=== PATIENT | female | born 1960 | race Caucasian/White ===

== ENCOUNTER 2019-02-20 09:53 | Inpatient (IN) | payer BC ==
[2019-02-20] MEDS ORDERED: Ondansetron INJ* 2 MG/ML VIAL IV PRN (10:10)
[2019-02-20] MEDS ORDERED: Ondansetron TAB* 4 MG PO PRN (11:03)
[2019-02-20] MEDS ORDERED: Ondansetron ODT TAB* 4 MG PO PRN (12:00)
[2019-02-20] MEDS ORDERED: fentaNYL PATCH 12 MCG/HR TRANSDERM SCH (12:00)
[2019-02-20] MEDS ORDERED: MORPHINE PO SCH (14:00)
[2019-02-20 14:56] LABS: ABS Basophils 0 10^3/ul (0-0.2); ABS Eosinophils 0.2 10^3/ul (0-0.6); ABS Lymphocytes 0.8 10^3/ul (1.0-4.8); ABS Monocytes 0.5 10^3/ul (0-0.8); ABS Neutrophils 4.7 10^3/ul (1.5-7.7); ABS Nucleated RBC 0 10^3/ul; Eosinophil % 2.8 %; Hematocrit 29 % (33-41); Hemoglobin 9.4 g/dL (12.0-16.0); Lymphocyte % 12.9 %; Mean Corpuscular HGB Conc 32 g/dL (31-36); Mean Corpuscular Hemoglobin 30 pg (27-31); Mean Corpuscular Volume 94 fL (80-97); Mean Platelet Volume 5.9 fL (7.4-10.4); Nucleated Red Blood Cells % 0.1; Platelet Count 522 10^3/uL (150-450); Red Blood Count 3.09 10^6 /uL (3.70-4.87); Red Cell Distribution Width 15 % (10.5-15); White Blood Count 6.3 10^3/uL (3.5-10.8)
[2019-02-20 15:05] LABS: Activated Partial Thrombo Time 40.3 seconds (26.0-36.3); INR 1.02 (0.77-1.02)
[2019-02-20] MEDS: Argatroban(*) 250 MG in NS 0.9% 250 ML* 247.5 ML IV SCH (15:16)
[2019-02-20 15:17] LABS: Albumin 2.7 g/dL (3.2-5.2); Albumin/Globulin Ratio 0.8 (1-3); BUN/Creatinine Ratio 30.5 (8-20); Calcium 8.6 mg/dL (8.6-10.3); EGFR African American 125.8 (>60); Globulin 3.6 g/dL (2-4); Potassium 4.1 mmol/L (3.5-5.0); Total Bilirubin 0.2 mg/dL (0.2-1.0); Total Protein 6.3 g/dL (6.4-8.9)
[2019-02-20] MEDS: fentaNYL Patch Check Q Shift 1 NOTE FOLLOW UP SCH (19:42)
[2019-02-20] MEDS: Amphetamine MIXED SALT TAB* 10 MG TAB PO SCH (20:15)
[2019-02-20] MEDS: Gabapentin CAP(*) 100 MG PO SCH (20:22)
[2019-02-20] MEDS: Atorvastatin* 40 MG TAB PO SCH (20:22)
[2019-02-20] MEDS: fentaNYL PATCH 12 MCG/HR TRANSDERM SCH (20:23)
[2019-02-21] MEDS: fentaNYL Patch Check Q Shift 1 NOTE FOLLOW UP SCH ×2 (06:34→19:18)
[2019-02-21] MEDS: Amphetamine MIXED SALT TAB* 10 MG TAB PO SCH ×2 (08:29→14:49)
[2019-02-21] MEDS: Gabapentin CAP(*) 100 MG PO SCH ×2 (09:00→20:53)
--- NOTE | 2019-02-21 11:53 | PN ---
Progress Note - Progress Note Date of Service: 02/21/19 SOAP: Subjective: []Doing well. Tolerating Argatroban. No complaints. Not in pain. Acetaminophen (Tylenol Tab*) 650 mg PO Q4H PRN PRN Reason: FEVER/PAIN Amphetamine/Dextroamphetamine (Adderall Tab*) 10 mg PO BID@0800,1300 [facility] Last Admin: 02/21/19 08:29 Dose: 10 mg Atorvastatin Calcium (Lipitor*) 40 mg PO 1700 [facility] Last Admin: 02/20/19 20:22 Dose: 40 mg Fentanyl (Duragesic Patch 12 Mcg/Hr *) 12 mcg TRANSDERM Q72HR@2100 [facility] Last Admin: 02/20/19 20:23 Dose: 12 mcg Gabapentin (Neurontin Cap(*)) 200 mg PO BID [facility] Last Admin: 02/21/19 09:00 Dose: Not Given Argatroban 250 mg/ Sodium (Chloride) 250 mls @ 8.87 mls/hr IV Q24H [facility]; Protocol Last Admin: 02/20/19 15:16 Dose: 8.4 mls/hr Morphine Sulfate (Morphine Oral Concentrate*) 5 mg PO Q4H PRN PRN Reason: PAIN Ondansetron HCl (Zofran Odt Tab*) 4 mg PO Q6H PRN PRN Reason: NAUSEA Pharmacy Profile Note (Fentanyl Patch Check Q Shift) 1 note FOLLOW UP 0700, 1900 [facility] Last Admin: 02/21/19 06:34 Dose: 1 note Objective: [] Vital Signs Temp Pulse Resp BP Pulse Ox 98.5 F 84 19 117/74 100 02/21/19 08:00 02/21/19 06:32 02/21/19 11:02 02/21/19 11:00 02/21/19 11:02 HEENT: MM, no lesions CTA RRR S1S2 +BS obese, NT ND Ext necrosis of L hand and good pusles other three. 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 Admission for titration of anticoagulation prior to amputation of necrotic hand. Plan: []1. Off pradaxa and will continue Argatroban. 2. Consider CT guided biopsy of lung lesion on Saturday 3. Plan amputation on Saturday. 4. Hold Argatroban 2 hrs prior to procedure and re-start as soon as feasible afterwards. 5. After amputation can go back on Pradaxa.
[2019-02-21] MEDS: Acetaminophen TAB* 325 MG PO PRN (14:49)
[2019-02-21] MEDS: Argatroban(*) 250 MG in NS 0.9% 250 ML* 247.5 ML IV SCH (14:49)
[2019-02-21] MEDS: Atorvastatin* 40 MG TAB PO SCH (17:30)
[2019-02-22 05:44] LABS: ABS Basophils 0 10^3/ul (0-0.2); ABS Eosinophils 0.2 10^3/ul (0-0.6); ABS Lymphocytes 0.6 10^3/ul (1.0-4.8); ABS Monocytes 0.4 10^3/ul (0-0.8); ABS Neutrophils 2.3 10^3/ul (1.5-7.7); ABS Nucleated RBC 0 10^3/ul; Eosinophil % 4.9 %; Hematocrit 24 % (33-41); Hemoglobin 7.9 g/dL (12.0-16.0); Lymphocyte % 17.3 %; Mean Corpuscular HGB Conc 33 g/dL (31-36); Mean Corpuscular Hemoglobin 30 pg (27-31); Mean Corpuscular Volume 92 fL (80-97); Nucleated Red Blood Cells % 0; Platelet Count 425 10^3/uL (150-450); Red Blood Count 2.63 10^6 /uL (3.70-4.87); Red Cell Distribution Width 15 % (10.5-15); White Blood Count 3.5 10^3/uL (3.5-10.8)
[2019-02-22 05:48] LABS: Activated Partial Thrombo Time 64.6 seconds (26.0-36.3); INR 1.52 (0.77-1.02)
[2019-02-22 05:55] LABS: ALT 5 U/L (7-52); Albumin 2.2 g/dL (3.2-5.2); Albumin/Globulin Ratio 0.7 (1-3); Alkaline Phosphatase 123 U/L (34-104); Blood Urea Nitrogen 18 mg/dL (6-24); CO2 Carbon Dioxide 28 mmol/L (22-32); Calcium 8.1 mg/dL (8.6-10.3); Chloride 105 mmol/L (101-111); EGFR African American 152.3 (>60); EGFR Non-African American 125.9 (>60); Globulin 3.2 g/dL (2-4); Glucose 93 mg/dL (70-100); Sodium 138 mmol/L (135-145); Total Protein 5.4 g/dL (6.4-8.9)
[2019-02-22 06:01] LABS: Anion Gap 5 mmol/L (2-11)
[2019-02-22 06:42] LABS: Potassium Redraw 3.8 mmol/L (3.5-5.0)
[2019-02-22] MEDS: fentaNYL Patch Check Q Shift 1 NOTE FOLLOW UP SCH ×2 (07:24→18:47)
--- NOTE | 2019-02-22 08:13 | PN ---
Progress Note - Progress Note Date of Service: 02/22/19 SOAP: Subjective: []Board but did fine yesterday. Pain controlled. Tolerating Argatroban. Acetaminophen (Tylenol Tab*) 650 mg PO Q4H PRN PRN Reason: FEVER/PAIN Last Admin: 02/21/19 14:49 Dose: 650 mg Amphetamine/Dextroamphetamine (Adderall Tab*) 10 mg PO BID@0800,1300 [facility] Last Admin: 02/21/19 14:49 Dose: 10 mg Atorvastatin Calcium (Lipitor*) 40 mg PO 1700 [facility] Last Admin: 02/21/19 17:30 Dose: 40 mg Fentanyl (Duragesic Patch 12 Mcg/Hr *) 12 mcg TRANSDERM Q72HR@2100 [facility] Last Admin: 02/20/19 20:23 Dose: 12 mcg Gabapentin (Neurontin Cap(*)) 200 mg PO BID [facility] Last Admin: 02/21/19 20:53 Dose: 200 mg Argatroban 250 mg/ Sodium (Chloride) 250 mls @ 8.87 mls/hr IV Q24H [facility]; Protocol Last Admin: 02/21/19 14:49 Dose: 6.3 mls/hr Morphine Sulfate (Morphine Oral Concentrate*) 5 mg PO Q4H PRN PRN Reason: PAIN Ondansetron HCl (Zofran Odt Tab*) 4 mg PO Q6H PRN PRN Reason: NAUSEA Pharmacy Profile Note (Fentanyl Patch Check Q Shift) 1 note FOLLOW UP 0700, 1900 [facility] Last Admin: 02/22/19 07:24 Dose: 1 not Objective: [] Vital Signs Temp Pulse Resp BP Pulse Ox 98 F 76 15 107/67 100 02/22/19 07:50 02/22/19 07:01 02/22/19 07:01 02/22/19 07:00 02/22/19 07:01 HEENT: MM, no lesions CTA RRR S1S2 +BS obese, NT ND Ext necrosis of L hand, bandaged today Neuro slow to respond but answering questions. 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 Admission for titration of anticoagulation prior to amputation of necrotic hand. Plan: []1. Off pradaxa and will continue Argatroban. 2. CT guided biopsy of lung lesion on Saturday, NPO after midnight 3. Plan amputation on Saturday. 4. Hold Argatroban 2 hrs prior to procedure and re-start as soon as feasible afterwards. 5. Anemia. Secondary to chronic disease, drop today likely delusion. Expect further blood loss with surgery. - Tx 1 U PRBC 5. After amputation can go back on Pradaxa.
[2019-02-22] MEDS: Gabapentin CAP(*) 100 MG PO SCH ×2 (09:16→20:48)
[2019-02-22] MEDS: Amphetamine MIXED SALT TAB* 10 MG TAB PO SCH ×2 (09:33→14:23)
[2019-02-22] MEDS: Acetaminophen TAB* 325 MG PO PRN (10:03)
[2019-02-22] MEDS: Atorvastatin* 40 MG TAB PO SCH (18:00)
[2019-02-22] MEDS: Morphine ORAL CONCENTRATE* 5 MG/0.25 ML ORAL.SYRIN PO PRN (21:48)
[2019-02-23] MEDS: Morphine ORAL CONCENTRATE* 5 MG/0.25 ML ORAL.SYRIN PO PRN (00:10)
[2019-02-23] MEDS: Argatroban(*) 250 MG in NS 0.9% 250 ML* 247.5 ML IV SCH ×3 (00:11→13:02)
[2019-02-23] MEDS: Acetaminophen TAB* 325 MG PO PRN ×2 (05:47→16:31)
[2019-02-23 07:01] LABS: ABS Basophils 0 10^3/ul (0-0.2); ABS Eosinophils 0.2 10^3/ul (0-0.6); ABS Lymphocytes 0.5 10^3/ul (1.0-4.8); ABS Monocytes 0.5 10^3/ul (0-0.8); ABS Neutrophils 3.8 10^3/ul (1.5-7.7); ABS Nucleated RBC 0 10^3/ul; Eosinophil % 3.9 %; Hematocrit 28 % (33-41); Hemoglobin 9.4 g/dL (12.0-16.0); Lymphocyte % 10.1 %; Mean Corpuscular HGB Conc 33 g/dL (31-36); Mean Corpuscular Hemoglobin 30 pg (27-31); Mean Corpuscular Volume 90 fL (80-97); Nucleated Red Blood Cells % 0; Platelet Count 432 10^3/uL (150-450); Red Blood Count 3.13 10^6 /uL (3.70-4.87); Red Cell Distribution Width 17 % (10.5-15); White Blood Count 5.1 10^3/uL (3.5-10.8)
[2019-02-23 07:22] LABS: Albumin 2.4 g/dL (3.2-5.2); Albumin/Globulin Ratio 0.7 (1-3); BUN/Creatinine Ratio 26.1 (8-20); Calcium 8.6 mg/dL (8.6-10.3); EGFR African American 167.7 (>60); EGFR Non-African American 138.6 (>60); Globulin 3.5 g/dL (2-4); Magnesium 1.7 mg/dL (1.9-2.7); Potassium 3.5 mmol/L (3.5-5.0); Total Bilirubin 0.3 mg/dL (0.2-1.0); Total Protein 5.9 g/dL (6.4-8.9)
[2019-02-23] MEDS: fentaNYL Patch Check Q Shift 1 NOTE FOLLOW UP SCH ×2 (07:37→21:27)
[2019-02-23] MEDS: Gabapentin CAP(*) 100 MG PO SCH ×2 (09:01→21:22)
[2019-02-23] MEDS: Amphetamine MIXED SALT TAB* 10 MG TAB PO SCH ×2 (09:01→13:07)
--- NOTE | 2019-02-23 09:28 | HP ---
Amended report to enter cosigning physician. PREOPERATIVE HISTORY AND PHYSICAL EXAM: DATE OF SURGERY/ADMISSION: 02/24/19 DATE OF OFFICE VISIT/ENCOUNTER: 02/19/19 ATTENDING SURGEON: Alexa ewing MD* (dictated by NAIN Carlton). PROCEDURE: Left hand amputation. HISTORY OF PRESENT ILLNESS: This is a 58-year-old female who has suffered from a sequence of unfortunate events recently. At the end of last year, she was diagnosed with uterine cancer and subsequently suffered from a hemorrhagic stroke and a thrombotic event in her left upper extremity. This has left her with a gangrenous left hand and she needs an amputation. She is treated by Dr. García. He plans to admit her to the hospital to address her anticoagulation to get her ready for surgery likely on 02/21/19. The drainage from her hand and wrist area has increased recently and there was some concern for infection. The patient is living at [facility] currently. She wears a brace on her hand and keeps it covered with a bandage. It was recently debrided by wound clinic doctor that resulted in a significant increase in the amount of bleeding. The patient was referred to Dr. Ewing by Dr. García for further evaluation and treatment consideration of the left hand. After medical history review of the patient and clinical evaluation, Dr. Ewing is recommending amputation of the left hand. The patient has consented to proceed. PAST MEDICAL HISTORY: 1. Heparin-induced thrombocytopenia. 2. History of heart attack. 3. History of DVT. 4. History of stroke. 5. Uterine cancer. PAST SURGICAL HISTORY: 1. . 2. Cholecystectomy. CURRENT MEDICATIONS: 1. Adderall 10 mg 1 tab twice a day. 2. Aspirin 325 mg daily. 3. Atorvastatin calcium 40 mg daily. 4. Bisacodyl 10 mg one suppository p.r.n., constipation. 5. Fentanyl 12 mcg apply and change patch q.72 hours. 6. Neurontin 100 mg 3 times a day. 7. Percocet 5/325 one to two tabs q.4 to 6 hours p.r.n. pain. 8. Pradaxa 150 mg twice a day. 9. Tylenol 325 mg 2 tabs every 4 hours p.r.n. pain. 10. Zofran 4 mg 1 every 12 hours as needed for nausea. ALLERGIES: HEPARIN. FAMILY MEDICAL HISTORY: Uterine cancer. SOCIAL HISTORY: The patient is currently a resident at [place]. She denies tobacco use, recreational drug use, and does not drink alcohol. REVIEW OF SYSTEMS: Negative for general, cephalic, cardiovascular, respiratory. GI: Positive for constipation. Negative . Musculoskeletal: Positive for current complaint and chronic neck/back pain. Integumentary: Positive for current complaint. Negative endocrine, neurologic, and hematologic symptoms. Infectious Disease: Negative for history of MRSA, hepatitis C, HIV. PHYSICAL EXAMINATION GENERAL: A well-developed, well-nourished 58-year-old female, in no acute distress. VITAL SIGNS: Height 5 feet 2 inches, weight 163 pounds, blood pressure 116/66. HEENT: Normocephalic, atraumatic. Pupils are equal, round, and reactive. Extraocular movements are intact. Throat is clear. NECK: Supple. No palpable lymph nodes. PULMONARY: Lungs are clear to auscultation bilaterally. No wheezes, rales, or rhonchi. CARDIOVASCULAR: Regular rate and rhythm. S1 and S2. No murmurs, rubs or gallops. ABDOMEN: Positive bowel sounds. Soft, nontender. MUSCULOSKELETAL: On exam of the left upper extremity, she has gangrene of her left hand, which extends proximal to the wrist on the dorsal aspect. There is some well- perfused skin on the volar aspect at the wrist and over the thenar eminence. There is no sign of active infection at this point, but there is a fair amount of bloody drainage. NEUROLOGIC: Alert and oriented x3. Cranial nerves II through XII are intact. IMPRESSION: Left hand gangrene. PLAN: The patient is scheduled to undergo a left hand amputation with Dr. Ewing on 02/24/19. Dr. García will admit the patient to the hospital a few days ahead of time to get her anticoagulation just right and then she will be seen back in the office by Dr. Ewing approximately 10 days postoperatively. We will plan on getting an x- ray of her left hand after she is admitted to the hospital to look for any evidence of osteomyelitis to help determine the level of amputation. Surgical procedure, risks, and benefits were explained to the patient and her daughter and all of their questions answered satisfactorily. NAIN CARLTON [id number]/[facility] #: [id number] NIRALI
--- NOTE | 2019-02-23 09:40 | PN ---
Progress Note - Progress Note Date of Service: 02/23/19 SOAP: Subjective: []Feeling OK, very nervous about surgery. Planned for surgery tomorrow 02/24 @ 0730. Goal of CT guided biopsy today, however unfortunately difficulty with coordination and may need to delay until 02/25. Daughter in room involved in care. Medications: Acetaminophen (Tylenol Tab*) 650 mg PO Q4H PRN PRN Reason: FEVER/PAIN Last Admin: 02/23/19 05:47 Dose: 650 mg Amphetamine/Dextroamphetamine (Adderall Tab*) 10 mg PO BID@0800,1300 [facility] Last Admin: 02/23/19 09:01 Dose: Not Given Atorvastatin Calcium (Lipitor*) 40 mg PO 1700 [facility] Last Admin: 02/22/19 18:00 Dose: 40 mg Fentanyl (Duragesic Patch 12 Mcg/Hr *) 12 mcg TRANSDERM Q72HR@2100 [facility] Last Admin: 02/20/19 20:23 Dose: 12 mcg Gabapentin (Neurontin Cap(*)) 200 mg PO BID [facility] Last Admin: 02/23/19 09:01 Dose: Not Given Argatroban 250 mg/ Sodium (Chloride) 250 mls @ 8.87 mls/hr IV Q24H [facility]; Protocol Last Admin: 02/23/19 07:36 Dose: 8.87 mls/hr Morphine Sulfate (Morphine Oral Concentrate*) 5 mg PO Q4H PRN PRN Reason: PAIN Last Admin: 02/23/19 00:10 Dose: 5 mg Ondansetron HCl (Zofran Odt Tab*) 4 mg PO Q6H PRN PRN Reason: NAUSEA Pharmacy Profile Note (Fentanyl Patch Check Q Shift) 1 note FOLLOW UP 0700, 1900 [facility] Last Admin: 02/23/19 07:37 Dose: 1 note Objective: [] Vital Signs Temp Pulse Resp BP Pulse Ox 99.1 F 77 11 135/77 96 02/23/19 08:51 02/23/19 09:00 02/23/19 09:00 02/23/19 08:00 02/23/19 09:00 A&Ox4, EOMI, communicating clearing and asking appropriate questions Left hemiparesis HRR, S1S2, SR on tele LS clear +BS, abd. soft and non-tender Left hand in brace, necrotic +PP=bilat., no edema noted Laboratory Results - last 24 hr 02/22/19 02/22/19 02/23/19 05:30 17:40 05:38 WBC 5.1 RBC 3.13 L Hgb 9.4 L Hct 28 L MCV 90 MCH 30 MCHC 33 RDW 17 H Plt Count 432 MPV 6.0 L Neut % (Auto) 74.9 Lymph % (Auto) 10.1 [place] % (Auto) 10.7 Eos % (Auto) 3.9 Baso % (Auto) 0.4 Absolute Neuts (auto) 3.8 Absolute Lymphs (auto) 0.5 L Absolute Monos (auto) 0.5 Absolute Eos (auto) 0.2 Absolute Basos (auto) 0 Absolute Nucleated RBC 0 Nucleated RBC % 0 APTT Sodium Potassium Chloride Carbon Dioxide Anion Gap BUN Creatinine Est GFR ( Amer) Est GFR (Non-Af Amer) BUN/Creatinine Ratio Glucose Calcium Magnesium Total Bilirubin AST ALT Alkaline Phosphatase Total Protein Albumin Globulin Albumin/Globulin Ratio Blood Type O Positive Antibody Screen Negative Crossmatch See Detail Donor Unit # [id number] Post-Trans Blood Type O Positive Post-Trans CLAIRE Negative 02/23/19 02/23/19 05:38 05:38 WBC RBC Hgb Hct MCV MCH MCHC RDW Plt Count MPV Neut % (Auto) Lymph % (Auto) [place] % (Auto) Eos % (Auto) Baso % (Auto) Absolute Neuts (auto) Absolute Lymphs (auto) Absolute Monos (auto) Absolute Eos (auto) Absolute Basos (auto) Absolute Nucleated RBC Nucleated RBC % APTT 65.2 H Sodium 138 Potassium 3.5 Chloride 104 Carbon Dioxide 28 Anion Gap 6 BUN 12 Creatinine 0.46 L Est GFR ( Amer) 167.7 Est GFR (Non-Af Amer) 138.6 BUN/Creatinine Ratio 26.1 H Glucose 85 Calcium 8.6 Magnesium 1.7 L Total Bilirubin 0.30 AST 12 L ALT 6 L Alkaline Phosphatase 130 H Total Protein 5.9 L Albumin 2.4 L Globulin 3.5 Albumin/Globulin Ratio 0.7 L Blood Type Antibody Screen Crossmatch Donor Unit # Post-Trans Blood Type Post-Trans CLAIRE Assessment: []58 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 Admission for titration of anticoagulation prior to amputation of necrotic left hand. Due to high risk for clotting will attempt biopsy of lung nodule for staging purposes while on argatroban. Plan: []1. Anti-coagulation: cont. Argatroban - hold 2 hours prior to surgery - resume approx. 1 hour post-op or as soon as feasible per surgeon's discretion r/t post-op bleeding - hopeful for CT guided biopsy of left lung nodule TRISTAN, likely 4/3 per busser, will need to hold argatroban 2 hours prior to biopsy and resume immediately post procedure, suggest monitoring overnight post biopsy - d/c home on pradaxa 2. Amputation: anti-coagulation as above - NPO after midnight - pt. and family with multiple questions regarding surgery, message send to Dr. Ewing - check CBC tomorrow pre-op, post-op, and 4/3 AM 3. Endometrial cancer: locally advanced and very high risk for debulking - biopsy of lung nodule for staging, re-eval. further tx. as outpatient Dispo: inpt. requiring intensive monitoring r/t coagulation risk
[2019-02-23] MEDS: Atorvastatin* 40 MG TAB PO SCH ×2 (13:07→15:44)
--- NOTE | 2019-02-23 16:14 | ECHO ---
Patient: VERNON SHEPARD [facility] Rec#: [id number] : 1960 Date: 02/23/2019 Age: 58y Height: 168 cm / 66.1 in Weight: 73 kg / 160.9 lbs Sex: F BSA: 1.83 Room#: ICU 3 Admit Date#: 02/20/2019 Type: Inpatient Referring: Corby García MD Reading: Samir Olmedo MD Tv Host: Lacey Breaux,ESDRASCS,RDMS CC: James Linn MD Transthoracic Echocardiogram Indication: [place] BP: 149/77 HR: 115 Rhythm: NSR Findings History: Metastatic uterine cancer, CVA, DVT Technical Comments: The study quality is good. Left Ventricle: The left ventricular chamber size is normal. Mild concentric left ventricular hypertrophy is observed. Global left ventricular wall motion and contractility are within normal limits. Left ventricular systolic function is at the lower limits of normal. The estimated ejection fraction is 50-55%. There is no consistent Doppler evidence of clinically significant diastolic dysfunction. Left Atrium: The left atrial chamber size is normal. Right Ventricle: The right ventricular chamber size and systolic function are within normal limits. Right Atrium: The right atrial cavity size is normal. Aortic Valve: The aortic valve is trileaflet. Systolic excursion of the aortic valve is normal. There is a trace of aortic regurgitation. There is no evidence of aortic stenosis. Mitral Valve: The mitral valve leaflets are mildly thickened. There is no evidence of mitral regurgitation. There is no evidence of mitral stenosis. Tricuspid Valve: The tricuspid valve leaflets are normal. There is no evidence of tricuspid valve regurgitation. Unable to estimate the right ventricular systolic pressure. Pulmonic Valve: The pulmonic valve structure is not well visualized. There is no evidence of pulmonic regurgitation. Pericardium: There is no significant pericardial effusion. Aorta: The aortic root appears normal. There is no dilatation of the aortic arch. Pulmonary Artery: The main pulmonary artery is not well visualized. Venous: The inferior vena cava appears normal in size. There is a greater than 50% respiratory change in the inferior vena cava dimension. Conclusions Mild concentric left ventricular hypertrophy is observed. Left ventricular systolic function is at the lower limits of normal. The estimated ejection fraction is 50-55%. The right ventricular chamber size and systolic function are within normal limits. There is no evidence of aortic stenosis. There is a trace of aortic regurgitation. There is no evidence of mitral regurgitation. There is no evidence of tricuspid valve regurgitation. There is no significant pericardial effusion. Measurements Name Value Normal Range RVIDd (AP) 2D 2.4 cm (0.9 - 2.6) RVDdMajor (2D) 2.1 cm (2.2 - 4.4) RAd ISD 4CH 5.2 cm (3.4 - 4.9) RA (A4C)W 2.9 cm (2.9 - 4.6) IVSd (2D) 1.1 cm (0.6 - 1) LVPWd (2D) 1.1 cm (0.6 - 1) LVIDd (2D) 4.7 cm (3.6 - 5.4) LVIDs (2D) 3 cm - LV FS (2D) 35 % (25 - 45) Aortic Annulus 2 cm (1.4 - 2.6) Ao root diameter (2D) 3.2 cm (2.1 - 3.5) Ascending Ao 2.8 cm (2.1 - 3.4) Aortic arch 2.4 cm (1.8 - 3.4) LA dimension (AP) 2D 3.2 cm (2.3 - 3.8) LAd ISD 4CH 4.6 cm (2.9 - 5.3) LA ISD 4CH W 4 cm (2.5 - 4.5) Name Value Normal Range LA ESV BP (A/L) index 19 ml/m2 - Name Value Normal Range MV E-wave Vmax 0.6 m/sec - MV deceleration time 74 msec - MV A-wave Vmax 0.8 m/sec - MV E:A ratio 0.7 ratio - P. vein S-wave Vmax 0.7 m/sec - P. vein D-wave Vmax 0.4 m/sec - P. vein S:D Vmax ratio 1.8 ratio - P. vein A-wave duration 92 msec - LV septal e' Vmax 0.06 m/sec - LV lateral e' Vmax 0.13 m/sec - LV E:e' septal ratio 10 ratio - LV E:e' lateral ratio 4 ratio - Name Value Normal Range AV Vmax 1.2 m/sec - AV VTI 19 cm - AV peak gradient 6 mmHg - AV mean gradient 3 mmHg - LVOT Vmax 0.9 m/sec - LVOT VTI 17 cm - LVOT peak gradient 3.2 mmHg - LVOT mean gradient 2 mmHg - KAROL Vmax 0.7 m/sec - Name Value Normal Range IVC diameter 1.4 cm - Name Value Normal Range PV Vmax 1.1 m/sec - PV peak gradient 5 mmHg -
[2019-02-23] MEDS: fentaNYL PATCH 12 MCG/HR TRANSDERM SCH (21:22)
[2019-02-24 04:36] LABS: ABS Basophils 0 10^3/ul (0-0.2); ABS Eosinophils 0.1 10^3/ul (0-0.6); ABS Lymphocytes 0.4 10^3/ul (1.0-4.8); ABS Monocytes 0.4 10^3/ul (0-0.8); ABS Neutrophils 2.7 10^3/ul (1.5-7.7); ABS Nucleated RBC 0 10^3/ul; Eosinophil % 3.6 %; Hematocrit 28 % (33-41); Hemoglobin 9.5 g/dL (12.0-16.0); Lymphocyte % 11.4 %; Mean Corpuscular HGB Conc 34 g/dL (31-36); Mean Corpuscular Hemoglobin 30 pg (27-31); Mean Corpuscular Volume 90 fL (80-97); Mean Platelet Volume 5.6 fL (7.4-10.4); Nucleated Red Blood Cells % 0.2; Platelet Count 408 10^3/uL (150-450); Red Blood Count 3.14 10^6 /uL (3.70-4.87); Red Cell Distribution Width 17 % (10.5-15); White Blood Count 3.7 10^3/uL (3.5-10.8)
[2019-02-24 04:46] LABS: EGFR African American 145.5 (>60); EGFR Non-African American 120.3 (>60)
[2019-02-24 04:54] LABS: INR 4.14 (0.77-1.02)
[2019-02-24 05:07] LABS: Activated Partial Thrombo Time 119.5 seconds (26.0-36.3)
[2019-02-24] MEDS ORDERED: Lactated Ringers 1000 ML Bag* 1,000 ML IV SCH (06:00)
[2019-02-24] MEDS: fentaNYL Patch Check Q Shift 1 NOTE FOLLOW UP SCH ×2 (07:07→19:29)
[2019-02-24] MEDS ORDERED: Lidocaine 1% INJ* 10 MG/ML 30 ML SDV ONE (07:11)
[2019-02-24] MEDS ORDERED: ceFAZolin 2 GM in NS PREMIX(*) 2 GM/100 ML BAG IVPB ONE (07:30)
[2019-02-24] MEDS ORDERED: Propofol* 10 MG/ML 20 ML BTL ONE (07:48)
[2019-02-24] MEDS ORDERED: Lidocaine 2% PF * 5 ML VIAL ONE (07:49)
[2019-02-24] MEDS ORDERED: Bupivacaine 0.5%* 50 ML VIAL ONE (07:52)
[2019-02-24] MEDS ORDERED: fentaNYL* 50 MCG/ML 2 ML VIAL (100 MCG VIAL) ONE ×3 (07:54→10:04)
[2019-02-24] MEDS ORDERED: oxyCODONE/Acetamin 5/325 MG* TAB PO PRN (09:10)
[2019-02-24] MEDS ORDERED: Naloxone* 0.4 MG/ML 1 ML VIAL IV PRN (09:13)
[2019-02-24] MEDS: fentaNYL* 50 MCG/ML 2 ML VIAL (100 MCG VIAL) IV PRN ×5 (09:28→10:06)
[2019-02-24] MEDS: Morphine ORAL CONCENTRATE* 5 MG/0.25 ML ORAL.SYRIN PO PRN (10:53)
[2019-02-24] MEDS: Amphetamine MIXED SALT TAB* 10 MG TAB PO SCH ×2 (11:07→14:26)
[2019-02-24] MEDS: Gabapentin CAP(*) 100 MG PO SCH ×2 (11:08→20:46)
[2019-02-24] MEDS: Argatroban(*) 250 MG in NS 0.9% 250 ML* 247.5 ML IV SCH ×2 (11:55→23:27)
[2019-02-24] MEDS ORDERED: Morphine 4 MG/ML VIAL (1 ml) 4 MG/ML VIAL ONE (12:07)
--- NOTE | 2019-02-24 12:11 | PN ---
Progress Note - Progress Note Date of Service: 02/24/19 SOAP: Subjective: [Amputation successfully completed. Patient is examined postoperatively in ICU. She is complaining of pain, but otherwise reports she tolerated the procedure well. Argatroban has been resumed.] Objective: [ Laboratory Results - last 24 hr 02/22/19 02/24/19 02/24/19 17:40 04:20 04:20 WBC 3.7 RBC 3.14 L Hgb 9.5 L Hct 28 L MCV 90 MCH 30 MCHC 34 RDW 17 H Plt Count 408 MPV 5.6 L Neut % (Auto) 72.7 Lymph % (Auto) 11.4 [place] % (Auto) 11.7 Eos % (Auto) 3.6 Baso % (Auto) 0.6 Absolute Neuts (auto) 2.7 Absolute Lymphs (auto) 0.4 L Absolute Monos (auto) 0.4 Absolute Eos (auto) 0.1 Absolute Basos (auto) 0 Absolute Nucleated RBC 0 Nucleated RBC % 0.2 INR (Anticoag Therapy) 4.14 H APTT 119.5 H* Creatinine Est GFR ( Amer) Est GFR (Non-Af Amer) POC Glucose (mg/dL) Transfusion React Rpt 02/24/19 02/24/19 04:20 06:08 WBC RBC Hgb Hct MCV MCH MCHC RDW Plt Count MPV Neut % (Auto) Lymph % (Auto) [place] % (Auto) Eos % (Auto) Baso % (Auto) Absolute Neuts (auto) Absolute Lymphs (auto) Absolute Monos (auto) Absolute Eos (auto) Absolute Basos (auto) Absolute Nucleated RBC Nucleated RBC % INR (Anticoag Therapy) APTT Creatinine 0.52 Est GFR ( Amer) 145.5 Est GFR (Non-Af Amer) 120.3 POC Glucose (mg/dL) 89 Transfusion React Rpt Acetaminophen (Tylenol Tab*) 650 mg PO Q4H PRN PRN Reason: FEVER/PAIN Last Admin: 02/23/19 16:31 Dose: 650 mg Amphetamine/Dextroamphetamine (Adderall Tab*) 10 mg PO BID@0800,1300 [facility] Last Admin: 02/24/19 11:07 Dose: Not Given Atorvastatin Calcium (Lipitor*) 40 mg PO 1700 [facility] Last Admin: 02/23/19 15:44 Dose: Not Given Fentanyl (Duragesic Patch 12 Mcg/Hr *) 12 mcg TRANSDERM Q72HR@2100 [facility] Last Admin: 02/23/19 21:22 Dose: 12 mcg Gabapentin (Neurontin Cap(*)) 200 mg PO BID [facility] Last Admin: 02/24/19 11:08 Dose: Not Given Lactated Ringer's (Lactated Ringers 1000 Ml Bag*) 1,000 mls @ 125 mls/hr IV PER RATE [facility] Last Admin: 02/24/19 05:15 Dose: 125 mls/hr Argatroban 250 mg/ Sodium (Chloride) 250 mls @ 6.65 mls/hr IV Q24H [facility]; Protocol Last Admin: 02/24/19 11:55 Dose: 6.65 mls/hr Morphine Sulfate (Morphine Oral Concentrate*) 5 mg PO Q4H PRN PRN Reason: PAIN Last Admin: 02/24/19 10:53 Dose: 5 mg Morphine Sulfate (Morphine 4 Mg/Ml Vial (1 Ml)) 4 mg IV Q2H PRN PRN Reason: PAIN Ondansetron HCl (Zofran Odt Tab*) 4 mg PO Q6H PRN PRN Reason: NAUSEA Pharmacy Profile Note (Fentanyl Patch Check Q Shift) 1 note FOLLOW UP 0700, 1900 [facility] Last Admin: 02/24/19 07:07 Dose: 1 note Vital Signs: Temp Pulse Resp BP Pulse Ox 96.8 F 90 19 136/81 98 02/24/19 09:09 02/24/19 11:30 02/24/19 11:30 02/24/19 11:30 02/24/19 11:30 Exam: Gen: Chronically ill appearing 58 yo female in [facility]. She is alert and lying comfortably accompanied by multiple family members HEENT: MMM CV: RRR, no m/r/g Resp: CTA Abd: soft, nonTTP Ext: clean surgical dressing over distal LUE, trace LE edema, L>R] [Assessment: []58 year old with h/o HIT and necrosis of Left hand as well as locally advanced to metastatic endometrial cancer. Admission for titration of anticoagulation prior to amputation of necrotic left hand. Due to high risk for clotting will attempt biopsy of lung nodule for staging purposes while on argatroban. Plan: []1. Anti-coagulation: - cont. Argatroban, it has now been resumed postoperatively - plan for CT guided biopsy of left lung nodule tomorrow, will need to hold argatroban 2 hours prior to biopsy and resume immediately post procedure, suggest monitoring overnight post biopsy - d/c home on pradaxa 2. Amputation: -post op day 0 - postoperative management per ortho group 3. Endometrial cancer: locally advanced s/p palliative RT - biopsy of lung nodule to determine whether she has metastatic disease, re- eval. further tx. as outpatient Dispo: inpt. requiring intensive monitoring r/t coagulation risk. Anticipate dc back to ]
[2019-02-24] MEDS: Morphine 4 MG/ML VIAL (1 ml) 4 MG/ML VIAL IV PRN ×2 (12:31→19:14)
[2019-02-24] MEDS: ceFAZolin 1 GM* X 3 DOSES POST-OP Q8H (AddVan) IVPB SCH ×4 (16:07→23:33)
--- NOTE | 2019-02-24 16:13 | OP ---
DATE OF OPERATION: 02/23/19 - ROOM #ICU-03 DATE OF : 56 SURGEON: Alexa Ewing MD WRAPPING CHECKER: NAIN Carlton ANESTHESIA: General. PRE-OP DIAGNOSIS: Gangrene of the left hand. POST-OP DIAGNOSIS: Gangrene of the left hand. OPERATIVE PROCEDURE: Left wrist disarticulation. INDICATIONS: Cynthia is 58-year-old woman who suffered a blood clot in her upper extremity on the left side and has developed gangrene of her left hand. She presents for hand amputation. ESTIMATED BLOOD LOSS: Less than 20 mL. DESCRIPTION OF PROCEDURE: The patient was brought to the operating room, was given a general anesthetic and placed in the supine position on the operating table with a tourniquet around her left upper arm. Skin of her left upper extremity was prepped and draped in the usual sterile fashion with Betadine. The forearm was exsanguinated and the tourniquet elevated to 250 mmHg. Skin incisions were made following the contour of the necrosis. There was a flap of good skin on the palmar surface. We then debrided sharply down to the radiocarpal joint and excised the entire carpus and the hand. The ulnar median and radial sensory nerves were located, brought out on tension and then incised and allowed to retract into the wound. The flexor and extensor tendons were treated the same with proximal incision and they were allowed to retract into the wound. The radial styloid was removed with a saw and a rasp was used to smooth the edges of the radius. The ulnar styloid was removed with a rongeur. All necrotic appearing tissue was then completely debrided. There were several areas of full-thickness skin loss on the forearm, which had abundant granulation tissue, granulation tissue was debrided and since these areas were well perfused, it was decided to allow them to heal by secondary intention. The skin flap was then reapproximated using the palmar tissue, brought up on to the dorsal surface with 4-0 nylon suture. The end of the wrist joint was well padded with subcutaneous tissue. Prior to closure, the wound was cultured. A [place] drain was placed in the wound because the patient will be on anticoagulants and this was to help prevent a large hematoma from forming. The wound was dressed with Xeroform, 4x4, Webril, ABD, and an [place] wrap. The patient tolerated the procedure well and was brought to the recovery room in good condition. [id number]/[facility] #: [id number] NIRALI
[2019-02-24] MEDS: Atorvastatin* 40 MG TAB PO SCH (16:50)
[2019-02-24] MEDS: Acetaminophen TAB* 325 MG PO PRN (20:46)
[2019-02-25] MEDS: Morphine 4 MG/ML VIAL (1 ml) 4 MG/ML VIAL IV PRN ×2 (05:11→21:29)
[2019-02-25 05:28] LABS: ABS Basophils 0 10^3/ul (0-0.2); ABS Eosinophils 0.1 10^3/ul (0-0.6); ABS Lymphocytes 0.6 10^3/ul (1.0-4.8); ABS Monocytes 0.7 10^3/ul (0-0.8); ABS Neutrophils 3.3 10^3/ul (1.5-7.7); ABS Nucleated RBC 0 10^3/ul; Eosinophil % 2.4 %; Hematocrit 25 % (33-41); Hemoglobin 8.2 g/dL (12.0-16.0); Mean Corpuscular HGB Conc 33 g/dL (31-36); Mean Corpuscular Hemoglobin 30 pg (27-31); Mean Corpuscular Volume 92 fL (80-97); Mean Platelet Volume 5.9 fL (7.4-10.4); Nucleated Red Blood Cells % 0; Platelet Count 359 10^3/uL (150-450); Red Blood Count 2.73 10^6 /uL (3.70-4.87); Red Cell Distribution Width 17 % (10.5-15); White Blood Count 4.7 10^3/uL (3.5-10.8)
[2019-02-25 05:51] LABS: Albumin 2.2 g/dL (3.2-5.2); Albumin/Globulin Ratio 0.8 (1-3); BUN/Creatinine Ratio 18.2 (8-20); Calcium 8.3 mg/dL (8.6-10.3); EGFR African American 136.4 (>60); EGFR Non-African American 112.7 (>60); Globulin 2.8 g/dL (2-4); Potassium 3.8 mmol/L (3.5-5.0); Total Bilirubin 0.3 mg/dL (0.2-1.0)
[2019-02-25] MEDS: fentaNYL Patch Check Q Shift 1 NOTE FOLLOW UP SCH ×2 (06:57→19:21)
[2019-02-25] MEDS: ceFAZolin 1 GM* X 3 DOSES POST-OP Q8H (AddVan) IVPB SCH ×2 (08:27)
--- NOTE | 2019-02-25 10:30 | PN ---
Progress Note - Progress Note Date of Service: 02/25/19 SOAP: Subjective: [Reports that she is feeling relatively well this am. Pain controlled. No new complaints.] Objective: [ Vital Signs: Temp Pulse Resp BP Pulse Ox 99.8 F 83 12 110/63 100 02/25/19 07:40 02/25/19 07:00 02/25/19 07:47 02/25/19 07:00 02/25/19 07:00 Acetaminophen (Tylenol Tab*) 650 mg PO Q4H PRN PRN Reason: FEVER/PAIN Last Admin: 02/24/19 20:46 Dose: 650 mg Amphetamine/Dextroamphetamine (Adderall Tab*) 10 mg PO BID@0800,1300 [facility] Last Admin: 02/24/19 14:26 Dose: Not Given Atorvastatin Calcium (Lipitor*) 40 mg PO 1700 [facility] Last Admin: 02/24/19 16:50 Dose: 40 mg Dabigatran (Pradaxa Cap(Nf)) 150 mg PO BID [facility] Fentanyl (Duragesic Patch 12 Mcg/Hr *) 12 mcg TRANSDERM Q72HR@2100 [facility] Last Admin: 02/23/19 21:22 Dose: 12 mcg Gabapentin (Neurontin Cap(*)) 200 mg PO BID [facility] Last Admin: 02/24/19 20:46 Dose: 200 mg Lactated Ringer's (Lactated Ringers 1000 Ml Bag*) 1,000 mls @ 125 mls/hr IV PER RATE [facility] Last Admin: 02/24/19 05:15 Dose: 125 mls/hr Argatroban 250 mg/ Sodium (Chloride) 250 mls @ 6.65 mls/hr IV Q24H [facility]; Protocol Stop: 02/25/19 13:00 Last Admin: 02/24/19 11:55 Dose: 6.65 mls/hr Morphine Sulfate (Morphine Oral Concentrate*) 5 mg PO Q4H PRN PRN Reason: PAIN Last Admin: 02/24/19 10:53 Dose: 5 mg Morphine Sulfate (Morphine 4 Mg/Ml Vial (1 Ml)) 4 mg IV Q2H PRN PRN Reason: PAIN Last Admin: 02/25/19 05:11 Dose: 4 mg Ondansetron HCl (Zofran Odt Tab*) 4 mg PO Q6H PRN PRN Reason: NAUSEA Last Admin: 02/24/19 13:09 Dose: 4 mg Oxycodone/Acetaminophen (Percocet 5/325 Tab*) 1 tab PO Q4H PRN PRN Reason: PAIN Oxycodone/Acetaminophen (Percocet 5/325 Tab*) 2 tab PO Q4H PRN PRN Reason: PAIN MORE SEVERE Pharmacy Profile Note (Fentanyl Patch Check Q Shift) 1 note FOLLOW UP 0700, 1900 JOSE Last Admin: 02/25/19 06:57 Dose: 1 note Laboratory Results - last 24 hr 02/22/19 02/24/19 02/25/19 17:40 21:30 05:01 WBC RBC Hgb Hct MCV MCH MCHC RDW Plt Count MPV Neut % (Auto) Lymph % (Auto) Early % (Auto) Eos % (Auto) Baso % (Auto) Absolute Neuts (auto) Absolute Lymphs (auto) Absolute Monos (auto) Absolute Eos (auto) Absolute Basos (auto) Absolute Nucleated RBC Nucleated RBC % APTT 55.3 H Sodium 136 Potassium 3.8 Chloride 104 Carbon Dioxide 28 Anion Gap 4 BUN 10 Creatinine 0.55 Est GFR ( Amer) 136.4 Est GFR (Non-Af Amer) 112.7 BUN/Creatinine Ratio 18.2 Glucose 91 Calcium 8.3 L Total Bilirubin 0.30 AST 10 L ALT 6 L Alkaline Phosphatase 108 H Total Protein 5.0 L Albumin 2.2 L Globulin 2.8 Albumin/Globulin Ratio 0.8 L Reaction Interpretation 02/25/19 02/25/19 02/25/19 05:10 05:10 09:15 WBC 4.7 RBC 2.73 L Hgb 8.2 L Hct 25 L MCV 92 MCH 30 MCHC 33 RDW 17 H Plt Count 359 MPV 5.9 L Neut % (Auto) 70.3 Lymph % (Auto) 13.0 Early % (Auto) 13.8 Eos % (Auto) 2.4 Baso % (Auto) 0.5 Absolute Neuts (auto) 3.3 Absolute Lymphs (auto) 0.6 L Absolute Monos (auto) 0.7 Absolute Eos (auto) 0.1 Absolute Basos (auto) 0 Absolute Nucleated RBC 0 Nucleated RBC % 0 APTT 41.3 H 66.6 H Sodium Potassium Chloride Carbon Dioxide Anion Gap BUN Creatinine Est GFR ( Amer) Est GFR (Non-Af Amer) BUN/Creatinine Ratio Glucose Calcium Total Bilirubin AST ALT Alkaline Phosphatase Total Protein Albumin Globulin Albumin/Globulin Ratio Reaction Interpretation Exam: Gen: Chronically ill appearing 58 yo female in NAD. 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 Admission for titration of anticoagulation prior to amputation of necrotic left hand. Due to high risk for clotting will attempt biopsy of lung nodule for staging purposes while on argatroban. Plan: []1. Anti-coagulation: - cont. Argatroban this am, plan to stop at 1300 with lung biopsy scheduled for 1500, can resume Pradaxa following the biopsy 2. Amputation: -post op day 1 - postoperative management per ortho group 3. Endometrial cancer: locally advanced s/p palliative RT - biopsy of lung nodule to determine whether she has metastatic disease, re- eval. further tx. as outpatient Dispo: inpt. requiring intensive monitoring r/t coagulation risk. Anticipate dc back to [facility] tomorrow am
[2019-02-25] MEDS: oxyCODONE/Acetamin 5/325 MG* TAB PO PRN ×2 (12:39→19:44)
[2019-02-25] MEDS: Gabapentin CAP(*) 100 MG PO SCH ×2 (12:40→21:20)
[2019-02-25] MEDS: Amphetamine MIXED SALT TAB* 10 MG TAB PO SCH ×2 (12:41→15:30)
--- NOTE | 2019-02-25 13:36 | PN ---
Progress Note - Progress Note Date of Service: 02/25/19 SOAP: Subjective: []Pt seen OOB in chair, family present. Pain is well controlled at rest, 7/10 surgical site pain with movement of the left arm Objective: []General: Sitting comfortably in ICU, NAD LUE: Left wrist dressing dry and intact, mild dried blood distally. Forearm is compressible. No erythema proximal to dressing. Assessment: []POD 1 sp left wrist disarticulation Plan: [] Will change dressing and pull drain tomorrow NWB LUE Vital Signs Temp 99.2 F 02/25/19 13:18 Pulse 84 02/25/19 11:01 Resp 15 02/25/19 13:00 BP 123/75 02/25/19 11:00 Pulse Ox 100 02/25/19 11:01 Intake & Output 02/24/19 02/25/19 02/25/19 18:59 06:59 18:59 Intake Total 1324 1550.4 Output Total 0 Balance 1324 1550.4 0 Weight 162 lb 4.8 oz Intake: IV Fluids 1084 400 LR 984 400 NS 100ML, Cefazolin 2G 100 IVPB 800 LR 800 Medicated IV 100.4 argatroban 100.4 Oral 240 250 Output: Urine 0 Other: Estimated Void Large Large # Voids 1 Laboratory Last Values WBC 4.7 10^3/uL (3.5-10.8) 02/25/19 05:10 RBC 2.73 10^6 /uL (3.70-4.87) L 02/25/19 05:10 Hgb 8.2 g/dL (12.0-16.0) L 02/25/19 05:10 Hct 25 % (33-41) L 02/25/19 05:10 MCV 92 fL (80-97) 02/25/19 05:10 MCH 30 pg (27-31) 02/25/19 05:10 MCHC 33 g/dL (31-36) 02/25/19 05:10 RDW 17 % (10.5-15) H 02/25/19 05:10 Plt Count 359 10^3/uL (150-450) 02/25/19 05:10 MPV 5.9 fL (7.4-10.4) L 02/25/19 05:10 Neut % (Auto) 70.3 % 02/25/19 05:10 Lymph % (Auto) 13.0 % 02/25/19 05:10 Bacon % (Auto) 13.8 % 02/25/19 05:10 Eos % (Auto) 2.4 % 02/25/19 05:10 Baso % (Auto) 0.5 % 02/25/19 05:10 Absolute Neuts (auto) 3.3 10^3/ul (1.5-7.7) 02/25/19 05:10 Absolute Lymphs (auto) 0.6 10^3/ul (1.0-4.8) L 02/25/19 05:10 Absolute Monos (auto) 0.7 10^3/ul (0-0.8) 02/25/19 05:10 Absolute Eos (auto) 0.1 10^3/ul (0-0.6) 02/25/19 05:10 Absolute Basos (auto) 0 10^3/ul (0-0.2) 02/25/19 05:10 Absolute Nucleated RBC 0 10^3/ul 02/25/19 05:10 Nucleated RBC % 0 02/25/19 05:10 INR (Anticoag Therapy) 4.14 (0.77-1.02) H 02/24/19 04:20 APTT 66.6 seconds (26.0-36.3) H 02/25/19 09:15 Sodium 136 mmol/L (135-145) 02/25/19 05:01 Potassium 3.8 mmol/L (3.5-5.0) 02/25/19 05:01 Chloride 104 mmol/L (101-111) 02/25/19 05:01 Carbon Dioxide 28 mmol/L (22-32) 02/25/19 05:01 Anion Gap 4 mmol/L (2-11) 02/25/19 05:01 BUN 10 mg/dL (6-24) 02/25/19 05:01 Creatinine 0.55 mg/dL (0.51-0.95) 02/25/19 05:01 Est GFR ( Amer) 136.4 (>60) 02/25/19 05:01 Est GFR (Non-Af Amer) 112.7 (>60) 02/25/19 05:01 BUN/Creatinine Ratio 18.2 (8-20) 02/25/19 05:01 Glucose 91 mg/dL (70-100) 02/25/19 05:01 POC Glucose (mg/dL) 89 mg/dL (70-100) 02/24/19 06:08 Calcium 8.3 mg/dL (8.6-10.3) L 02/25/19 05:01 Magnesium 1.7 mg/dL (1.9-2.7) L 02/23/19 05:38 Total Bilirubin 0.30 mg/dL (0.2-1.0) 02/25/19 05:01 AST 10 U/L (13-39) L 02/25/19 05:01 ALT 6 U/L (7-52) L 02/25/19 05:01 Alkaline Phosphatase 108 U/L (34-104) H 02/25/19 05:01 Total Protein 5.0 g/dL (6.4-8.9) L 02/25/19 05:01 Albumin 2.2 g/dL (3.2-5.2) L 02/25/19 05:01 Globulin 2.8 g/dL (2-4) 02/25/19 05:01 Albumin/Globulin Ratio 0.8 (1-3) L 02/25/19 05:01 Blood Type O Positive 02/22/19 05:30 Antibody Screen Negative 02/22/19 05:30 Crossmatch See Detail 02/22/19 05:30 Transfusion React Rpt 02/22/19 17:40 Donor Unit # [id number] 02/22/19 17:40 Post-Trans Blood Type O Positive 02/22/19 17:40 Post-Trans CLAIRE Negative 02/22/19 17:40 Reaction Interpretation 02/22/19 17:40
[2019-02-25] MEDS: Argatroban(*) 250 MG in NS 0.9% 250 ML* 247.5 ML IV SCH (15:28)
[2019-02-25] MEDS ORDERED: CMCS: Dabigatran CAP(NF) 150 MG CAP PO SCH (17:00)
[2019-02-25] MEDS ORDERED: Argatroban(*) 250 MG in NS 0.9% 250 ML* 247.5 ML IV SCH (18:00)
[2019-02-25] MEDS: Atorvastatin* 40 MG TAB PO SCH (18:25)
[2019-02-25] MEDS ORDERED: ARGATROBAN IV SCH (18:30)
[2019-02-25] MEDS ORDERED: NS 0.9% IV SCH (18:30)
[2019-02-26] MEDS: Morphine 4 MG/ML VIAL (1 ml) 4 MG/ML VIAL IV PRN (03:04)
[2019-02-26 05:31] LABS: ABS Basophils 0 10^3/ul (0-0.2); ABS Eosinophils 0.2 10^3/ul (0-0.6); ABS Lymphocytes 0.5 10^3/ul (1.0-4.8); ABS Monocytes 0.5 10^3/ul (0-0.8); ABS Neutrophils 2.6 10^3/ul (1.5-7.7); ABS Nucleated RBC 0 10^3/ul; Hematocrit 26 % (33-41); Hemoglobin 8.5 g/dL (12.0-16.0); Lymphocyte % 12.2 %; Mean Corpuscular HGB Conc 33 g/dL (31-36); Mean Corpuscular Hemoglobin 30 pg (27-31); Mean Corpuscular Volume 92 fL (80-97); Mean Platelet Volume 5.9 fL (7.4-10.4); Nucleated Red Blood Cells % 0; Platelet Count 341 10^3/uL (150-450); Red Blood Count 2.82 10^6 /uL (3.70-4.87); Red Cell Distribution Width 16 % (10.5-15); White Blood Count 3.8 10^3/uL (3.5-10.8)
[2019-02-26 05:48] LABS: BUN/Creatinine Ratio 21.2 (8-20); Calcium 8.5 mg/dL (8.6-10.3); EGFR African American 145.5 (>60); EGFR Non-African American 120.3 (>60); Potassium 3.5 mmol/L (3.5-5.0)
[2019-02-26] MEDS: fentaNYL Patch Check Q Shift 1 NOTE FOLLOW UP SCH (07:15)
[2019-02-26] MEDS: Gabapentin CAP(*) 100 MG PO SCH (09:00)
--- NOTE | 2019-02-26 11:45 | DS ---
- Discharge Summary Admission Date: Discharge Date: 02/26/19 Discharge Diagnosis: 1. Left writs disarticulation: POD 2, no pain 2. Pro-thrombotic state: resume pradaxa 3. Endometrial cancer: further tx. recommendations to follow recovery from surgery 4. Depression and anxiety: follow as outpatient Discharge Medications: Medication Instructions Recorded Confirmed Type Acetaminophen [Tylenol] 650 mg PO Q6HR PRN 02/16/19 02/20/19 History Aspirin TAB* [Aspirin 325 MG TAB*] 325 mg PO DAILY 02/16/19 02/20/19 History Atorvastatin* [Lipitor 40 MG*] 40 mg PO 1700 02/16/19 02/20/19 History Dabigatran Etexilate Mesylate 150 mg PO BID 02/16/19 02/20/19 History [Pradaxa] Dextroamphetamine/Amphetamine 0.5 tab PO BID 02/16/19 02/20/19 History [Adderall 20 mg Tablet] Gabapentin CAP(*) [Neurontin 100 200 mg PO BID 02/16/19 02/20/19 History mg CAP(*)] Ondansetron TAB* [Zofran 4 MG Tab*] 4 mg PO Q6H PRN 02/16/19 02/20/19 History fentaNYL PATCH 12 MCG/HR * 12 mcg TRANSDERM Q72H 02/16/19 02/20/19 History [Duragesic Patch 12 Mcg/Hr *] Morphine ORAL.CONC BULK BOT* 0.25 ml PO Q4HR 02/20/19 02/20/19 History [Roxanol ORAL.CONC Bottle*] oxyCODONE/Acetamin 5/325 MG* 1 tab PO Q4H PRN #30 tab MDD 6 tabs 02/26/19 Rx [Percocet 5/325 TAB*] Activity: recommend PT/OT Diet: resume regular diet Wound care: maintain surgical dressing until f/u with Dr. Ewing 03/05 Disposition: return to [facility], in good condition Hospital Course: Please see admission note for full H&P, however briefly, Mrs. Gardner was recently diagnosed with locally advanced endometrial cancer at the end of 2017. 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 She was first seen by local oncology on 01/30/19 at which time she had some functional improvement and it was recommend that she consider palliative amputation. Due to her significant thrombitic history she was admitted for anti-coagulation with IV argatroban on 02/20/19 with left wrist disarticulation on 02/24/[address] Ewing. Per operative notes there were no obvious complications and her post operative course has been unremarkable. Unfortunately her discharge was delayed by planned CT guided biopsy of a left lower lung nodule that the patient had verbally consented to and then recanted. Last night the recommendation for metastatic work-up and anti-coagulation requirements were discussed at length with the patient and family and she again agreed to the procedure, however this AM after a second extensive discussion regarding the recommendation she has declined further work-up. As such she will be discharged back to [facility] at [facility] on pradaxa and follow-up with both surgery and oncology next week. Plan of care was reviewed at length with the patient and daughter, all questions answered. Follow-up surgery, Dr. Ewing 03/05/19 Follow-up Hem/onc 03/03/19 >40 min spent with >50% face to face counseling
[2019-02-26] MEDS ORDERED: CMCS Dabigatran CAP(NF) 150 MG CAP PO SCH (12:00)
--- NOTE | 2019-02-26 12:46 | PN ---
Progress Note - Progress Note Date of Service: 02/26/19 SOAP: Subjective: [] Pt seen at bedside. Her pain is better controlled today. Denies feeling of fever, chills, CP, SOB. Objective: []General: Sitting comfortably in bed in the ICU, NAD LUE: Left wrist dressing changed, incision with well approximated wound edges, on the distal ulnar aspect there is a quarter sized macerated area. Drain was pulled without complication. There is no erythema and no purulence. There is no active bleeding though the underlayers of the dressing were soaked through with blood. Distally well perfused with capillary refill less than two seconds and sensation intact to light touch. Forearm is compressible. Redressed with xeroform, 4x4s, abd's, kerlix, shelley Assessment: []POD 2 sp left wrist disarticulation Plan: [] BILL LEDEZMA Keep dressing CDI until follow up visit 03/[address] Ewing. Call for questions or concerns prior to this
[2019-02-26 14:28] VITALS: BP 116/67
== END 2019-02-26 17:00 | DRG 180 ==
LOC: ICU 10:28
PROVIDERS: ADMIT Internal Medicine Hematology & Oncology; ATTEND Internal Medicine Hematology & Oncology
PROC: 30233N1 Transfusion of Nonautologous Red Blood Cells into Peripheral Vein, Percutaneous Approach (ICD-10-PCS; 2019-02-22)
PROC: 0X6 Anatomical Regions, Upper Extremities, Detachment (ICD-10-PCS; principal; 2019-02-23)
DX: I96 Gangrene, not elsewhere classified (principal); C79.9 Secondary malignant neoplasm of unspecified site; I69.154 Hemiplegia and hemiparesis following nontraumatic intracerebral hemorrhage affecting left non-dominant side; C54.1 Malignant neoplasm of endometrium; K59.00 Constipation, unspecified; F32.9 Major depressive disorder, single episode, unspecified; E78.5 Hyperlipidemia, unspecified; F41.9 Anxiety disorder, unspecified; D63.8 Anemia in other chronic diseases classified elsewhere; B96.20 Unspecified Escherichia coli [E. coli] as the cause of diseases classified elsewhere; I10 Essential (primary) hypertension; E66.9 Obesity, unspecified; Z68.25 Body mass index [BMI] 25.0-25.9, adult; Z86.711 Personal history of pulmonary embolism; I25.2 Old myocardial infarction; Z86.718 Personal history of other venous thrombosis and embolism; Z90.49 Acquired absence of other specified parts of digestive tract; Z88.8 Allergy status to other drugs, medicaments and biological substances; Z80.49 Family history of malignant neoplasm of other genital organs; Z79.82 Long term (current) use of aspirin
CPT/HCPCS: 36415; 80048; 80053; 82565; 83735; 85025; 85610; 85730; 86078; 86850; 86900; 86901; 86922; 87070; 87073; 87076; 87077; 87185; 87186; 87205; 87641; 88307; 88311; 93005; 93306; 99222; 99232; 99233; A9270-GY; C1751; J0690; J0883; J2270; J2704; J3010; P9040

== ENCOUNTER 2019-03-26 12:42 | Inpatient (IN) | payer BC ==
[2019-03-26] MEDS ORDERED: NS 0.9% 1000 ML** 1,000 ML IV ONE (12:46)
--- NOTE | 2019-03-26 12:52 | ED ---
Neurological HPI - HPI Summary HPI Summary: LEVEL 5 CAVEAT: HPI LIMITED DUE TO PT CONDITION: EXTREMIS Pt is a 58 y/o F brought in by ambulance for L-sided neurological deficits. Windy Mitchell called in the field at 1235. Per EMS: Pt had a previous [place] in November [place] [facility] [facility] , and saw her today at 1000 at sx were present; EMS was called at approx 1215; last known well is unknown; patient is unable to stand, she has L-sided facial hemiparesis, L-sided weakness, and occipital VALERA. She is on a daily blood thinner. PMHx includes: stroke, CA, DVT, OK. Per daughter: Pt was at baseline yesterday when she saw her. She spoke to her by phone last night and patient seemed normal. The daughter says her brother was with the patient at 2100 last night, and patient seemed normal then. Today, when daughter arrives at 1000, she noticed the patient had slurred speech, delayed speech, and general "cognitive decline." Pt had a stroke on 12/06/18 and was evaluated in [place]. Pt has previous L-sided weakness due to her prior stroke. ED provider met EMS and patient upon arrival in ED at 1243. Dr. Zuñiga, neuro, present at this time as well. - History of Current Complaint Stated Complaint: WINDY MITCHELL PER EMS Hx Obtained From: Family/Wardrobe Assistant - daughter, EMS, Medical Records Hx From Patient Unobtainable Due To: Extremis Onset/Duration: Still Present Timing: Constant Current Severity: Severe Character: Paralysis - L-sided face, Impaired Speech, Confusion - "cognitive decline" Associated Signs and Symptoms: Positive: Headache, Confusion, Weakness - L-sided , Impaired Speech - slurred and delayed speech Related Hx: Anticoagulants - Additional Pertinent History Primary Care Physician: [id number] - Allergy/Home Medications Allergies/Adverse Reactions: Allergies Allergy/AdvReac Type Severity Reaction Status Date / Time heparin Allergy Intermediate See Comment Verified 03/26/19 13:32 Home Medications: Home Medications Bisacodyl SUPP* [Dulcolax Supp*] 10 mg ME DAILY PRN 03/26/19 [History Confirmed 03/26/19] Dabigatran CAP(NF) [Pradaxa CAP(NF)] 150 mg PO BID 03/26/19 [History Confirmed 03/26/19] PMH/Surg Hx/FS Hx/Imm Hx Previously Healthy: No - CA Endocrine/Hematology History: Denies: Hx Diabetes Cardiovascular History: Reports: Hx Deep Vein Thrombosis, Hx Hypertension, Hx Myocardial Infarction Comment Only: Other Cardiovascular Problems/Disorders - PE, Thrombosis History: Denies: Hx Dialysis, Hx Renal Disease Comment Only: Other Problems/Disorders - intermittent incontinence Sensory History: Denies: Hx Contacts or Glasses, Hx Hearing Aid Opthamlomology History: Denies: Hx Contacts or Glasses Neurological History: Reports: Hx Spinal Cord Injury, Other Neuro Impairments/ Disorders - Stroke - Cancer History Cancer Type, Location and Year: uterine 09/08/18 - Surgical History Surgery Procedure, Year, and Place: 1985; Gallbladder 2014 - Family History Family History: Uterine CA - Social History Occupation: Retired Lives: At [facility] Alcohol Use: None Hx Substance Use: No Hx Tobacco Use: No Smoking Status (MU): Unknown if Ever Smoked Review of Systems - ROS Summary Review of Systems Summary: LEVEL 5 CAVEAT: ROS LIMITED DUE TO PT CONDITION, EXTREMIS Neurological: Other - pos: "cognitive decline" Positive: Headache, Weakness - L-sided including L-sided facial hemiparesis, Slurred Speech - and delayed speech All Other Systems Reviewed And Are Negative: No Physical Exam - Summary Physical Exam Summary: VITAL SIGNS: Reviewed. GENERAL: Patient is a well-developed and nourished FEMALE who is lying comfortable in the stretcher. Patient is not in any acute respiratory distress. HEAD AND FACE: No signs of trauma. No ecchymosis, hematomas or skull depressions. No sinus tenderness. EYES: PERRLA, EOMI x 2, No injected conjunctiva, no nystagmus. No photophobia. EARS: Hearing grossly intact. Ear canals and tympanic membranes are within normal limits. MOUTH: Oropharynx within normal limits. NECK: Supple, trachea is midline, no adenopathy, no JVD, no carotid bruit, no c- spine tenderness, neck with full ROM. No meningeal signs, no Kernig's or Brudzinskis signs. CHEST: Symmetric, no tenderness at palpation LUNGS: Clear to auscultation bilaterally. No wheezing or crackles. CVS: Regular rate and rhythm, S1 and S2 present, no murmurs or gallops appreciated. ABDOMEN: Soft, non-tender. No signs of distention. No rebound, no guarding, and no masses palpated. Bowel sounds are normal. EXTREMITIES: FROM in all major joints, no edema, no cyanosis or clubbing. Pt has a L hand amputation. NEURO: Alert and oriented x 3. Very delayed speech, mild slurred speech; generalized weakness. L-side is paralyzed. RLE weak. RUE is unremarkable. NIH: 14. SKIN: Dry and warm GCS: 15 Triage Information Reviewed: Yes Vital Signs Reviewed: Yes Completion Of Physical Exam Limited Due To: Extremis - Pato Coma Scale Best Eye Response: 4 - Spontaneous Best Motor Response: 6 - Obeys Commands Best Verbal Response: 5 - Oriented Coma Scale Total: 15 Diagnostics - Laboratory Result Diagrams: 03/27/19 05:58 03/27/19 05:55 Lab Statement: Any lab studies that have been ordered have been reviewed, and results considered in the medical decision making process. - Radiology CXR Radiology Interpretation Completed By: Radiologist Summary of Radiographic Findings: IMPRESSION: #. Unchanged bilateral focal pulmonary lesions compared with the February 16, 2019 CT. #. No additional acute pulmonary or cardiac process evident. ED provider has reviewed this report. - CT Brain CT CT Interpretation Completed By: Radiologist Summary of CT Findings: IMPRESSION: NO ACUTE INTRACRANIAL PATHOLOGY. REMOTE RIGHT MCA INFARCT. ED provider has reviewed this report. - EKG 1307 Cardiac Rate: NL - 88 bpm EKG Rhythm: Sinus Rhythm EKG Comparison: No Significant Change - from EKG on 02/24/19. Summary of EKG Findings: No ST elevation. NIH Scale - NIH Scale Level of Consciousness: Alert/Keenly Responsive Ask Patient the Month and His/Her Age: Both Correct Ask Pt to Open/Close Eyes and Forensics Analyst/Release Non-Paretic Hand: Both Correctly Best Gaze (Only Horizontal Eye Movement): Partial Gaze Palsy - to the R Visual Field Testing: No Visual Loss Facial Paresis-Pt to Smile & Close Eyes or Grimace Symmetry: Normal/Symmetrical Motor Function - Right Arm: No Drift-Holds 10 Seconds Motor Function - Left Arm: No Movement Motor Function - Right Leg: Drifts LT 10 seconds Motor Function - Left Leg: No Movement Limb Ataxia-Must be out of Proportion to Weakness Present: Present in One Limb Sensory (Use Pinprick to Test Arms/Legs/Trunk/Face): Pinprick Less on Affected Best Language (Describe Picture, Name Items): Some Loss Dysarthria (Read Several Words): Slurs Some Words Extinction and Inattention: No Abnormality Total Score: 14 Re-Evaluation - Re-Evaluation 1 Re-Evaluation Time: 13:07 Change: Unchanged Comment: ED provider and Dr. Zuñiga, neuro, at bedside. 2 Re-Evaluation Time: 13:48 Change: Unchanged Comment: Pt agrees to cath urine. Course/Dx - Course Assessment/Plan: This patient is an 58-year-old female with past medical history of heparin-induced thrombocytopenia, OK, DVT, CVA, UTI and cancer presents to the emergency department with a chief complaint of having slurred speech, slight confusion, and increased weakness in the left side. There is no known time of onset of symptoms. These symptoms were observed by the patients daughter who sees the patient every day. Windy mitchell was initiated from the field. Dr. Zuñiga recommends a head CT at this point. Blood work without any significant abnormality except for hemoglobin 11.2, hematocrit is 34, INR 1.44, PTT of 74.6, alkaline phosphatase is 158, albumin 2.7. Head CT impression: No acute intracranial pathology. Remote right MCA infarct. Chest x-ray impression : Unchanged bilateral focal pulmonary lesions compared with February 16, 2019. No additional acute pulmonary or cardiac process evident. Dr. Zuñiga from neurology and states that the patient is not a candidate for TPA since there is no known time of onset of symptoms, and the patients blood thinners. He recommends to do an MRI of the pain and MRA of the head and neck with contrast. Urinalysis positive for UTI therefore, the patient was given Rocephin. He also recommends for the patient to be admitted to the hospital services. At this point I discussed my physical exam and findings with Dr. Georges from the hospital services who accepted the patient for admission. - Diagnoses Provider Diagnoses: CVA (cerebral vascular accident), UTI (urinary tract infection) During the Visit The Following Alert/Code Occurred: Windy Paul - called [facility] at 1253, ETA 6 minutes. - Critical Care Time Critical Care Time: 75-104 min Discharge - Sign-Out/Discharge Documenting (check all that apply): Patient Departure - ADMIT Patient Received Moderate/Deep Sedation with Procedure: No - Discharge Plan Condition: Stable Disposition: [facility]MITTED TO [facility] - Billing Disposition and Condition Condition: STABLE Disposition: Admitted to [facility] - Attestation Statements Document Initiated by Melanieibjuani: Yes Documenting Scribe: Rickey Herring Provider For Whom Berhane is Documenting (Include Credential): Dr. Esa Rey MD Scribe Attestation: I, Rickey Herring, scribed for Dr. Esa Rey MD on 03/27/19 at 0720. Scribe Documentation Reviewed: Yes Provider Attestation: The documentation as recorded by the scribe, Rickey Herring accurately reflects the service I personally performed and the decisions made by me, Dr. Esa Rey MD Status of Scribe Document: Viewed Consult Consult: 1243: Dr. Zuñiga, neuro, present upon patient arrival in ED. 1259: Consulted with Dr. Velasco, radiology: Brain CT shows an old L MCA, nothing acute 1313: Consulted with Dr. Zuñiga: Does not recommend CTA, but requesting Brain MRI without contrast and head/neck MRA. 1441: Consulted with Dr. Georges, hospitalist: Will admit patient.
--- OUTSIDE RECORDS SUMMARY | 2019-03-26 12:58 | XMS REPORT | Continuity of Care Document ---
:1960 External Reference #:[id number] Author Name Jonathan Pizano Care Team Providers Name Role Phone James Linn MD Primary Care Physician Unavailable Payers Date Identification Numbers Payment Provider Subscriber Policy Number: [id number] [employer] Cynthia Gardner PayID: [id number] [address] [address] [place] [address] Advance Directives Description No Information Available Problems Description No Information Family History Date Family Member(s) Observation Comments General Uterine Cancer Social History Type Date Description Comments Sex Unknown Lives With [employer] Occupation Unemployed Tobacco Use Start: Unknown Patient smoking status is unknown Smoking Status Reviewed: 03/16/19 Patient smoking status is unknown Allergies, Adverse Reactions, Alerts Active Allergies Reaction Severity Comments Date Heparin 02/19/2019 Medications Active Medications SIG Qnty Indications Ordering Date Provider Adderall take 1 tablet by Unknown 10mg Tablets mouth two times daily -- maximum daily dose of 2 per day Atorvastatin Calcium 1 by mouth every day Unknown 40mg Tablets Aspirin take 1 by mouth Unknown 325mg Tablets Bisacodyl insert 1 suppository Unknown 10mg rectally every 24 Suppository hours as needed for constipation, insert ideally after breakfast Fentanyl apply and change Unknown 12mcg/HR patch q72h Patches 72HR Neurontin 1 by mouth three Unknown 100mg times a day Capsules Pradaxa 1 tab by mouth twice Unknown 150mg Capsules a day Tylenol 2 tabs by mouth Unknown 325mg Tablets every 4 hours as needed Zofran 1 every 12 hours as Unknown 4mg Tablets needed Percocet 1 - 2 tabs by mouth Unknown 5-325mg every 4 - 6 hours as Tablets needed for pain. Immunizations Description No Information Available Vital Signs Date Vital Result Comment 03/16/2019 1:08pm Height 66 inches 5'6" Weight 160.00 lb Heart Rate 89 /min Respiratory Rate 16 /min Body Temperature 96.1 F BMI (Body Mass Index) 25.8 kg/m2 03/05/2019 8:49am Height 62 inches 5'2" Weight 163.00 lb BP Systolic 122 mmHg BP Diastolic 82 mmHg Respiratory Rate 14 /min Body Temperature 97.4 F Pain Level 6 BMI (Body Mass Index) 29.8 kg/m2 02/19/2019 8:47am Height 62 inches 5'2" Weight 163.00 lb BP Systolic 116 mmHg BP Diastolic 66 mmHg Respiratory Rate 14 /min Body Temperature 97.5 F Pain Level 5 BMI (Body Mass Index) 29.8 kg/m2 Results Description No Information Available Procedures Date Code Description Status 02/23/2019 36147 ECHO Transthorasic Realtime 2D W Doppler & Color Flow Hosp Completed Encounters Type Date Location Provider Dx Diagnosis Office Visit 02/19/2019 [facility], [address] [place] , not 8:30[facility] elsewhere classified Plan of Treatment Future Appointment(s):03/30/2019 2:00 pm - Alexa Ewing M.D. at [facility]
[2019-03-26 13:48] LABS: Activated Partial Thrombo Time 74.6 seconds (26.0-36.3); INR 1.44 (0.82-1.09)
[2019-03-26 13:53] LABS: ABS Eosinophils 0.1 10^3/ul (0-0.6); ABS Lymphocytes 0.7 10^3/ul (1.0-4.8); ABS Monocytes 0.4 10^3/ul (0-0.8); ABS Neutrophils 5.1 10^3/ul (1.5-7.7); Eosinophil % 1.8 %; Hematocrit 34 % (35-47); Hemoglobin 11.2 g/dL (12.0-16.0); Lymphocyte % 11.1 %; Mean Corpuscular HGB Conc 33 g/dL (31-36); Mean Corpuscular Hemoglobin 30 pg (27-31); Mean Corpuscular Volume 92 fL (80-97); Mean Platelet Volume 6.5 fL (7.4-10.4); Platelet Count 378 10^3/uL (150-450); Red Blood Count 3.72 10^6 /uL (3.70-4.87); Red Cell Distribution Width 15 % (10.5-15); White Blood Count 6.3 10^3/uL (3.5-10.8)
[2019-03-26 13:58] LABS: Troponin I 0.01 ng/mL (<0.04)
[2019-03-26 14:01] LABS: Albumin 2.7 g/dL (3.2-5.2); Albumin/Globulin Ratio 0.7 (1-3); BUN/Creatinine Ratio 17.4 (8-20); Calcium 9.3 mg/dL (8.6-10.3); EGFR Non-African American 86.8 (>60); Globulin 3.9 g/dL (2-4); HDL Cholesterol 58.2 mg/dL; Potassium 4.3 mmol/L (3.5-5.0); Total Bilirubin 0.3 mg/dL (0.2-1.0); Total Protein 6.6 g/dL (6.4-8.9)
[2019-03-26 14:54] LABS: Urine Appearance Cloudy; Urine Bacteria 1+ (Absent); Urine Bilirubin Negative (Negative); Urine Blood Negative (Negative); Urine Color Yellow; Urine Glucose Negative (Negative); Urine Ketones Negative (Negative); Urine Nitrite Positive (Negative); Urine Protein Negative (Negative); Urine Red Blood Cell Trace(0-2/hpf) (Absent); Urine Specific Gravity 1.013 (1.010-1.030); Urine Squamous Epithelial Cell Present (Absent); Urine Urobilinogen Negative (Negative); Urine White Blood Cell 3+(>20/hpf) (Absent)
[2019-03-26] MEDS ORDERED: cefTRIAXone(*) 1 GM in NS 0.9% 50 ML* 50 ML IVPB ONE (15:09)
[2019-03-26] MEDS ORDERED: Ondansetron TAB* 4 MG PO PRN (15:38)
[2019-03-26] MEDS ORDERED: Bisacodyl SUPP* 10 MG SUPP PR PRN (15:38)
[2019-03-26] MEDS ORDERED: Morphine ORAL CONCENTRATE* 5 MG/0.25 ML ORAL.SYRIN PO PRN (15:42)
--- NOTE | 2019-03-26 15:43 | CONS ---
NEUROLOGY CONSULTATION NOTE: DATE OF CONSULT: 03/26/19 CONSULTING PROVIDER: Dr. Rey. INDICATION: Code Mitchell due to worsening neurological deficits. CHIEF COMPLAINT: Slurred speech and slow thinking. HISTORY OF PRESENT ILLNESS: Ms. 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 At baseline, the patient was at rehab and she was getting ready to go home tomorrow to live with her daughter. However, this morning at approximately 10 a.m., the patient was noticed to have trouble working with the therapist, feeling drowsy, with slurring her words, and slightly confused. The daughter stated that the patient was completely normal last night at 9 p.m. on 03/25/19. The patient is complaining that her speech is getting worse. There is no reported new weakness. Her systolic blood pressure was slightly low when EMS arrived today with systolic of 105. Her Accu-Chek was normal. The patient denied any dysuria or fevers. She was immediately worked up for possible stroke via CT head without contrast that showed no acute intracranial abnormality and no hemorrhage. CTA head and neck was not obtained as the patient was slowly coming back to her normal self once her blood pressure slightly increased and she lied supine. According to the patient's daughter, right now the patient seems like she is in her normal state of health with significant chronic deficits on the left side. CT head without contrast showed no evidence of acute intracranial abnormality. We are pending the laboratory data. PAST MEDICAL HISTORY: Heparin-induced thrombocytopenia, myocardial infarction, DVT, ischemic stroke, uterine cancer. PAST SURGICAL HISTORY: , cholecystectomy. MEDICATIONS: 1. Ondansetron 4 mg p.o. every 6 hours as needed. 2. Gabapentin 200 mg p.o. t.i.d. 3. Fentanyl patch 12 mcg an hour to change every 72 hours. 4. Atorvastatin 40 mg daily. 5. Adderall 10 mg p.o. twice daily. 6. Acetaminophen 325 mg tablet to take 650 mg p.o. as needed. 7. Pradaxa 150 mg p.o. b.i.d. 8. Dulcolax 10 mg p.o. daily p.r.n. ALLERGIES: To HEPARIN. FAMILY MEDICAL HISTORY: Uterine cancer. There is no family history of stroke or seizures. SOCIAL HISTORY: She resides at [place]. She denied any tobacco or alcohol use. REVIEW OF SYSTEMS: A 14-point review of systems was obtained and otherwise negative except for the HPI. PHYSICAL EXAM: Vials: Temperature of 98.1, pulse of 94, respiratory rate of 15 , oxygen saturation of 100%, blood pressure of 118/83. NIH Stroke Scale of 19 due to chronic deficits, but if we would correct the NIH Stroke Scale and only taking to consideration, the patient's complaints which include slurred speech, it would be 1- 2. General: Well-nourished, well-developed female, who is very pleasant, who has mild psychomotor slowing, but is alert and cooperative. She appears older than stated age. Head: Normocephalic, atraumatic. Eyes: Conjunctivae/ corneas are clear. Neck is supple and symmetrical with no carotid bruit. Lungs are clear to auscultation bilaterally. Cardiovascular: Regular rate and rhythm with normal S1, S2. Extremities: Normal range of motion except for she has a distal left upper extremity amputation up to the wrist. Skin: No skin lesions or lacerations. Psych: Affect is broad and normal mood. Neurological Examination: Mental Status: She is awake, alert, oriented to person, place, time, and general circumstances. She has moderate dysarthria. She has mild psychomotor slowing. Cranial Nerves: Normal confrontation testing bilaterally. She has forced deviation towards the right, but she can overcome her eyes towards the left. Sensation is intact in the forehead, cheeks, and jaw region bilaterally. She has a left facial droop. She is able to hear throughout the history process. Normal strength against shoulder resistance. Motor Examination: She has complete left hemiplegia. She has slightly 4/5 strength in the right lower extremity. She has normal strength in the right upper extremity. Reflexes, right/left: Brachioradialis 1/2, biceps 1/2, triceps 1/2 , patella 1/2, ankle 0/0, plantar flexor/extensor. Sensation is intact to light touch throughout except for reduced sensation to the left upper and lower extremities. Coordination: Normal [id number] on the right. Gait and station were not assessed as the patient is only able to stand and pivot since her stroke. ASSESSMENT AND RECOMMENDATIONS: Ms. Cynthia Gardner is a 58-year-old female with history of recent right middle cerebral artery vascular territory ischemic infarction with no history of any hemorrhagic stroke in the past, who has profound residual left hemiplegia and is permanently disabled. She presented to [facility] via EMS as a Code Mitchell for worsening slurred speech and confusion. The patient was found to have a systolic blood pressure in the 100s upon presentation and as soon as it increased to about 120, the patient's mentation improved. The current working diagnosis is recrudescence of previous neurological deficits in the setting of possible hypoperfusion in the setting of hypotension or due to an underlying infection. The latter is less likely given she has no fevers or symptoms of an infection. Other possible differential diagnosis includes new embolic strokes involving the right hemisphere or focal seizures with postictal confusion. Please obtain the following: We have ordered an MRI of the brain without contrast, MRA head and neck without contrast, urinalysis, blood cultures, and an EEG to evaluate for epileptiform abnormalities. The patient is not a candidate for IV tPA as her last known well time is greater than 4-1/2 hours and she is taking Pradaxa. She is also not a great candidate for mechanical thrombectomy given her baseline disability, and given that her symptoms are improving when her blood pressure increased. We are going to see a chronic occlusion of the right middle cerebral artery, but this would preclude her from having any endovascular therapy. Another precluding factor again is the modified [place] Scale; in this case is about 4 to 5 at baseline, hence usually the goal for thrombectomy therapy is to improve overall disability scale. I discussed this with the patient and her daughter who verbalized understanding. Again, the daughter agreed to not to emergently proceed with CTAs at this time and get an MRI of the brain with MRA to look at the intracranial vasculature and they are aware that she probably would not be a great candidate for mechanical thrombectomy. Please admit to the hospitalist service, neuro checks every 4 hours. Please do not give her any heparin products given her history of heparin-induced thrombocytopenia. No need for DVT prophylaxis since she is on Pradaxa. Consult PT and OT to evaluate and treat. Continue supportive care. TIME SPENT: I spent a total of 40 critical care minutes obtaining history , examining the patient, education, counseling, interpreting the CT scan results , and discussing the tPA contraindication in this case. [id number]/[facility] #: [id number] ADDENDUM: After reviewing the urinalysis results the patient was found to have a UTI. This is most likely the cause of her worsening neurological status. I discontinued the MRIs. I recommend treating her UTI. If her symptoms do not continue to improve, or she does not return to baseline the next 24-48 hours, then I recommend further imaging. Neurology will sign off but please contact us for any questions or concerns. NIRALI
[2019-03-26] MEDS ORDERED: fentaNYL PATCH 12 MCG/HR TRANSDERM SCH (16:00)
--- NOTE | 2019-03-26 18:27 | HP ---
CC: Dr. James Linn * HISTORY AND PHYSICAL: DATE OF ADMISSION: 03/26/2019 PRIMARY CARE PHYSICIAN: Dr. James Linn. HCP: her oldest children, Katharina and Juan. CODE STATUS: Full. CHIEF COMPLAINT: Several hours of slow mentation and tiredness. HISTORY OF PRESENT ILLNESS: Ms. Gardner is a 58-year-old woman with a history of endometrial cancer, status post hysterectomy and heparin-induced thrombocytopenia, complicated by right MCA stroke with residual left-sided weakness, who is presenting from [facility] with slurred speech and delayed mentation beyond her baseline. Daughter reports that she is generally a fast talker and very alert and conversant. Her daughter was talking with her last night and this is how she was at her baseline. However, approximately 10 a.m. on morning of presentation, the patient was noted to have difficulty working out with her rehabilitation team, most notably difficulty standing. The patient 's daughter reports that the patient had just been feeling generally with low energy, somewhat drowsy and possibly slurring her words. The daughter reports that she had similar symptoms in the past when her Adderall dose was withheld at rehab for a couple of days; however, at that time, the patient ended up sleeping a lot, whereas today the patient has not expressed the need to take a nap or go to sleep. The patient denies cough, fevers, focal weakness, numbness. In the emergency room, the patient had a head CT that was without acute intracranial abnormality or hemorrhage. The patient was seen and evaluated by Neurology and was initially recommended for a brain MRI with MRA. The patient' s mental status improved after 1 L IV fluids and she was found without new focal neuro deficits. When her urinalysis resulted with concern for possible UTI, Neurology recommended to discontinue the MRI given very high likelihood that current presentation consistent with metabolic encephalopathy from urinary tract infections. PAST MEDICAL HISTORY: 1. Endometrial cancer, status post hysterectomy, diagnosed in 2017. 2. Pulmonary embolism, September 2018, initially treated with Lovenox, but then complicated by HIT. 3. HIT, complicated by MCA stroke with subsequent left hemiparesis and thrombus of the left upper extremity, complicated by necrosis of the left hand now, status post amputation, now on argatroban. PAST SURGICAL HISTORY: Hysterectomy, left wrist disarticulation, cholecystectomy. HOME MEDICATIONS: 1. Fentanyl patch 12 mcg an hour. 2. Dabigatran 150 mg twice a day. 3. Gabapentin 200 mg 3 times a day. 4. Ondansetron 4 mg every 6 hours as needed for nausea. 5. Bisacodyl 10 mg NM daily as needed for constipation. 6. Atorvastatin 40 mg daily. 7. Adderall 10 mg twice a day. ALLERGIES: HEPARIN, heparin-induced thrombocytopenia. FAMILY HISTORY: Reviewed and noncontributory. SOCIAL HISTORY: The patient lives at [facility] for rehab and was planned to live with her daughter after discharge. Her 4 children, Cynthia, Paulie, Katharina and Juan are closely involved in her care. PHYSICAL EXAMINATION GENERAL: Chronically ill-appearing woman, older than her stated age. Alert and conversant with mildly delayed speech. VITAL SIGNS: Afebrile, heart rate 80s, blood pressure 118/83, respiratory rate 12, oxygen saturation 100% on room air. HEENT: Old bruising around left orbit with small dried scab. Moist mucous membranes. NECK: No JVD. LUNGS: Clear to auscultation bilaterally. HEART: Regular rate and rhythm. No murmurs, gallops, or rubs. ABDOMEN: Soft, nontender, nondistended. BACK: No CVA tenderness. EXTREMITIES: Lower extremities, brace around left lower extremity with 1+ edema shelter of shins on left, trace edema over ankle on right. Left upper extremity with healing green ecchymosis lateral to upper arm, nontender. Left hand amputated, covered in gauze, warm and well perfused distally. NEURO: Gaze deviated towards right. Left facial droop with flattening of left nasolabial folds. Complete left hemiplegia. Normal right-sided strength. Reduced sensation in left upper and lower extremities. DIAGNOSTIC STUDIES/LAB DATA: Labs reviewed and notable for white blood count 6.3 and hemoglobin 11.2, above baseline of approximately 8 to 9. INR 1.4. BMP unremarkable. Albumin 2.7. UA with positive nitrite, 3+ leukocyte esterase, 3+ wbc, 1+ bacteria, hyaline cast present. Brain CT with no acute intracranial pathology with remote right MCA infarct. Chest x-ray with unchanged bilateral focal pulmonary lesions compared to prior for a month and a half ago. No additional acute pulmonary cardiac process evident. ASSESSMENT AND PLAN: A 58-year-old woman with history of locally advanced endometrial cancer, status post hysterectomy, complicated by pulmonary embolism , put on Lovenox, complicated by heparin-induced thrombocytopenia, complicated by right middle cerebral artery stroke with L-hemiparesis and then thrombotic event in left upper extremity, now status post hand amputation, who is presenting with acute delayed mentation, slowed speech and weakness, found in emergency room with normal head CT and UA concerning for infection. 1. For urinary tract infection, we will start the patient on ceftriaxone, followup urine cultures, monitor mental status closely. Give IVF prn. 2. Heparin-induced thrombocytopenia, complicated by stroke and left upper extremity thrombus. Continue on dabigatran 150 mg twice a day. 3. History of cerebrovascular accident with residual pain and left-sided hemiparaplegia. Continue fentanyl patch with gabapentin and morphine sublingual as needed for severe pain. 4. Attention deficit disorder. Continue home Adderall. 5. DVT prophylaxis not indicated given therapeutic anticoagulation. 6. Code status is full. TIME SPENT: Approximately 60 minutes was spent on admission of this patient, more than half of which was spent at bedside for the interview and exam. [id number]/[facility] #: [id number] NIRALI
[2019-03-26] MEDS: fentaNYL Patch Check Q Shift 1 NOTE FOLLOW UP SCH (22:17)
[2019-03-26] MEDS: CMCS: Dabigatran CAP(NF) 150 MG CAP PO SCH (22:19)
[2019-03-26] MEDS: Gabapentin CAP(*) 100 MG PO SCH (22:20)
[2019-03-26] MEDS: Amphetamine MIXED SALT TAB* 10 MG TAB PO SCH (22:21)
[2019-03-27 06:28] LABS: ABS Eosinophils 0.1 10^3/ul (0-0.6); ABS Lymphocytes 0.5 10^3/ul (1.0-4.8); ABS Monocytes 0.4 10^3/ul (0-0.8); ABS Neutrophils 4.2 10^3/ul (1.5-7.7); Eosinophil % 2.3 %; Hematocrit 30 % (35-47); Hemoglobin 9.8 g/dL (12.0-16.0); Mean Corpuscular HGB Conc 32 g/dL (31-36); Mean Corpuscular Hemoglobin 30 pg (27-31); Mean Corpuscular Volume 92 fL (80-97); Mean Platelet Volume 6.5 fL (7.4-10.4); Platelet Count 332 10^3/uL (150-450); Red Blood Count 3.28 10^6 /uL (3.70-4.87); Red Cell Distribution Width 15 % (10.5-15); White Blood Count 5.3 10^3/uL (3.5-10.8)
[2019-03-27 06:56] LABS: BUN/Creatinine Ratio 23.4 (8-20); Calcium 8.5 mg/dL (8.6-10.3); EGFR African American 114.5 (>60); EGFR Non-African American 94.7 (>60); Potassium 4.1 mmol/L (3.5-5.0)
[2019-03-27] MEDS: fentaNYL Patch Check Q Shift 1 NOTE FOLLOW UP SCH ×2 (07:21→19:04)
[2019-03-27] MEDS: CMCS: Dabigatran CAP(NF) 150 MG CAP PO SCH ×2 (09:10→22:57)
[2019-03-27] MEDS: Amphetamine MIXED SALT TAB* 10 MG TAB PO SCH ×2 (09:10→17:36)
[2019-03-27] MEDS: Gabapentin CAP(*) 100 MG PO SCH ×2 (09:10→13:54)
[2019-03-27] MEDS: Atorvastatin* 40 MG TAB PO SCH (09:10)
[2019-03-27] MEDS: Acetaminophen TAB* 325 MG PO PRN ×2 (11:16→19:51)
--- NOTE | 2019-03-27 11:51 | PN ---
Subjective Date of Service: 03/27/19 Length of Stay: 1 Days Neurology is following for worsening slurred speech and confusion. Interval History: The patient feels slightly better today but not back to her baseline status from 2 days ago. She still feels like her speech is not the same and she feels down. The patient endorsed feeling depressed, hopeless, worthless, and has no energy to do anything or participate with physical therapy. This is not new and has persisted since her stroke. She denied any weakness in the right arm or leg. She was discovered to have a urinary tract infection yesterday on UA. Pending culture. Ms. Gardner denied any headache, visual disturbance, swallowing difficulty, chest pain, or shortness of breath. She denied any abdominal pain, nausea, or vomiting. Review of Systems: Denied CP, SOB, or palpitations. Objective Active Medications: Acetaminophen (Tylenol Tab*) 650 mg PO Q4HR PRN PRN Reason: FEVER/PAIN Last Admin: 03/27/19 11:16 Dose: 650 mg Amphetamine/Dextroamphetamine (Adderall Tab*) 10 mg PO 0800,1800 [facility] Last Admin: 03/27/19 09:10 Dose: 10 mg Atorvastatin Calcium (Lipitor*) 40 mg PO DAILY [facility] Last Admin: 03/27/19 09:10 Dose: 40 mg Bisacodyl (Dulcolax Supp*) 10 mg ID DAILY PRN PRN Reason: CONSTIPATION Dabigatran (Pradaxa Cap(Nf)) 150 mg PO BID [facility] Last Admin: 03/27/19 09:10 Dose: 150 mg Fentanyl (Duragesic Patch 12 Mcg/Hr *) 12 mcg TRANSDERM Q72H [facility] Last Admin: 03/26/19 22:21 Dose: Not Given Gabapentin (Neurontin Cap(*)) 200 mg PO TID [facility] Last Admin: 03/27/19 09:10 Dose: 200 mg Ceftriaxone Sodium 1 gm/ (Sodium Chloride) 50 mls @ 200 mls/hr IVPB Q24H [facility] Morphine Sulfate (Morphine Oral Concentrate*) 5 mg PO Q6H PRN PRN Reason: SEVERE PAIN Ondansetron HCl (Zofran Tab*) 4 mg PO Q6H PRN PRN Reason: NAUSEA Pharmacy Profile Note (Fentanyl Patch Check Q Shift) 1 note FOLLOW UP 0700, 1900 [facility] Last Admin: 03/27/19 07:21 Dose: 1 note Vital Signs 03/27/19 03/27/19 03/27/19 00:25 03:03 07:55 Temperature 97.5 F 98.2 F Pulse Rate 86 90 Respiratory 16 17 20 Rate Blood Pressure 99/61 115/70 (mmHg) O2 Sat by Pulse 97 98 Oximetry 03/27/19 03/27/19 09:10 09:28 Temperature Pulse Rate Respiratory 16 16 Rate Blood Pressure (mmHg) O2 Sat by Pulse 98 Oximetry Intake and Output Last 24 Hours 03/25/19 03/26/19 03/27/19 03/28/19 06:59 06:59 06:59 06:59 Intake Total 530 Balance 530 Weight 144 lb 1.6 oz Intake: IV Fluids 50 Oral 480 Other: Estimated Void Large # Bowel Movements 0 # Voids 3 Oxygen Devices in Use Now: None Neurology Exam: General: Ill appearing frail female in no distress. HEENT: Normocephelic/atraumatic, sclera anicteric, mucous membranes moist Neck: Supple Chest: Clear to auscultation bilaterally Cardiovascular: Regular rate and rhythm without murmurs, rubs, gallops Abdomen: Soft, non-tender/non-distended Extremities: No clubbing, cyanosis, or edema. S/p amputation of the left hand at the wrist. Neurological Findings: Awake, alert, and oriented to person, place, and time. Speech: Mild-moderate spastic dysarthria. Cranial Nerve: PERRL, EOM-I, deviated towards the right but can overcome midline to look towards the left. Left facial droop Motor: left hemiplegia. 4/5 strength to hip flexion and knee flexion on the right lower extremity. Normal strength of the right arm. She has flexor contracture on the left upper extremity. Sensation: reduced sensation to light touch throughout. Deep Tendon Reflex: 1+ on the right and 2+ on the left. She has a brace on the left distal lower extremity. Normal finger to nose on the right. Gait: n/a Result Diagrams: 03/27/19 05:58 03/27/19 05:55 Additional Lab and Data: UA: positive for pyuria Assessment/Plan 1. Worsening dysarthria- most likely due to recrudescence of previous neurological symptoms in the setting of UTI. Clinically improving after antibiotic therapy but still not completely back to baseline. We cannot entirely exclude a new area of infarction especially since she was slightly hypotensive yesterday. Recommendations: - Ordered MRI brain without contrast. If negative, continue antibiotic therapy for UTI and she may benefit from STR. If MRI positive for new stroke (less likely), then we need to consider changing the anticoagulation therapy. Hematology consultation will be warranted at that time given her complicated history. - Vitamin B12 level (add on order) 2. UTI- on Rocephin I will sign out to Dr. Jarrett who will be covering the service this weekend. If the MRI is negative, there will be no further neurological work-up needed and neurology will sign off.
[2019-03-27] MEDS ORDERED: cefTRIAXone(*) 1 GM in NS 0.9% 50 ML* 50 ML IVPB SCH (16:00)
--- NOTE | 2019-03-27 16:23 | PN ---
Subjective Date of Service: 03/27/19 Interval History: Pt noted to have UA concerning for infection yesterday, so started on CTX in the evening. Today with improvement in sleepiness/fatigue, but reports at baseline having low energy and feelings of depression since stroke. Patient states she feels back near baseline, but her children think her mentation is still significantly slower. Neuro has re-ordered Brain MRI. Objective Active Medications: Acetaminophen (Tylenol Tab*) 650 mg PO Q4HR PRN PRN Reason: FEVER/PAIN Last Admin: 03/27/19 11:16 Dose: 650 mg Amphetamine/Dextroamphetamine (Adderall Tab*) 10 mg PO 0800,1800 [facility] Last Admin: 03/27/19 09:10 Dose: 10 mg Atorvastatin Calcium (Lipitor*) 40 mg PO DAILY [facility] Last Admin: 03/27/19 09:10 Dose: 40 mg Bisacodyl (Dulcolax Supp*) 10 mg NE DAILY PRN PRN Reason: CONSTIPATION Dabigatran (Pradaxa Cap(Nf)) 150 mg PO BID [facility] Last Admin: 03/27/19 09:10 Dose: 150 mg Fentanyl (Duragesic Patch 12 Mcg/Hr *) 12 mcg TRANSDERM Q72H [facility] Last Admin: 03/26/19 22:21 Dose: Not Given Gabapentin (Neurontin Cap(*)) 200 mg PO TID [facility] Last Admin: 03/27/19 13:54 Dose: 200 mg Ceftriaxone Sodium 1 gm/ (Sodium Chloride) 50 mls @ 200 mls/hr IVPB Q24H [facility] Morphine Sulfate (Morphine Oral Concentrate*) 5 mg PO Q6H PRN PRN Reason: SEVERE PAIN Last Admin: 03/27/19 14:09 Dose: 5 mg Ondansetron HCl (Zofran Tab*) 4 mg PO Q6H PRN PRN Reason: NAUSEA Pharmacy Profile Note (Fentanyl Patch Check Q Shift) 1 note FOLLOW UP 0700, 1900 [facility] Last Admin: 03/27/19 07:21 Dose: 1 note Vital Signs - 8 hr 03/27/19 03/27/19 03/27/19 09:10 09:28 11:15 Temperature 97.6 F Pulse Rate 96 Respiratory 16 16 18 Rate Blood Pressure 95/61 (mmHg) O2 Sat by Pulse 98 96 Oximetry 03/27/19 03/27/19 13:54 14:09 Temperature Pulse Rate Respiratory 16 16 Rate Blood Pressure (mmHg) O2 Sat by Pulse Oximetry Oxygen Devices in Use Now: None Appearance: chronically ill-appearing, older than stated age; slow responses to questions; quiet voice Ears/Nose/Mouth/Throat: Mucous Membranes Moist Respiratory: - - clear anteriorly Cardiovascular: RRR Abdominal: NL Sounds; No Tenderness; No Distention, - - no suprapubic tenderness Extremities: - - 1+ edema over LLE retirement up shins, trace on R Result Diagrams: 03/27/19 05:58 03/27/19 05:55 Additional Lab and Data: UA: positive for pyuria Microbiology and Other Data: Microbiology 03/26/19 14:30 Urine Culture - Preliminary Urine Escherichia Coli 03/26/19 14:21 Aerobic Blood Culture - Preliminary Blood Venous No Growth Day 1 Anaerobic Blood Culture - Preliminary No Growth Day 1 03/26/19 13:18 Aerobic Blood Culture - Preliminary Blood Venous No Growth Day 1 Anaerobic Blood Culture - Preliminary No Growth Day 1 Assess/Plan/Problems-Billing 58W with h/o locally advanced endometrial cancer s/p hysterectomy c/b PE, put on Lovenox but 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 Found with UTI. Thought likely that symptoms from UTI but will explore for possibility of stroke. 1. Worsening dysarthria- most likely due to recrudescence of previous neurological symptoms in the setting of UTI. Clinically improving after antibiotic therapy but still not completely back to baseline. We cannot entirely exclude a new area of infarction especially since she was slightly hypotensive yesterday. Recommendations: - Ordered MRI brain without contrast. If negative, continue antibiotic therapy for UTI and she may benefit from STR. If MRI positive for new stroke (less likely), then we need to consider changing the anticoagulation therapy. Hematology consultation will be warranted at that time given her complicated history. - Vitamin B12 level (add on order) 2. UTI- on Rocephin I will sign out to Dr. Jarrett who will be covering the service this weekend. If the MRI is negative, there will be no further neurological work-up needed and neurology will sign off. - Patient Problems (1) UTI (urinary tract infection) Comment: Ecoli - sensitivities pending - cont CTX (03/26 - ) (2) HIT (heparin-induced thrombocytopenia) Comment: - cont dabigatran (3) Arterial ischemic stroke, MCA (middle cerebral artery), right, chronic Comment: from HIT. On AC. Now presenting with delayed speech, possibly slurred. Could be recrudenscence of prior CVA symptoms in setting of infection with low BP. - appreciate neuro recs - pending Brain MRI - treat UTI as above
[2019-03-27] MEDS ORDERED: NS 0.9% 1000 ML** 1,000 ML IV ONE (16:36)
[2019-03-28] MEDS: CMCS: Dabigatran CAP(NF) 150 MG CAP PO SCH ×3 (03:41→21:54)
[2019-03-28] MEDS: Gabapentin CAP(*) 100 MG PO SCH ×4 (03:42→21:54)
[2019-03-28 09:19] LABS: BUN/Creatinine Ratio 21.7 (8-20); Calcium 8.4 mg/dL (8.6-10.3); EGFR African American 123.4 (>60); Potassium 3.8 mmol/L (3.5-5.0)
[2019-03-28 09:23] LABS: Hematocrit 30 % (35-47); Hemoglobin 9.9 g/dL (12.0-16.0); Mean Corpuscular HGB Conc 33 g/dL (31-36); Mean Corpuscular Hemoglobin 30 pg (27-31); Mean Corpuscular Volume 92 fL (80-97); Mean Platelet Volume 6.5 fL (7.4-10.4); Platelet Count 274 10^3/uL (150-450); Red Blood Count 3.26 10^6 /uL (3.70-4.87); Red Cell Distribution Width 15 % (10.5-15); White Blood Count 3.8 10^3/uL (3.5-10.8)
[2019-03-28] MEDS: fentaNYL Patch Check Q Shift 1 NOTE FOLLOW UP SCH ×2 (09:39→18:57)
[2019-03-28] MEDS: Atorvastatin* 40 MG TAB PO SCH (09:40)
[2019-03-28] MEDS: Amphetamine MIXED SALT TAB* 10 MG TAB PO SCH ×2 (09:40→19:08)
[2019-03-28 10:07] LABS: ABS Eosinophils 0.2 10^3/ul (0-0.6); ABS Lymphocytes 0.4 10^3/ul (1.0-4.8); ABS Monocytes 0.4 10^3/ul (0-0.8); ABS Neutrophils 2.8 10^3/ul (1.5-7.7); Eosinophil % 3.9 %; Lymphocyte % 11.4 %; Nucleated Red Blood Cells % 0.1
--- NOTE | 2019-03-28 14:13 | PN ---
Subjective Date of Service: 03/28/19 Interval History: 3 children at bedside report that pt is much more engaged today - very near baseline. E. coli sensitive to cephalosporins - will switch to PO and plan for DC tomorrow. Pain well controlled. No further fevers. MRI without e/o acute stroke. Objective Active Medications: Acetaminophen (Tylenol Tab*) 650 mg PO Q4HR PRN PRN Reason: FEVER/PAIN Last Admin: 03/27/19 19:51 Dose: 650 mg Amphetamine/Dextroamphetamine (Adderall Tab*) 10 mg PO 0800,1800 [facility] Last Admin: 03/28/19 09:40 Dose: 10 mg Atorvastatin Calcium (Lipitor*) 40 mg PO DAILY [facility] Last Admin: 03/28/19 09:40 Dose: 40 mg Bisacodyl (Dulcolax Supp*) 10 mg SD DAILY PRN PRN Reason: CONSTIPATION Cefdinir (Cefdinir Cap*) 300 mg PO BID [facility] Dabigatran (Pradaxa Cap(Nf)) 150 mg PO BID [facility] Last Admin: 03/28/19 09:40 Dose: 150 mg Fentanyl (Duragesic Patch 12 Mcg/Hr *) 12 mcg TRANSDERM Q72H [facility] Last Admin: 03/26/19 22:21 Dose: Not Given Gabapentin (Neurontin Cap(*)) 200 mg PO TID [facility] Last Admin: 03/28/19 09:40 Dose: 200 mg Morphine Sulfate (Morphine Oral Concentrate*) 5 mg PO Q6H PRN PRN Reason: SEVERE PAIN Last Admin: 03/27/19 14:09 Dose: 5 mg Ondansetron HCl (Zofran Tab*) 4 mg PO Q6H PRN PRN Reason: NAUSEA Pharmacy Profile Note (Fentanyl Patch Check Q Shift) 1 note FOLLOW UP 0700, 1900 [facility] Last Admin: 03/28/19 09:39 Dose: 1 note Vital Signs - 8 hr 03/28/19 03/28/19 07:47 09:40 Temperature 97.4 F Pulse Rate 92 Respiratory 18 18 Rate Blood Pressure 111/62 (mmHg) O2 Sat by Pulse 97 Oximetry Oxygen Devices in Use Now: None Result Diagrams: 03/28/19 08:19 03/28/19 08:18 Additional Lab and Data: UA: positive for pyuria Microbiology and Other Data: Microbiology 03/26/19 14:30 Urine Culture - Preliminary Urine Escherichia Coli 03/26/19 14:21 Aerobic Blood Culture - Preliminary Blood Venous No Growth Day 1 Anaerobic Blood Culture - Preliminary No Growth Day 1 03/26/19 13:18 Aerobic Blood Culture - Preliminary Blood Venous No Growth Day 1 Anaerobic Blood Culture - Preliminary No Growth Day 1 Assess/Plan/Problems-Billing 58W with h/o locally advanced endometrial cancer s/p hysterectomy c/b PE, put on Lovenox but 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 Found with UTI. Thought likely that symptoms from UTI. MRI not concerning for acute stroke. Pt improved with abx along. - Patient Problems (1) UTI (urinary tract infection) Comment: Ecoli sensitive to cephalosporins. - cont CTX (5/2 - 5/3) switch to cefdinir (/ - ) (2) HIT (heparin-induced thrombocytopenia) Comment: - cont dabigatran (3) Arterial ischemic stroke, MCA (middle cerebral artery), right, chronic Comment: from HIT. On AC. Now presenting with delayed speech, possibly slurred. Could be recrudenscence of prior CVA symptoms in setting of infection with low BP. Brain MRI without acute findings. Status and Disposition: Will explore possibility of returning to rehab tomorrow.
[2019-03-28] MEDS: Acetaminophen TAB* 325 MG PO PRN ×2 (15:43→20:30)
[2019-03-28] MEDS: Cefdinir cap* 300 MG CAP PO SCH (21:54)
--- NOTE | 2019-03-28 22:22 | DS ---
CC: Dr. James Linn; Dr. Celine Zuñiga DISCHARGE SUMMARY: DATE OF ADMISSION: 03/26/19 DATE OF DISCHARGE: 03/29/19 PRIMARY CARE PHYSICIAN: Dr. James Linn. CONSULTS: Neurology, Dr. Celine Zuñiga. PRIMARY DIAGNOSIS: Urinary tract infection. SECONDARY DIAGNOSES: 1. History of middle cerebral artery stroke. 2. Heparin-induced thrombocytopenia. MEDICATIONS ON DISCHARGE: 1. Dabigatran 150 mg twice a day. 2. Cefdinir 300 mg twice a day for 4 more days. 3. Gabapentin 200 mg 3 times a day. 4. Fentanyl patch 12 mcg per hour. 5. Atorvastatin 40 mg daily. 6. Adderall 10 mg twice a day. 7. Bisacodyl suppository 10 mg per rectum daily as needed for constipation. 8. MiraLAX 17 g daily as needed for constipation. 9. Ondansetron 4 mg orally every 6 hours as needed for nausea. 12. Acetaminophen 1g q8h prn pain HISTORY OF PRESENT ILLNESS: Ms. Gardner is a 58-year-old woman with a history of endometrial cancer s/p hysterectomy, complicated by PE, placed on Lovenox, complicated by heparin- induced thrombocytopenia, which resulted in right MCA stroke with residual left- sided weakness, also LUE thrombus now s/p amputation of L hand, who is presenting from [facility] with slurred speech and delayed mentation beyond her baseline. Her daughter reports she is generally a faster talker and alert and conversant, and she was talking with her last night and she was at her baseline. However, at approximately 10 a.m. on the morning of presentation, the patient was noted to have difficulty working out with her rehab team. She had difficulty standing. The patient's daughter reports that she had been feeling generally fatigued and with low energy and drowsy and they thought she might have been slurring her words. The daughter reports that she had similar symptoms in the past and her Adderall dose was withheld at rehab for a couple days; however, at that time the patient ended up with predominant symptom of sleeping, whereas today the patient has not expressed the need to take a nap or go to sleep. The patient denied fevers, coughs, focal weakness or numbness. HOSPITAL COURSE: In the emergency room the patient had a head CT that was without acute intracranial abnormality or hemorrhage. Neurology was consulted and recommended a brain MRI. The patient's urinalysis had resulted positive for UTI and she was started on ceftriaxone. MRI was performed the next day and was without acute findings. The patient's mental status and alertness began to improve on ceftriaxone intervention as well as IV fluids, with improvement in blood pressure. Neurology suspected that the patient's presentation was a mix of metabolic encephalopathy from infection as well as recrudescence of previous neuro symptoms in the setting of lower blood pressure from infection, and they recommended continuing the patient on anticoagulation as before with treatment of infection. The patient also worked with Physical Therapy during this admission, who recommended continued skilled physical therapy on discharge. The patient's urine culture resulted E. coli resistant to ampicillin, but sensitive to other tested antibiotics. So, she was switched from ceftriaxone after 2 days to cefdinir before discharge and tolerated this oral therapy well. PERTINENT DIAGNOSTIC STUDIES/LAB DATA: Labs reviewed and significant for a normocytic anemia at baseline 9.9. Creatinine 0.6. Urine culture with E. coli resistant to ampicillin, as above. Brain CT with no acute intracranial pathology and remote right MCA infarct. Brain MRI on 03/27/19 was markedly limited due to poor tolerance for MRI exam and motion artifact, but no true focus of restricted diffusion evident to indicate acute or subacute ischemia. Chronic right MCA infarct. DISCHARGE PLAN: The patient will return to [facility] for ongoing subacute rehab. She is to continue cefdinir, as above, to complete a 7-day course of antibiotics ending on 04/01/19. The patient and family were educated on return precautions that should bring the patient back to the hospital including, but not limited to , return of any focal neuro symptoms, fevers, or low blood pressure. She is to continue her other home medications as before including anticoagulation and she is to follow up with her primary care physician within 1 to 2 weeks of discharge. DISPOSITION: Discharged to [facility]. CONDITION: Improved. TIME SPENT: Approximately 60 minutes were spent on the discharge of this patient, more than half of which was spent in care coordination and at bedside for physical and exam. [id number]/[facility] #: [id number] NIRALI
[2019-03-29] MEDS: fentaNYL Patch Check Q Shift 1 NOTE FOLLOW UP SCH (07:13)
[2019-03-29 08:22] VITALS: BP 144/87
[2019-03-29] MEDS: Amphetamine MIXED SALT TAB* 10 MG TAB PO SCH (08:25)
[2019-03-29] MEDS: Atorvastatin* 40 MG TAB PO SCH (08:25)
[2019-03-29] MEDS: Cefdinir cap* 300 MG CAP PO SCH (08:26)
[2019-03-29] MEDS: CMCS: Dabigatran CAP(NF) 150 MG CAP PO SCH (08:26)
[2019-03-29] MEDS: Acetaminophen TAB* 325 MG PO PRN (08:26)
[2019-03-29] MEDS: Gabapentin CAP(*) 100 MG PO SCH (08:26)
== END 2019-03-29 11:15 | DRG 463 ==
LOC: ED 12:42 → MED 15:26
PROVIDERS: ADMIT Internal Medicine; ATTEND Internal Medicine
DX: N39.0 Urinary tract infection, site not specified (principal); G93.41 Metabolic encephalopathy; I69.354 Hemiplegia and hemiparesis following cerebral infarction affecting left non-dominant side; I95.9 Hypotension, unspecified; D75.82 Heparin induced thrombocytopenia (HIT); B96.20 Unspecified Escherichia coli [E. coli] as the cause of diseases classified elsewhere; F98.8 Other specified behavioral and emotional disorders with onset usually occurring in childhood and adolescence; Z85.89 Personal history of malignant neoplasm of other organs and systems; Z86.711 Personal history of pulmonary embolism; Z86.718 Personal history of other venous thrombosis and embolism; Z89.112 Acquired absence of left hand; Z79.899 Other long term (current) drug therapy; Z88.8 Allergy status to other drugs, medicaments and biological substances; I69.322 Dysarthria following cerebral infarction; Z79.01 Long term (current) use of anticoagulants; Z79.1 Long term (current) use of non-steroidal anti-inflammatories (NSAID)
CPT/HCPCS: 36415; 70450; 70551; 71045; 80048; 80053; 80061; 81003; 81015; 82607; 83605; 83735; 84484; 85025; 85610; 85730; 86850; 86900; 86901; 87040; 87077; 87086; 87186; 93005; 99284; A9270-GY; G8987-GO-CM; G8988-GO-CL; J0696

== ENCOUNTER 2020-01-31 14:16 | Inpatient (IN) | payer BC ==
[2020-01-31] MEDS ORDERED: NS 0.9% 1000 ML** 1,000 ML IV ONE (14:40)
--- NOTE | 2020-01-31 14:43 | ED ---
Abdominal Pain/Female - HPI Summary HPI Summary: This pt is a 59 Y/O F presenting [place] [facility] with a CC of diffuse abdominal pain that is rated a 6/10 in severity and radiates to her back. She states that she had an infection last weekend and was admitted [place] [facility] [place] cancer and complications that led to sepsis. Per her nurse the pt has been bleeding rectally since 01/28/2020 with associated diarrhea. Her symptoms increased today at 0300 when she had increased pain and began bleeding more. Currently she denies any N/V, CP, SOB, headaches, fevers, and chills. She has no aggravating or alleviating factors. She has a PMHx of uterine cancer, previous stroke that causes her to be tachycardic around 104 BPM, and a L hand amputation. - History of Current Complaint Chief Complaint: EDAbdPain Stated Complaint: GENERAL ILLNESS/BLOOD IN STOOL Time Seen by Provider: 01/31/20 14:26 Hx Obtained From: Patient, Family/Pan Cleaner - Son's girlfriend Onset/Duration: Sudden Onset, Lasting Days - 4, Still Present Timing: Constant Severity Initially: Mild Severity Currently: Moderate Pain Intensity: 6 Pain Scale Used: 0-10 Numeric Location: Diffuse Radiates: Yes Radiates to: Back Aggravating Factor(s): Nothing Alleviating Factor(s): Nothing Associated Signs and Symptoms: Positive: Negative - SOB, headaches, and chills, Blood in Stool, Diarrhea. Negative: Diaphoresis, Fever, Chest Pain, Nausea, Vomiting Allergies/Adverse Reactions: Allergies Allergy/AdvReac Type Severity Reaction Status Date / Time heparin Allergy Intermediate See Comment Verified 01/31/20 14:25 Home Medications: Home Medications Acetaminophen [Tylenol] 650 mg PO Q4HR PRN 02/16/19 [History Confirmed 03/26/19] Atorvastatin* [Lipitor 40 MG*] 40 mg PO DAILY 02/16/19 [History Confirmed ] Dextroamphetamine/Amphetamine [Adderall 20 mg Tablet] 10 mg PO BID 02/16/19 [ History Confirmed 03/26/19] Gabapentin CAP(*) [Neurontin 100 mg CAP(*)] 200 mg PO TID 02/16/19 [History Confirmed 03/26/19] Ondansetron TAB* [Zofran 4 MG Tab*] 4 mg PO Q6H PRN 02/16/19 [History Confirmed 03/26/19] fentaNYL PATCH 12 MCG/HR * [Duragesic Patch 12 Mcg/Hr *] 12 mcg TRANSDERM Q72H 02/16/19 [History Confirmed 03/26/19] Bisacodyl 10 mg SUPP [Dulcolax Supp*] 10 mg [place] DAILY PRN 03/26/19 [History Confirmed 03/26/19] Dabigatran CAP(NF) [Pradaxa CAP(NF)] 150 mg PO BID 03/26/19 [History Confirmed 03/26/19] Cefdinir cap* [Cefdinir 300 MG cap (NF)] 300 mg PO BID cap 03/28/19 [Rx] PMH/Surg Hx/FS Hx/Imm Hx Previously Healthy: Yes Endocrine/Hematology History: Denies: Hx Diabetes Cardiovascular History: Reports: Hx Deep Vein Thrombosis, Hx Myocardial Infarction Denies: Hx Hypertension, Hx Pacemaker/ICD Comment Only: Other Cardiovascular Problems/Disorders - PE, Thrombosis History: Denies: Hx Dialysis, Hx Renal Disease Comment Only: Other Problems/Disorders - intermittent incontinence Sensory History: Denies: Hx Contacts or Glasses, Hx Hearing Aid Opthamlomology History: Denies: Hx Contacts or Glasses Neurological History: Reports: Hx Spinal Cord Injury, Other Neuro Impairments/ Disorders - Stroke Psychiatric History: Reports: Other Psychiatric Issues/Disorders - ADD Denies: Hx Panic Disorder - Cancer History Cancer Type, Location and Year: uterine/endometrial 09/08/18 Hx Chemotherapy: Yes Hx Radiation Therapy: Yes - Surgical History Surgical History: Yes Surgery Procedure, Year, and Place: 1985; Gallbladder 2014; LEFT HAND/ WRIST AMPUTAION; TUBAL LIGATION 1985; CATHERIZATION TO BREAK UP CLOT FOR STROKE , C[place] 01/2019- NO STENTS OR COILS PLACED - Immunization History Immunizations Up to Date: Yes Infectious Disease History: No Infectious Disease History: Reports: Hx of Known/Suspected MRSA - in wound , negative nares 02/20/19 Denies: Traveled Outside the [place] in Last 30 Days - Family History Known Family History: Positive: Other - CA Family History: Uterine CA - Social History Occupation: Disabled Lives: With Family Alcohol Use: None Hx Substance Use: No Substance Use Type: Reports: None Hx Tobacco Use: No Smoking Status (MU): Never Smoked Tobacco Review of Systems Negative: Fever, Chills Negative: Chest Pain Negative: Shortness Of Breath Positive: Abdominal Pain - radiates to her back , Diarrhea, Other - blood in stool . Negative: Vomiting, Nausea Negative: Headache All Other Systems Reviewed And Are Negative: Yes Physical Exam - Summary Physical Exam Summary: VITAL SIGNS: Reviewed. GENERAL: Patient is a weak appearing female who is lying comfortable in the stretcher. Patient is not in any acute respiratory distress. HEAD AND FACE: No signs of trauma. No ecchymosis, hematomas or skull depressions. No sinus tenderness. EYES: PERRLA, EOMI x 2, No injected conjunctiva, no nystagmus. EARS: Hearing grossly intact. Ear canals and tympanic membranes are within normal limits. MOUTH: Oropharynx within normal limits. NECK: Supple, trachea is midline, no adenopathy, no JVD, no carotid bruit, no c- spine tenderness, neck with full ROM. CHEST: Symmetric, no tenderness at palpation. LUNGS: Clear to auscultation bilaterally. No wheezing or crackles. CVS: Pt is tachycardic with a normal rhythm, S1 and S2 present, no murmurs or gallops appreciated. ABDOMEN: Soft with suprapubic tenderness. No signs of distention. No rebound, no guarding, and no masses palpated. Bowel sounds are normal. EXTREMITIES: FROM in all major joints, no edema, no cyanosis or clubbing. NEURO: Alert and oriented x 3. No acute neurological deficits. Speech is normal and follows commands. SKIN: Pale, dry and warm. KING: Bright red blood Triage Information Reviewed: Yes Vital Signs On Initial Exam: Initial Vitals Temp Pulse Resp BP Pulse Ox 97.9 F 149 20 82/66 97 01/31/20 14:19 01/31/20 14:19 01/31/20 14:19 01/31/20 14:19 01/31/20 14:19 Vital Signs Reviewed: Yes Diagnostics - Vital Signs Vital Signs Temp Pulse Resp BP Pulse Ox 01/31/20 14:32 13 88/76 01/31/20 14:29 13 01/31/20 14:19 97.9 F 149 20 82/66 97 - Laboratory Result Diagrams: 01/31/20 14:35 01/31/20 14:35 Lab Statement: Any lab studies that have been ordered have been reviewed, and results considered in the medical decision making process. - CT CT A/P CT Interpretation Completed By: Radiologist Summary of CT Findings: 1. NO CONTRAST IS SEEN COLLECTING IN THE ANAL CANAL ( RED BLOOD CELL SCANS ARE MORE SENSITIVE FOR SLOW GI BLEEDS). 2. UNCHANGED UTERINE MASS. 3. DIVERTICULOSIS WITH NO SECONDARY SIGNS OF INFLAMMATION. 4. UNCHANGED COMPRESSION FRACTURES OF THE THORACOLUMBAR SPINE. 5. STATUS POST CHOLECYSTECTOMY WITH UNCHANGED MILD INTRA AND EXTRAHEPATIC BILIARY DUCTAL DILATATION. 6. IVC FILTER IN PLACE. ED physician has reviewed this report. Abdominal Pain Fem Course/Dx - Course Course Of Treatment: This pt is a 59 Y/O F presenting [place] [facility] with a CC of diffuse abdominal pain that is rated a 6/10 in severity and radiates to her back. She states that she had an infection last weekend and was admitted to [facility] [place] cancer and complications that led to sepsis. Per her nurse the pt has been bleeding rectally since 01/28/2020 with associated diarrhea. Her symptoms increased today at 0300 when she had increased pain and began bleeding more. She meets Sepsis criteria due to a non-specific infection. The pt will b e revaluated after further tests are gathered. Her PE found she is weak appearing, tachycardic, Her abdomen is soft with suprapubic tenderness, she has bright red blood in her stool, and her skin is pale. She has abnormalities in Creatinine of .31, BUN/Creatinine ratio of 48.4, Magnesium of 1.0, AST of 5, ALT of 3, C-Reactive protein of 97.00, Total protein of 3.8, Albumin of 1.5, Albumin/Globulin Ratio of .7, and a Lipase < 10. She has a RBC of 2.13, Hgb 6.5 , Hct, and absolute neuts of 9.0. She has critical values of Potassium of 2.6, Carbon Dioxide of 14, and calcium of 5.0. Dr. Rockwell, pulmonary, and Dr. Lynn , oncology, were both consulted at 1500 and recommended countering the pt's Pradaxa with Kcentra. CT A/P: 1. NO CONTRAST IS SEEN COLLECTING IN THE ANAL CANAL (RED BLOOD CELL SCANS ARE MORE SENSITIVE FOR SLOW GI BLEEDS). 2. UNCHANGED UTERINE MASS. 3. DIVERTICULOSIS WITH NO SECONDARY SIGNS OF INFLAMMATION. 4. UNCHANGED COMPRESSION FRACTURES OF THE THORACOLUMBAR SPINE. 5. STATUS POST CHOLECYSTECTOMY WITH UNCHANGED MILD INTRA AND EXTRAHEPATIC BILIARY DUCTAL DILATATION. 6. IVC FILTER IN PLACE. Pt has no indication of sepsis. She will be admitted to [facility] [place] care due to symptomatic anemia and rectal bleeding. - Diagnoses Provider Diagnoses: Symptomatic anemia, Rectal bleeding - Provider Notifications Discussed Care Of Patient With: Marilu Rockwell Time Discussed With Above Provider: 15:37 Instructed by Provider To: Admit As Inpatient Admit/Transition Orders Completed By ED Provider: Yes - Critical Care Time Critical Care Time: 75-104 min Discharge ED - Sign-Out/Discharge Documenting (check all that apply): Patient Departure - admitted - Discharge Plan Condition: Good Disposition: ADMITTED TO [facility] - Billing Disposition and Condition Condition: GOOD Disposition: Admitted to [facility] - Attestation Statements Document Initiated by Berhane: Yes Documenting Scribe: Paulie Bernardo Provider For Whom Melanieibe is Documenting (Include Credential): Sukhdev Torrez MD Scribe Attestation: IPaulie, scribed for Sukhdev Torrez MD on 01/31/20 at 1735. Scribe Documentation Reviewed: Yes Provider Attestation: The documentation as recorded by the Paulie dunne accurately reflects the service I personally performed and the decisions made by , Sukhdev Torrez MD Status of Scribe Document: Viewed Consult Consult: Dr. Rockwell, Pulmonary, and Dr. Lynn, oncology, were both consulted at 1500 and recommended countering the pt's Pradaxa with Kcentra.
[2020-01-31 14:50] LABS: ABS Lymphocytes 1.2 10^3/ul (1.0-4.8); ABS Monocytes 0.6 10^3/ul (0-0.8); Eosinophil % 0.1 %; Hematocrit 20 % (35-47); Hemoglobin 6.5 g/dL (12.0-16.0); Lymphocyte % 11.3 %; Mean Corpuscular HGB Conc 33 g/dL (31-36); Mean Corpuscular Hemoglobin 30 pg (27-31); Mean Corpuscular Volume 92 fL (80-97); Mean Platelet Volume 6.6 fL (7.4-10.4); Platelet Count 160 10^3/uL (150-450); Red Blood Count 2.13 10^6 /uL (3.70-4.87); Red Cell Distribution Width 17 % (10-15); White Blood Count 10.8 10^3/uL (3.5-10.8)
[2020-01-31 15:07] LABS: ALT 3 U/L (7-52); AST 5 U/L (13-39); Albumin 1.5 g/dL (3.2-5.2); Albumin/Globulin Ratio 0.7 (1-3); Alkaline Phosphatase 71 U/L (34-104); BUN/Creatinine Ratio 48.4 (8-20); Blood Urea Nitrogen 15 mg/dL (6-24); EGFR African American 263.5 (>60); EGFR Non-African American 217.8 (>60); Globulin 2.3 g/dL (2-4); Glucose 74 mg/dL (70-100); Sodium 141 mmol/L (135-145); Total Protein 3.8 g/dL (6.4-8.9)
[2020-01-31 15:16] LABS: Activated Partial Thrombo Time 52.4 seconds (26.0-38.0); Anion Gap 8 mmol/L (2-11); CO2 Carbon Dioxide 14 mmol/L (22-32); Chloride 119 mmol/L (101-111); INR 1.85 (0.82-1.09); Potassium 2.6 mmol/L (3.5-5.0)
[2020-01-31] MEDS ORDERED: Iohexol 300* (CONTRAST) 10 ML SDV IV ONE (15:32)
[2020-01-31] MEDS ORDERED: IDARUCIZUMAB* 2.5 GM/50 ML VIAL IV ONE (16:00)
[2020-01-31] MEDS ORDERED: Calcium Gluconate INJ* 2 GM in NS 0.9% 100 ML* 100 ML IVPB ONE (16:16)
[2020-01-31] MEDS ORDERED: Magnesium Sulf 4 GM/100 ML IV* 4,000 MG/100 ML BAG IVPB ONE (16:17)
[2020-01-31] MEDS ORDERED: KCL 20 MEQ/100 ML IVPREMIX* 20 MEQ/100 ML BAG IV ONE (16:18)
[2020-01-31] MEDS ORDERED: Ondansetron INJ* 2 MG/ML VIAL IV PRN (16:20)
[2020-01-31] MEDS ORDERED: Lactated Ringers 1000 ML Bag* 1,000 ML IV ONE (16:21)
[2020-01-31 16:51] LABS: Urine Appearance Clear; Urine Bilirubin Negative (Negative); Urine Blood 1+ (Negative); Urine Color Yellow; Urine Glucose Negative (Negative); Urine Ketones 1+ (Negative); Urine Nitrite Negative (Negative); Urine Protein Negative (Negative); Urine Specific Gravity 1.048 (1.010-1.030); Urine Urobilinogen Negative (Negative)
[2020-01-31 17:00] LABS: Urine Bacteria Absent (Absent); Urine Red Blood Cell Trace(0-2/hpf) (Absent); Urine Squamous Epithelial Cell Present (Absent); Urine White Blood Cell Trace(0-5/hpf) (Absent)
--- NOTE | 2020-01-31 18:23 | CONS ---
GASTROENTEROLOGY CONSULT: DATE: 01/31/20 CONSULTING PHYSICIAN: Sukhdev Torrez, Emergency Room; Corby García REASON FOR CONSULTATION: Rectal bleeding for 3 days and hypotension in a woman with diarrhea for a month or two in the setting of unresectable uterine cancer with complex thromboembolic phenomenon, on chronic Pradaxa. HISTORY: This 59-year-old woman who has locally advanced uterine cancer finished multiple rounds of chemotherapy in the fall (see Dr. 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 Recently, she has been suffering from diarrhea interspersed with days where there were no stools. Some blood began to be noticed in the stool about a week ago. It was at times hard to discern whether it might have been just increased vaginal bleeding as she has a chronic history of that. On 01/21/20, she was admitted to [facility] (where she lives) with diarrhea and she was given an antibiotic for a urinary infection. C. diff was a concern, though the family is not aware whether testing was actually completed. She received some transfusions. She went home on 01/24/20. Her son says she had not been at [facility] earlier in the year. Three days later, the questionable rectal bleeding was first noted by female staff in addition to the baseline vaginal bleeding. She had no bleeding on Saturday, and then towards the end of the day, Saturday, there was more profuse bleeding seen. There was no syncope She has never had gastrointestinal bleeding in the past. She has never had a colonoscopy. She has a history of some sporadic heartburn through the years, taking some Tums. There has been some more of that recently. She has not been on an acid larry. She has never had an upper endoscopy. PAST MEDICAL HISTORY: 1. Uterine cancer - on a couple of occasions, hysterectomy was planned and came close to taking place, but she had multiple complications from thrombosis and that has not taken place. 2. Cholecystectomy, 2016. 3. Thromboembolic phenomenon - in the legs bilaterally later pulminary emboli and she had a very complex course spending 5 to 6 months at [facility] in 2017. She has an IVC in place. 4. Heparin-induced thrombocytopenia. 5. Status post left middle cerebral artery CVA - related to Lovenox. 6. Left arm thrombosis and amputation, February 2019. 7. Diverticulosis - noted on CT scans. FAMILY HISTORY: No history of colon cancer or uterine cancer in any other family member. Her of pancreatic cancer, but there are no cancers in her patt. SOCIAL HISTORY: She lives in [place]. 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 Her son , Juan, is with her today. Her parents still live in [facility]. REVIEW OF SYSTEMS: No history of seizure, blood clots prior to 2016, gastrointestinal problems prior to 2017 other than the gallbladder surgery. No history of TB, chronic diarrhea. No history of skin disorder. Family is not recalling antibiotics from March 2019 through to past 6 weeks ago. EXAM: She is a chronically ill-appearing woman, pale, with asymmetric facial expression, in no overt distress at this time. She has no icterus. She has no adenopathy. Breath sounds are symmetric and intact. Heart sounds are regular. Her pulse which had been 142 on admission has gone down to 119. Blood pressure that was 82/66 has improved to 120/86. Her abdomen is symmetric, mildly rounded. There is a palpable mass in the lower midline compatible with an enlarged uterus. Perianal inspection shows minimal bloody mucus at the anal verge. Digital rectal shows maroon stool and no overt mass. Exam is limited and assisted by Dr. Rockwell. There was no bleed seen at the vaginal opening. Extremities: Symmetric 1+ ankle edema. Pulses are intact in the legs. There is a left hand amputation. LABS: Hemoglobin 6.5, hematocrit 20, platelets 160. INR 1.85 (on Pradaxa). Sodium 141, potassium 2.6. LFTs are abnormal with bilirubin 0.2, ALT 3, alkaline phosphatase 71, albumin 1.5. magnesium 1.0. IMPRESSION: This 59-year-old woman with locally advanced uterine cancer apparently progressing despite chemo has had ongoing bleeding from the uterus which has been requiring transfusions 5 in 2019 and also last week. Now in the last 72 hours apparently she has gastrointestinal bleeding. This is in the setting of chronic Pradaxa. She also has nutritional deficiencies and electrolyte disarray. With the dark red stool and BUN of 13, the gastrointestinal bleeding is most likely coming from the upper two-thirds of the colon most likely from diverticulosis. Most lower gastrointestinal bleeds stop on their own and stopping the Pradaxa for a brief interval will increase the odds of that. Clearly, her thrombophilia is severe and it is a priority to attempt to restart some sort of anticoagulant soon. Colonoscopy is not likely to be therapeutic and pinning down the diagnosis is not likely to benefit the patient either and given the burden of a colonoscopy at this moment am not suggesting it. She had previously decided not to have biopsy of a chest mass (see Dr Loya's note). Clearly, this is a very difficult case and the choices and compromises left be evaluated on an ongoing basis. The history thus far and the appearance of the rectal exam was not suggestive of Clostridium difficile. [id number]/[facility] #: [id number] MTDD
--- NOTE | 2020-01-31 18:39 | HP ---
HISTORY AND PHYSICAL: DATE OF ADMISSION: 01/31/20 PRIMARY CARE PHYSICIAN: Dr. James Linn. ONCOLOGIST: Dr. Corby García. HEALTHCARE PROXY: Her oldest children, Nathaly and Juan. CODE STATUS: Full. REASON FOR ADMISSION: GI bleed. CHIEF COMPLAINT: GI bleed, abdominal pain. HISTORY OF PRESENT ILLNESS: The patient is a 59-year-old female with history of endometrial cancer, status post hysterectomy in the past, with recurrence; history of heparin-induced thrombocytopenia, complicated by right MCA stroke with residual left-sided weakness, in end of 2017 had been in [place], hospitalized for 4 to 6 months, then she was subsequently discharged to [place]. The patient also was treated with chemotherapy. The patient is being considered for palliative radiation. The patient has been having complicated course recently. She was hospitalized at [facility] in [place] for 4 days , was discharged on 01/24/20. She was hospitalized for abdominal pain, GI bleed , diarrhea going on for 3 weeks. C. diff was sent as per [id number], she is unaware of the result of that. She also is the main provider of history at this time. As per [id number], the patient was treated with antibiotics. She also required blood transfusion for what is presumed to be secondary to blood loss from uterine cancer and bleeding. She has been having uterine bleeding intermittently even from the discharge. As per [id number], she was on commode this morning, [id number] noted blood emanating from the anus , and there was blood in the bedpan as well. The patient was brought into the ED for further evaluation. The patient was noted to have hemoglobin of 6.5, last known baseline was 9.9 from March of 2019 when she was hospitalized with symptoms suggestive of possible CVA. The patient was also noted to have potassium of 2.6 with bicarb of 14, calcium of 5, and albumin of 1.5. Her lipase was less than 10. CRP was elevated at 97. BNP was within normal limits. The patient was hypotensive and tachycardic on arrival in the ED. She has received 2 units of IV fluids. Two units of PRBCs were also ordered. 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 The patient was given reversal agent, Praxbind, in the ED. The patient is also complaining of right upper quadrant abdominal pain. The patient reported feeling slightly better after the fluid she received in the ED. Electrolytes were also corrected. The patient had CT scan of the abdomen done which was reviewed and discussed with the patient and her family. The patient noted to have diverticulosis with no secondary signs of inflammation. She is status post cholecystectomy with some mild intra and extrahepatic biliary ductal dilatation. She has IVC filter placed. She has necrotic appearing uterine mass known from before. Mild lower lobe subsegmental atelectasis noted. PAST MEDICAL HISTORY: 1. Endometrial cancer, status post hysterectomy, was diagnosed in 2018. She also completed chemotherapy recently and is being considered for palliative radiation. 2. History of pulmonary embolism and DVT also in September of 2018, initially treated with Lovenox, but was complicated by HIT, also resulting in MCA stroke leaving her with left hemiparesis. She also had stenosis of the left upper extremity resulting in necrosis of the left hand that she had amputation. PAST SURGICAL HISTORY: 1. Hysterectomy. 2. Left wrist disarticulation. 3. Cholecystectomy. MEDICATIONS AT HOME: 1. Fentanyl patch. 2. Morphine. 3. Zofran. 4. Gabapentin. 5. Tylenol. 6. Adderall. 7. Dabigatran 150 mg p.o. b.i.d. 8. Cefdinir. 9. Bisacodyl. 10. Atorvastatin. ALLERGIES: HEPARIN. FAMILY HISTORY: No history of malignancy in the family. SOCIAL HISTORY: Denies history of alcohol or drug abuse. REVIEW OF SYSTEMS: All 10 systems reviewed and as per HPI. PHYSICAL EXAMINATION GENERAL: The patient is in bed, in no apparent distress. VITAL SIGNS: Temperature 97.3, pulse 123 beats per minute, respiratory rate 14 per minute, O2 sat 99% on room air, blood pressure 116/85. HEENT: Pupils equal, reactive to light. Mucous membranes moist. LUNGS: Good air entry bilaterally. No crackles or wheezes. CARDIOVASCULAR: S1, S2 present. Tachycardic. ABDOMEN: Mild tenderness in right upper quadrant. Uterine mass hard, rigid, palpable in the lower abdomen. No rebound tenderness noted. Bowel sounds present. NEURO: The patient with residual left hemiparesis, mild facial droop from prior CVA. SKIN: No rash or bruises. Not cold or clammy. DIAGNOSTIC STUDIES/LAB DATA: WBC count 10.8, hemoglobin 6.5, hematocrit 20, platelet count of 160. Sodium 141, potassium 2.6, chloride 119, bicarb 14, BUN 15, creatinine 0.31, calcium 5, magnesium 1. T bili 0.2, AST 5, ALT 3, alk phos 71. Total protein 3.8, albumin 1.5. CRP 97. BNP 52. Lipase less than 10. Stool guaiac was frankly positive for blood in the rectum. Abdominal CT as described above in HPI. ASSESSMENT AND PLAN: 59-year-old female with uterine cancer, with ongoing bleeding issues recently, status post surgery in the past, also completed chemotherapy, the patient being considered for palliative radiation. The patient was brought in by family for evaluation of gastrointestinal bleed, suspect possibly lower gastrointestinal bleed. 1. Gastrointestinal bleed, likely lower gastrointestinal bleed. The patient does report some dyspepsia symptoms; however, her BUN/creatinine ratio is within normal limits making it more likely to be lower gastrointestinal bleed, suspect diverticular bleed. CT abdomen did show evidence of diverticulosis. No evidence of diverticulitis noted. The patient also on Pradaxa given prior history of deep venous thrombosis/pulmonary embolism. Her hemoglobin is 6.5. She will be receiving 2 units of PRBC transfusion. She also received reversal agent for Pradaxa. The patient was evaluated by GI. No plan for colonoscopy at this time. The patient will be closely monitored in the ICU. She remains tachycardic. Her blood pressure is low, however, is stable with a good MAP at this time. She has received 2 units of IV fluids in the ED. We will repeat CBC q.4 hours. We will contact GI if any acute change in status. Discussed also with Dr. Lynn regarding anticoagulation. If she remains stable in terms of her diverticular bleed with no further bleeding, she will restart her anticoagulation in 3 days. 2. Anemia secondary to acute blood loss. The patient is receiving 2 units of PRBC. We will monitor closely and transfuse as needed. Troponins ordered and pending at this time. No EKG obtained in the ED, we will order EKG. The patient denied any chest pains at this time. 3. Electrolyte abnormalities, likely secondary to poor oral intake. The patient also with diarrhea recently. She was treated with antibiotics recently. The patient with no obvious diarrhea at this time. We will order C. diff. No need for antibiotics at this time as she does not have any evidence of diverticulitis or infection. Monitor urine output closely. The patient had Castillo catheter placed given bedridden status and also for close hemodynamic monitoring. 4. Tachycardia and hypotension secondary to acute gastrointestinal bleed. We will monitor closely post fluid resuscitation and blood transfusion. No need for pressors at this time. 5. Low albumin, likely nutritional and poor oral intake. The patient will be n.p.o. at this time given gastrointestinal bleed. We will start diet in the morning when cleared by GI. 6. History of pulmonary embolism/deep venous thrombosis, heparin-induced thrombocytopenia, and cerebrovascular accident with left hemiparesis. The patient is on Pradaxa, needed to be held secondary to acute gastrointestinal bleed currently after weighing the risks and benefits of the anticoagulation. 7. DVT prophylaxis: SCDs for now. 8. GI prophylaxis ordered. 9. The patient would be full code at this time. Discussed with the patient's son at bedside, the patient's wishes are to remain full code. Family updated on plan of care and prognosis. Discussed case with Dr. Lynn and Dr. Velasquez. TIME SPENT: Total time spent in H and P 40 minutes. [id number]/[facility] #: [id number] [facility] HOSPITALJuan Carlos
[2020-01-31] MEDS: KCL 20 MEQ/100 ML IVPREMIX* 20 MEQ/100 ML BAG IV SCH (19:14)
[2020-01-31] MEDS: Pantoprazole IV* 40 MG IV SCH (19:23)
[2020-01-31 21:08] LABS: Hematocrit 33 % (35-47); Hemoglobin 10.4 g/dL (12.0-16.0); Mean Corpuscular HGB Conc 32 g/dL (31-36); Mean Corpuscular Hemoglobin 30 pg (27-31); Mean Corpuscular Volume 94 fL (80-97); Mean Platelet Volume 6.7 fL (7.4-10.4); Platelet Count 180 10^3/uL (150-450); Red Blood Count 3.44 10^6 /uL (3.70-4.87); Red Cell Distribution Width 16 % (10-15); White Blood Count 14.2 10^3/uL (3.5-10.8)
[2020-01-31 21:18] LABS: Calcium 8.6 mg/dL (8.6-10.3)
[2020-01-31 21:20] LABS: Potassium 5.1 mmol/L (3.5-5.0)
[2020-01-31 21:24] LABS: BUN/Creatinine Ratio 35.2 (8-20); EGFR African American 138.9 (>60); EGFR Non-African American 114.8 (>60)
[2020-01-31 22:48] LABS: Potassium 6.2 mmol/L (3.5-5.0)
[2020-01-31] MEDS ORDERED: Dextrose 50% Syringe 50 ML* 25 GM/50 ML SYRINGE IV PUSH PRN (22:54)
[2020-01-31] MEDS ORDERED: Insulin REGULAR(*) 1 UNITS UNIT IV PUSH ONE (23:00)
[2020-01-31 23:31] LABS: Troponin I 0.01 ng/mL (<0.03)
[2020-01-31 23:42] LABS: Hematocrit 33 % (35-47); Hemoglobin 10.5 g/dL (12.0-16.0); Mean Corpuscular HGB Conc 32 g/dL (31-36); Mean Corpuscular Hemoglobin 30 pg (27-31); Mean Corpuscular Volume 94 fL (80-97); Mean Platelet Volume 7.1 fL (7.4-10.4); Platelet Count 175 10^3/uL (150-450); Red Blood Count 3.51 10^6 /uL (3.70-4.87); Red Cell Distribution Width 17 % (10-15); White Blood Count 14.9 10^3/uL (3.5-10.8)
[2020-01-31 23:52] LABS: Albumin 2.5 g/dL (3.2-5.2); Calcium 7.8 mg/dL (8.6-10.3); Magnesium 2.6 mg/dL (1.9-2.7); Total Bilirubin 0.6 mg/dL (0.2-1.0)
[2020-01-31 23:58] LABS: Albumin/Globulin Ratio 0.8 (1-3); BUN/Creatinine Ratio 33.3 (8-20); EGFR African American 138.9 (>60); EGFR Non-African American 114.8 (>60); Globulin 3.1 g/dL (2-4); Total Protein 5.6 g/dL (6.4-8.9)
[2020-02-01] LABS: Potassium 4.8 mmol/L (3.5-5.0)
[2020-02-01] MEDS: KCL 20 MEQ/100 ML IVPREMIX* 20 MEQ/100 ML BAG IV SCH (00:08)
[2020-02-01 04:24] LABS: Hematocrit 30 % (35-47); Hemoglobin 9.9 g/dL (12.0-16.0); Mean Corpuscular HGB Conc 33 g/dL (31-36); Mean Corpuscular Hemoglobin 30 pg (27-31); Mean Corpuscular Volume 92 fL (80-97); Mean Platelet Volume 6.7 fL (7.4-10.4); Platelet Count 149 10^3/uL (150-450); Red Blood Count 3.28 10^6 /uL (3.70-4.87); Red Cell Distribution Width 16 % (10-15); White Blood Count 12.8 10^3/uL (3.5-10.8)
[2020-02-01 04:41] LABS: BUN/Creatinine Ratio 33.3 (8-20); Blood Urea Nitrogen 18 mg/dL (6-24); CO2 Carbon Dioxide 23 mmol/L (22-32); Chloride 103 mmol/L (101-111); EGFR African American 138.9 (>60); EGFR Non-African American 114.8 (>60); Glucose 92 mg/dL (70-100); Sodium 133 mmol/L (135-145)
[2020-02-01 04:50] LABS: Anion Gap 7 mmol/L (2-11)
[2020-02-01] MEDS: Acetaminophen TAB* 325 MG PO PRN ×2 (07:42→16:01)
[2020-02-01] MEDS: Lactated Ringers 1000 ML Bag* 1,000 ML IV SCH ×2 (09:21→23:20)
--- NOTE | 2020-02-01 09:27 | PN ---
Progress Note - Progress Note Date of Service: 02/01/20 SOAP: Subjective: []Well known to hem/onc due to her complicated thrombotic history and diagnosis of uterine cancer. Presented to the ER following episode of BRBPR, daughter states her brother's girlfriend helps on the weekend and states there was thiago red blood in the toilet. Cynthia has been having diarrhea and her daughter states that she was admitted to [facility] 01/21-01/23. Daughter states she was told her mom was septic and recieved Zosyn and 2 units of blood. This AM nursing noted small amount of blood and brown liquid on chucks. Has abd. pain but no cramping. Chronic back pain. Otherwise feeling OK. Completed 6 cycles of systemic therapy for uterine cancer end of September 2019 with recent local progression, palliative radiation consult pending (currently scheduled for 02/02 @ [id number] Childress). PMH: Depression HTN Hyperlipidemia Uterine cancer, dx. 08/2018, presented with vaginal bleeding - carbo/taxol x1 tolerated very poorly then 12/2018 pelvis RT - May - Sep. Carbo/Taxol with dose reduction d/t cytopenias PE with R sided heart strain 09/2018 tx.'d with IVC filter and Lovenox c/b HIT with large IVC thrombus bilat. - thrombolysis then bivalirudin, fondaparinux c/b R MCA stroke - bivalirudin to coumadin c/b L UE arterial thrombus with necrosis of the Left hand - started on Pradaxa - Argatroban and Left hand amputation 02/24/19 Medications: Acetaminophen (Tylenol Tab*) 650 mg PO Q4H PRN PRN Reason: PAIN - MILD Last Admin: 02/01/20 07:42 Dose: 650 mg Dextrose (D50w Syringe 50 Ml*) 25 gm IV PUSH ONCE PRN PRN Reason: FS < 60 Stop: 02/01/20 22:53 Lactated Ringer's (Lactated Ringers 1000 Ml Bag*) 1,000 mls @ 75 mls/hr IV PER RATE [facility] Last Admin: 02/01/20 09:21 Dose: 75 mls/hr Ondansetron HCl (Zofran Inj*) 4 mg IV Q4H PRN PRN Reason: NAUSEA/VOMITING Pantoprazole Sodium (Protonix Iv*) 40 mg IV Q24H [facility] Last Admin: 01/31/20 19:23 Dose: 40 mg Objective: [] Vital Signs Temp Pulse Resp BP Pulse Ox 98.0 F 107 13 118/80 100 02/01/20 08:00 02/01/20 09:00 02/01/20 09:00 02/01/20 09:00 02/01/20 09:00 Alert and oriented, baseline left sided weakness (hx. R MCA CVA) HRR, S1S2, ST on tele LS clear +BS, abd. soft and mildly tender Laboratory Tests 01/19/20 11:03 Hgb 10.0 L Laboratory Results - last 24 hr 01/31/20 01/31/20 01/31/20 14:35 14:35 14:35 WBC 10.8 RBC 2.13 L Hgb 6.5 L Hct 20 L MCV 92 MCH 30 MCHC 33 RDW 17 H Plt Count 160 MPV 6.6 L Neut % (Auto) 82.7 Lymph % (Auto) 11.3 Hutchinson % (Auto) 5.6 Eos % (Auto) 0.1 Baso % (Auto) 0.3 Absolute Neuts (auto) 9.0 H Absolute Lymphs (auto) 1.2 Absolute Monos (auto) 0.6 Absolute Eos (auto) 0.0 Absolute Basos (auto) 0.0 Absolute Nucleated RBC 0.0 Nucleated RBC % 0.0 INR (Anticoag Therapy) APTT Sodium 141 Potassium 2.6 L* Chloride 119 H Carbon Dioxide 14 L* Anion Gap 8 BUN 15 Creatinine 0.31 L Est GFR ( Amer) 263.5 Est GFR (Non-Af Amer) 217.8 BUN/Creatinine Ratio 48.4 H Glucose 74 Lactic Acid 0.8 Calcium 5.0 L* Magnesium 1.0 L Total Bilirubin 0.20 AST 5 L ALT 3 L Alkaline Phosphatase 71 Troponin I C-Reactive Protein 97.00 H B-Natriuretic Peptide Total Protein 3.8 L Albumin 1.5 L Globulin 2.3 Albumin/Globulin Ratio 0.7 L Lipase < 10 L Urine Color Urine Appearance Urine pH Ur Specific Fonda Urine Protein Urine Ketones Urine Blood Urine Nitrate Urine Bilirubin Urine Urobilinogen Ur Leukocyte Esterase Urine WBC (Auto) Urine RBC (Auto) Ur Squamous Epith Cells Urine Bacteria Urine Glucose Blood Type Antibody Screen Crossmatch 01/31/20 01/31/20 01/31/20 14:35 14:35 14:35 WBC RBC Hgb Hct MCV MCH MCHC RDW Plt Count MPV Neut % (Auto) Lymph % (Auto) Hutchinson % (Auto) Eos % (Auto) Baso % (Auto) Absolute Neuts (auto) Absolute Lymphs (auto) Absolute Monos (auto) Absolute Eos (auto) Absolute Basos (auto) Absolute Nucleated RBC Nucleated RBC % INR (Anticoag Therapy) 1.85 H APTT 52.4 H Sodium Potassium Chloride Carbon Dioxide Anion Gap BUN Creatinine Est GFR ( Amer) Est GFR (Non-Af Amer) BUN/Creatinine Ratio Glucose Lactic Acid Calcium Magnesium Total Bilirubin AST ALT Alkaline Phosphatase Troponin I C-Reactive Protein B-Natriuretic Peptide 52 Total Protein Albumin Globulin Albumin/Globulin Ratio Lipase Urine Color Urine Appearance Urine pH Ur Specific Fonda Urine Protein Urine Ketones Urine Blood Urine Nitrate Urine Bilirubin Urine Urobilinogen Ur Leukocyte Esterase Urine WBC (Auto) Urine RBC (Auto) Ur Squamous Epith Cells Urine Bacteria Urine Glucose Blood Type O Positive Antibody Screen Negative Crossmatch See Detail 01/31/20 01/31/20 01/31/20 16:41 20:58 20:58 WBC 14.2 H RBC 3.44 L Hgb 10.4 L Hct 33 L MCV 94 MCH 30 MCHC 32 RDW 16 H Plt Count 180 MPV 6.7 L Neut % (Auto) Lymph % (Auto) Hutchinson % (Auto) Eos % (Auto) Baso % (Auto) Absolute Neuts (auto) Absolute Lymphs (auto) Absolute Monos (auto) Absolute Eos (auto) Absolute Basos (auto) Absolute Nucleated RBC Nucleated RBC % INR (Anticoag Therapy) APTT Sodium 132 L D Potassium 5.1 H D Chloride 103 Carbon Dioxide 18 L Anion Gap 11 BUN 19 Creatinine 0.54 Est GFR ( Amer) 138.9 Est GFR (Non-Af Amer) 114.8 BUN/Creatinine Ratio 35.2 H Glucose 83 Lactic Acid Calcium 8.6 Magnesium Total Bilirubin AST ALT Alkaline Phosphatase Troponin I 0.00 C-Reactive Protein B-Natriuretic Peptide Total Protein Albumin Globulin Albumin/Globulin Ratio Lipase Urine Color Yellow Urine Appearance Clear Urine pH 5.0 Ur Specific Fonda 1.048 H Urine Protein Negative Urine Ketones 1+ A Urine Blood 1+ A Urine Nitrate Negative Urine Bilirubin Negative Urine Urobilinogen Negative Ur Leukocyte Esterase Negative Urine WBC (Auto) Trace(0-5/hpf) Urine RBC (Auto) Trace(0-2/hpf) Ur Squamous Epith Cells Present A Urine Bacteria Absent Urine Glucose Negative Blood Type Antibody Screen Crossmatch 01/31/20 01/31/20 01/31/20 22:28 23:35 23:35 WBC 14.9 H RBC 3.51 L Hgb 10.5 L Hct 33 L MCV 94 MCH 30 MCHC 32 RDW 17 H Plt Count 175 MPV 7.1 L Neut % (Auto) Lymph % (Auto) Hutchinson % (Auto) Eos % (Auto) Baso % (Auto) Absolute Neuts (auto) Absolute Lymphs (auto) Absolute Monos (auto) Absolute Eos (auto) Absolute Basos (auto) Absolute Nucleated RBC Nucleated RBC % INR (Anticoag Therapy) APTT Sodium 133 L Potassium 6.2 H* 4.8 Chloride 105 Carbon Dioxide 19 L Anion Gap 9 BUN 18 Creatinine 0.54 Est GFR ( Amer) 138.9 Est GFR (Non-Af Amer) 114.8 BUN/Creatinine Ratio 33.3 H Glucose 83 Lactic Acid Calcium 7.8 L Magnesium 2.6 Total Bilirubin 0.60 AST 10 L ALT 3 L Alkaline Phosphatase 120 H Troponin I 0.01 C-Reactive Protein B-Natriuretic Peptide Total Protein 5.6 L Albumin 2.5 L Globulin 3.1 Albumin/Globulin Ratio 0.8 L Lipase Urine Color Urine Appearance Urine pH Ur Specific Fonda Urine Protein Urine Ketones Urine Blood Urine Nitrate Urine Bilirubin Urine Urobilinogen Ur Leukocyte Esterase Urine WBC (Auto) Urine RBC (Auto) Ur Squamous Epith Cells Urine Bacteria Urine Glucose Blood Type Antibody Screen Crossmatch 02/01/20 02/01/20 04:09 04:09 WBC 12.8 H RBC 3.28 L Hgb 9.9 L Hct 30 L MCV 92 MCH 30 MCHC 33 RDW 16 H Plt Count 149 L MPV 6.7 L Neut % (Auto) Lymph % (Auto) Hutchinson % (Auto) Eos % (Auto) Baso % (Auto) Absolute Neuts (auto) Absolute Lymphs (auto) Absolute Monos (auto) Absolute Eos (auto) Absolute Basos (auto) Absolute Nucleated RBC Nucleated RBC % INR (Anticoag Therapy) APTT Sodium 133 L Potassium TNP Chloride 103 Carbon Dioxide 23 Anion Gap 7 BUN 18 Creatinine 0.54 Est GFR ( Amer) 138.9 Est GFR (Non-Af Amer) 114.8 BUN/Creatinine Ratio 33.3 H Glucose 92 Lactic Acid Calcium 8.0 L Magnesium Total Bilirubin AST ALT Alkaline Phosphatase Troponin I C-Reactive Protein B-Natriuretic Peptide Total Protein Albumin Globulin Albumin/Globulin Ratio Lipase Urine Color Urine Appearance Urine pH Ur Specific Fonda Urine Protein Urine Ketones Urine Blood Urine Nitrate Urine Bilirubin Urine Urobilinogen Ur Leukocyte Esterase Urine WBC (Auto) Urine RBC (Auto) Ur Squamous Epith Cells Urine Bacteria Urine Glucose Blood Type Antibody Screen Crossmatch Assessment/Plan: []Mrs. 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 She has been stable on Pradaxa for nearly two years, unfortunately now presenting with acute GI bleed. Her anticoagulation has been held and she received 2 units of PRBCs with stabilization of her hemoglobin. She is clearly high risk for recurrent clots as well as bleeding with any intervention. During acute insult recommend starting anticoagulation within ~24hrs with IV Argatroban as long as counts stable and will plan to transition to dose reduced DOAC with Eliquis 2.5 mg PO BID on discharge. HemOnc will continue to follow.
[2020-02-01 09:42] LABS: Calcium 8.1 mg/dL (8.6-10.3); Potassium 4.2 mmol/L (3.5-5.0)
[2020-02-01 09:47] LABS: BUN/Creatinine Ratio 32.8 (8-20); EGFR African American 120.7 (>60); EGFR Non-African American 99.7 (>60)
[2020-02-01 12:27] LABS: Hematocrit 30 % (35-47); Hemoglobin 9.7 g/dL (12.0-16.0); Mean Corpuscular HGB Conc 33 g/dL (31-36); Mean Corpuscular Hemoglobin 30 pg (27-31); Mean Corpuscular Volume 91 fL (80-97); Mean Platelet Volume 6.5 fL (7.4-10.4); Platelet Count 160 10^3/uL (150-450); Red Blood Count 3.25 10^6 /uL (3.70-4.87); Red Cell Distribution Width 16 % (10-15); White Blood Count 13.3 10^3/uL (3.5-10.8)
--- NOTE | 2020-02-01 15:00 | PN ---
<Gabrielle Isaacs - Last Filed: 02/01/20 14:38> Progress Note - Progress Note Date of Service: 02/01/20 Note: Progress Note -- Critical Care 24 hour events/significant events: - Patient's stools have decreased, still remain BRBPR however. VSS and labs are improved - She remains NPO with IVF for hydration - Her only complaints are back, abdomen, and head pain. These are her baseline. ROS: negative except for pertinent positives mentioned above Tele: NSR Vitals: Vital Signs 01/31/20 01/31/20 01/31/20 14:56 15:00 15:11 Temperature Pulse Rate 127 127 123 Respiratory 13 16 14 Rate Blood Pressure 112/83 107/73 (mmHg) O2 Sat by Pulse 96 97 97 Oximetry 01/31/20 01/31/20 01/31/20 15:36 15:51 16:00 Temperature Pulse Rate 116 117 120 Respiratory 11 15 21 Rate Blood Pressure 121/79 120/86 129/90 (mmHg) O2 Sat by Pulse 95 97 96 Oximetry 01/31/20 01/31/20 01/31/20 16:06 16:07 16:21 Temperature 97.3 F Pulse Rate 122 121 Respiratory 11 10 Rate Blood Pressure 116/75 105/77 (mmHg) O2 Sat by Pulse 97 96 Oximetry 01/31/20 01/31/20 01/31/20 16:31 16:36 16:40 Temperature 98 F Pulse Rate 123 123 119 Respiratory 13 12 13 Rate Blood Pressure 116/85 120/79 129/90 (mmHg) O2 Sat by Pulse 99 97 99 Oximetry 01/31/20 01/31/20 01/31/20 16:43 17:00 17:01 Temperature 97.3 F Pulse Rate 121 Respiratory 14 19 15 Rate Blood Pressure 120/79 (mmHg) O2 Sat by Pulse 97 Oximetry 01/31/20 01/31/20 01/31/20 17:30 18:00 18:30 Temperature Pulse Rate 117 113 110 Respiratory 16 19 9 Rate Blood Pressure 103/81 124/90 128/84 (mmHg) O2 Sat by Pulse 99 100 99 Oximetry 01/31/20 01/31/20 01/31/20 19:00 19:30 19:32 Temperature Pulse Rate 112 113 Respiratory 19 15 17 Rate Blood Pressure 112/77 130/104 122/85 (mmHg) O2 Sat by Pulse 98 98 Oximetry 01/31/20 01/31/20 01/31/20 20:00 20:30 21:00 Temperature 98.3 F Pulse Rate 111 111 109 Respiratory 17 15 11 Rate Blood Pressure 116/82 122/87 (mmHg) O2 Sat by Pulse 99 95 99 Oximetry 01/31/20 01/31/20 01/31/20 21:01 21:31 21:33 Temperature Pulse Rate 109 Respiratory 14 12 11 Rate Blood Pressure 127/89 128/113 118/83 (mmHg) O2 Sat by Pulse 96 Oximetry 01/31/20 01/31/20 01/31/20 21:47 22:00 22:30 Temperature Pulse Rate 112 110 111 Respiratory 18 10 20 Rate Blood Pressure 113/86 108/79 111/85 (mmHg) O2 Sat by Pulse 98 98 100 Oximetry 01/31/20 01/31/20 01/31/20 23:00 23:33 23:47 Temperature Pulse Rate 111 115 113 Respiratory 11 12 18 Rate Blood Pressure 110/78 119/81 (mmHg) O2 Sat by Pulse 99 97 98 Oximetry 02/01/20 02/01/20 02/01/20 00:00 00:14 00:30 Temperature 97.9 F Pulse Rate 115 112 107 Respiratory 10 10 13 Rate Blood Pressure 120/76 121/79 128/76 (mmHg) O2 Sat by Pulse 99 98 97 Oximetry 02/01/20 02/01/20 02/01/20 01:00 01:30 02:00 Temperature Pulse Rate 114 109 107 Respiratory 12 11 10 Rate Blood Pressure 119/86 112/80 101/72 (mmHg) O2 Sat by Pulse 98 97 97 Oximetry 02/01/20 02/01/20 02/01/20 02:30 03:00 03:30 Temperature Pulse Rate 105 107 107 Respiratory 12 12 15 Rate Blood Pressure 111/79 110/88 118/78 (mmHg) O2 Sat by Pulse 98 97 96 Oximetry 02/01/20 02/01/20 02/01/20 04:00 04:30 05:00 Temperature 97.3 F Pulse Rate 109 104 107 Respiratory 11 10 12 Rate Blood Pressure 112/77 116/76 108/72 (mmHg) O2 Sat by Pulse 97 97 98 Oximetry 02/01/20 02/01/20 02/01/20 05:30 06:00 06:31 Temperature Pulse Rate 105 105 104 Respiratory 12 10 9 Rate Blood Pressure 124/81 111/85 142/91 (mmHg) O2 Sat by Pulse 98 98 99 Oximetry 02/01/20 02/01/20 02/01/20 07:00 07:30 08:00 Temperature 98.0 F Pulse Rate 107 107 Respiratory 14 12 Rate Blood Pressure 115/77 124/77 (mmHg) O2 Sat by Pulse 97 96 Oximetry 02/01/20 02/01/20 02/01/20 08:01 08:02 09:00 Temperature Pulse Rate 104 107 107 Respiratory 21 10 13 Rate Blood Pressure 116/80 118/80 (mmHg) O2 Sat by Pulse 97 98 100 Oximetry 02/01/20 02/01/20 02/01/20 10:00 11:00 11:32 Temperature Pulse Rate 102 101 Respiratory 19 17 16 Rate Blood Pressure 107/80 113/68 (mmHg) O2 Sat by Pulse 97 98 Oximetry 02/01/20 02/01/20 02/01/20 12:00 12:36 13:00 Temperature 97.4 F Pulse Rate 105 104 Respiratory 10 16 14 Rate Blood Pressure 123/86 118/81 (mmHg) O2 Sat by Pulse 99 99 Oximetry 02/01/20 02/01/20 02/01/20 13:58 14:00 14:35 Temperature Pulse Rate 97 103 Respiratory 14 12 26 Rate Blood Pressure 110/81 141/83 (mmHg) O2 Sat by Pulse 98 97 Oximetry 02/01/20 02/01/20 14:36 14:40 Temperature Pulse Rate 102 Respiratory 14 16 Rate Blood Pressure 126/82 (mmHg) O2 Sat by Pulse 99 Oximetry Intake and Output Last 24 Hours 01/30/20 01/31/20 02/01/20 02/02/20 05:59 06:59 06:59 06:59 Intake Total 1757 405 Output Total 745 335 Balance 1012 70 Weight 143 lb 1.28 oz Intake: IV Fluids 1597 405 LR 327 NS (0.9%) 160 405 Potassium 110 IVPB 160 Magnesium 108 Potassium 52 Oral 0 Output: Smith [id number] Other: Date of Last Bowel 02/01/20 Movement # Bowel Movements 1 Estimated Stool Amount Small O2: RA Infusions: LR @ 75 Medications: Acetaminophen (Tylenol Tab*) 650 mg PO Q4H PRN PRN Reason: PAIN - MILD Last Admin: 02/01/20 07:42 Dose: 650 mg Dextrose (D50w Syringe 50 Ml*) 25 gm IV PUSH ONCE PRN PRN Reason: FS < 60 Stop: 02/01/20 22:53 Lactated Ringer's (Lactated Ringers 1000 Ml Bag*) 1,000 mls @ 75 mls/hr IV PER RATE [facility] Last Admin: 02/01/20 09:21 Dose: 75 mls/hr Ondansetron HCl (Zofran Inj*) 4 mg IV Q4H PRN PRN Reason: NAUSEA/VOMITING Pantoprazole Sodium (Protonix Iv*) 40 mg IV Q24H [facility] Last Admin: 01/31/20 19:23 Dose: 40 mg Physical Exam: Constitutional: awake, alert, no distress, no diaphoresis Head: normocephalic, atraumatic Eyes: no pallor, no icterus ENT: moist mucous membranes Neck: soft, supple, no jvd, no stridor CVS: normal rate, regular, no murmur Chest/Resp: bilateral air entry, no rhales, no wheeze, no rhonchi, no acc muscle use Abdomen/GI: soft, nontender, nondistended, BS hypoactive Ext/Msk: warm, pulses+, no edema Skin: intact, warm Neuro: awake, alert, orientedx3, speech is delayed, left sided weakness baseline Psych: flat affect Labs: Laboratory Results - last 24 hr 01/31/20 01/31/20 01/31/20 14:35 14:35 14:35 WBC 10.8 RBC 2.13 L Hgb 6.5 L Hct 20 L MCV 92 MCH 30 MCHC 33 RDW 17 H Plt Count 160 MPV 6.6 L Neut % (Auto) 82.7 Lymph % (Auto) 11.3 [place] % (Auto) 5.6 Eos % (Auto) 0.1 Baso % (Auto) 0.3 Absolute Neuts (auto) 9.0 H Absolute Lymphs (auto) 1.2 Absolute Monos (auto) 0.6 Absolute Eos (auto) 0.0 Absolute Basos (auto) 0.0 Absolute Nucleated RBC 0.0 Nucleated RBC % 0.0 INR (Anticoag Therapy) APTT Sodium 141 Potassium 2.6 L* Chloride 119 H Carbon Dioxide 14 L* Anion Gap 8 BUN 15 Creatinine 0.31 L Est GFR ( Amer) 263.5 Est GFR (Non-Af Amer) 217.8 BUN/Creatinine Ratio 48.4 H Glucose 74 Lactic Acid 0.8 Calcium 5.0 L* Magnesium 1.0 L Total Bilirubin 0.20 AST 5 L ALT 3 L Alkaline Phosphatase 71 Troponin I C-Reactive Protein 97.00 H B-Natriuretic Peptide Total Protein 3.8 L Albumin 1.5 L Globulin 2.3 Albumin/Globulin Ratio 0.7 L Lipase < 10 L Urine Color Urine Appearance Urine pH Ur Specific [place] Urine Protein Urine Ketones Urine Blood Urine Nitrate Urine Bilirubin Urine Urobilinogen Ur Leukocyte Esterase Urine WBC (Auto) Urine RBC (Auto) Ur Squamous Epith Cells Urine Bacteria Urine Glucose Blood Type Antibody Screen Crossmatch 01/31/20 01/31/20 01/31/20 14:35 14:35 14:35 WBC RBC Hgb Hct MCV MCH MCHC RDW Plt Count MPV Neut % (Auto) Lymph % (Auto) [place] % (Auto) Eos % (Auto) Baso % (Auto) Absolute Neuts (auto) Absolute Lymphs (auto) Absolute Monos (auto) Absolute Eos (auto) Absolute Basos (auto) Absolute Nucleated RBC Nucleated RBC % INR (Anticoag Therapy) 1.85 H APTT 52.4 H Sodium Potassium Chloride Carbon Dioxide Anion Gap BUN Creatinine Est GFR ( Amer) Est GFR (Non-Af Amer) BUN/Creatinine Ratio Glucose Lactic Acid Calcium Magnesium Total Bilirubin AST ALT Alkaline Phosphatase Troponin I C-Reactive Protein B-Natriuretic Peptide 52 Total Protein Albumin Globulin Albumin/Globulin Ratio Lipase Urine Color Urine Appearance Urine pH Ur Specific [place] Urine Protein Urine Ketones Urine Blood Urine Nitrate Urine Bilirubin Urine Urobilinogen Ur Leukocyte Esterase Urine WBC (Auto) Urine RBC (Auto) Ur Squamous Epith Cells Urine Bacteria Urine Glucose Blood Type O Positive Antibody Screen Negative Crossmatch See Detail 01/31/20 01/31/20 01/31/20 16:41 20:58 20:58 WBC 14.2 H RBC 3.44 L Hgb 10.4 L Hct 33 L MCV 94 MCH 30 MCHC 32 RDW 16 H Plt Count 180 MPV 6.7 L Neut % (Auto) Lymph % (Auto) [place] % (Auto) Eos % (Auto) Baso % (Auto) Absolute Neuts (auto) Absolute Lymphs (auto) Absolute Monos (auto) Absolute Eos (auto) Absolute Basos (auto) Absolute Nucleated RBC Nucleated RBC % INR (Anticoag Therapy) APTT Sodium 132 L D Potassium 5.1 H D Chloride 103 Carbon Dioxide 18 L Anion Gap 11 BUN 19 Creatinine 0.54 Est GFR ( Amer) 138.9 Est GFR (Non-Af Amer) 114.8 BUN/Creatinine Ratio 35.2 H Glucose 83 Lactic Acid Calcium 8.6 Magnesium Total Bilirubin AST ALT Alkaline Phosphatase Troponin I 0.00 C-Reactive Protein B-Natriuretic Peptide Total Protein Albumin Globulin Albumin/Globulin Ratio Lipase Urine Color Yellow Urine Appearance Clear Urine pH 5.0 Ur Specific [place] 1.048 H Urine Protein Negative Urine Ketones 1+ A Urine Blood 1+ A Urine Nitrate Negative Urine Bilirubin Negative Urine Urobilinogen Negative Ur Leukocyte Esterase Negative Urine WBC (Auto) Trace(0-5/hpf) Urine RBC (Auto) Trace(0-2/hpf) Ur Squamous Epith Cells Present A Urine Bacteria Absent Urine Glucose Negative Blood Type Antibody Screen Crossmatch 01/31/20 01/31/20 01/31/20 22:28 23:35 23:35 WBC 14.9 H RBC 3.51 L Hgb 10.5 L Hct 33 L MCV 94 MCH 30 MCHC 32 RDW 17 H Plt Count 175 MPV 7.1 L Neut % (Auto) Lymph % (Auto) [place] % (Auto) Eos % (Auto) Baso % (Auto) Absolute Neuts (auto) Absolute Lymphs (auto) Absolute Monos (auto) Absolute Eos (auto) Absolute Basos (auto) Absolute Nucleated RBC Nucleated RBC % INR (Anticoag Therapy) APTT Sodium 133 L Potassium 6.2 H* 4.8 Chloride 105 Carbon Dioxide 19 L Anion Gap 9 BUN 18 Creatinine 0.54 Est GFR ( Amer) 138.9 Est GFR (Non-Af Amer) 114.8 BUN/Creatinine Ratio 33.3 H Glucose 83 Lactic Acid Calcium 7.8 L Magnesium 2.6 Total Bilirubin 0.60 AST 10 L ALT 3 L Alkaline Phosphatase 120 H Troponin I 0.01 C-Reactive Protein B-Natriuretic Peptide Total Protein 5.6 L Albumin 2.5 L Globulin 3.1 Albumin/Globulin Ratio 0.8 L Lipase Urine Color Urine Appearance Urine pH Ur Specific [place] Urine Protein Urine Ketones Urine Blood Urine Nitrate Urine Bilirubin Urine Urobilinogen Ur Leukocyte Esterase Urine WBC (Auto) Urine RBC (Auto) Ur Squamous Epith Cells Urine Bacteria Urine Glucose Blood Type Antibody Screen Crossmatch 02/01/20 02/01/20 02/01/20 04:09 04:09 09:16 WBC 12.8 H RBC 3.28 L Hgb 9.9 L Hct 30 L MCV 92 MCH 30 MCHC 33 RDW 16 H Plt Count 149 L MPV 6.7 L Neut % (Auto) Lymph % (Auto) [place] % (Auto) Eos % (Auto) Baso % (Auto) Absolute Neuts (auto) Absolute Lymphs (auto) Absolute Monos (auto) Absolute Eos (auto) Absolute Basos (auto) Absolute Nucleated RBC Nucleated RBC % INR (Anticoag Therapy) APTT Sodium 133 L 135 Potassium TNP 4.2 Chloride 103 103 Carbon Dioxide 23 24 Anion Gap 7 8 BUN 18 20 Creatinine 0.54 0.61 Est GFR ( Amer) 138.9 120.7 Est GFR (Non-Af Amer) 114.8 99.7 BUN/Creatinine Ratio 33.3 H 32.8 H Glucose 92 91 Lactic Acid Calcium 8.0 L 8.1 L Magnesium Total Bilirubin AST ALT Alkaline Phosphatase Troponin I C-Reactive Protein B-Natriuretic Peptide Total Protein Albumin Globulin Albumin/Globulin Ratio Lipase Urine Color Urine Appearance Urine pH Ur Specific [place] Urine Protein Urine Ketones Urine Blood Urine Nitrate Urine Bilirubin Urine Urobilinogen Ur Leukocyte Esterase Urine WBC (Auto) Urine RBC (Auto) Ur Squamous Epith Cells Urine Bacteria Urine Glucose Blood Type Antibody Screen Crossmatch 02/01/20 12:00 WBC 13.3 H RBC 3.25 L Hgb 9.7 L Hct 30 L MCV 91 MCH 30 MCHC 33 RDW 16 H Plt Count 160 MPV 6.5 L Neut % (Auto) Lymph % (Auto) [place] % (Auto) Eos % (Auto) Baso % (Auto) Absolute Neuts (auto) Absolute Lymphs (auto) Absolute Monos (auto) Absolute Eos (auto) Absolute Basos (auto) Absolute Nucleated RBC Nucleated RBC % INR (Anticoag Therapy) APTT Sodium Potassium Chloride Carbon Dioxide Anion Gap BUN Creatinine Est GFR ( Amer) Est GFR (Non-Af Amer) BUN/Creatinine Ratio Glucose Lactic Acid Calcium Magnesium Total Bilirubin AST ALT Alkaline Phosphatase Troponin I C-Reactive Protein B-Natriuretic Peptide Total Protein Albumin Globulin Albumin/Globulin Ratio Lipase Urine Color Urine Appearance Urine pH Ur Specific [place] Urine Protein Urine Ketones Urine Blood Urine Nitrate Urine Bilirubin Urine Urobilinogen Ur Leukocyte Esterase Urine WBC (Auto) Urine RBC (Auto) Ur Squamous Epith Cells Urine Bacteria Urine Glucose Blood Type Antibody Screen Crossmatch Imaging: CT abdomen/pelvis 01/30: unchanged uterine mass, diverticulosis, chronic compression fractures, s/o johnny, IVC filter in place Assessment: 59F with extensive PMH, presents on 01/31/20 after experiencing GI bleed. Admitted to ICU after 2L IVF and 2UPRBC. Plan: Neuro- - No active issues, is at baseline after her RMCA infarct -Delirium prec; avoid BDZ CVS- -No active issues. BP has remained stable since admission. -Maintain MAP>65 Resp- -Keep sat>92% -Aspiration prec, Pulmonary Toilet ID- - No active issues - Goal temp<101 GI- -Nutrition: NPO -GI prophylaxis PPI - GI is on board, appreciate follow up Renal- -strict I/O, replete to keep K>4, Mg>2 -smith - Electrolytes not accurate overnight but rechecks have been normal. Will continue checking BMPs regularly as well Heme- - History of DVT: was on pradaxa, was given praxbind in ED. Heme/Onc is also on board. - Patient will need to be restarted on anticoagulation when heme/onc and GI clears her. She is high risk for DVT - Hemoglobin has recovered. Will continue checking CBC q8hr Endo-Maintain BG<200, insulin protocol as needed Musculsk- pressure ulcer prophylaxis. Bedrest. Wounds- none Nutrition- NPO DVT prophylaxis: contraindicated GI prophylaxis: PPI Smith Catheter: continue Disposition: Patient is likely ready for floor by end of day. 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 Since discharge has still been having intermittent bleeding from vagina but started to have bleeding per rectum since 01/27 but 01/30 come to ER for profuse bleeding per rectum. She was tachycardic, hypotensive 80s, with acute blood loss anemia with hg 6.5, metabolic acidosis, given PraxBind for acute hemorrhage, 2 PRBC. A CTA abd/pelvis demonstrated diverticulosis, necrotic uterus. 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 Patient has small amounts of bleeding, hemodyn stable. cont cbc q8h. discussed with IR, if bleeding starts to occur again, will need CTA abd/pelvis 4phase study. GI following and no acute plan for colonoscopy. Will tranfuse as needed for maintaining hg>7. AC is on hold for now, once bleeding has stopped will need to resume AC, for ARJUN/DVT, likely considering argatroban givne shorter half life compared to other NOACs. Currently NPO, may consider PO diet tomorrow clear liquid. BP improved, stable today. HR still mild tachy low 100s sinus. maintain ICU today
[2020-02-01] MEDS: Pantoprazole IV* 40 MG IV SCH (16:13)
[2020-02-01] MEDS ORDERED: Morphine TAB Extended Release (*) 15 MG TAB.ER PO ONE (19:56)
[2020-02-01] MEDS ORDERED: Morphine TAB Extended Release (*) 30 MG TAB.ER PO ONE (19:56)
[2020-02-01 20:29] LABS: Hematocrit 27 % (35-47); Hemoglobin 8.7 g/dL (12.0-16.0); Mean Corpuscular HGB Conc 33 g/dL (31-36); Mean Corpuscular Hemoglobin 30 pg (27-31); Mean Corpuscular Volume 91 fL (80-97); Mean Platelet Volume 6.6 fL (7.4-10.4); Platelet Count 160 10^3/uL (150-450); Red Cell Distribution Width 16 % (10-15); White Blood Count 13.9 10^3/uL (3.5-10.8)
[2020-02-02 04:57] LABS: Hematocrit 21 % (35-47); Hemoglobin 6.8 g/dL (12.0-16.0); Mean Corpuscular HGB Conc 33 g/dL (31-36); Mean Corpuscular Hemoglobin 30 pg (27-31); Mean Corpuscular Volume 92 fL (80-97); Mean Platelet Volume 6.8 fL (7.4-10.4); Platelet Count 139 10^3/uL (150-450); Red Blood Count 2.28 10^6 /uL (3.70-4.87); Red Cell Distribution Width 16 % (10-15); White Blood Count 11.8 10^3/uL (3.5-10.8)
[2020-02-02 06:45] LABS: Calcium 7.2 mg/dL (8.6-10.3); EGFR African American 171.4 (>60); EGFR Non-African American 141.6 (>60); Potassium 3.8 mmol/L (3.5-5.0)
[2020-02-02] MEDS: Acetaminophen TAB* 325 MG PO PRN (09:23)
[2020-02-02] MEDS ORDERED: Iohexol 350* (CONTRAST) 500 ML MDV IV ONE (10:54)
[2020-02-02] MEDS: Lactated Ringers 1000 ML Bag* 1,000 ML IV SCH (14:50)
[2020-02-02 15:57] LABS: Hematocrit 24 % (35-47); Hemoglobin 7.9 g/dL (12.0-16.0); Mean Corpuscular HGB Conc 33 g/dL (31-36); Mean Corpuscular Hemoglobin 30 pg (27-31); Mean Corpuscular Volume 91 fL (80-97); Mean Platelet Volume 6.7 fL (7.4-10.4); Platelet Count 155 10^3/uL (150-450); Red Blood Count 2.59 10^6 /uL (3.70-4.87); Red Cell Distribution Width 15 % (10-15); White Blood Count 16.7 10^3/uL (3.5-10.8)
--- NOTE | 2020-02-02 16:33 | PN ---
<Gabrielle Isaacs - Last Filed: 02/02/20 16:18> Progress Note - Progress Note Date of Service: 02/02/20 Note: Progress Note -- Critical Care 24 hour events/significant events: - Patient continues to have BRBPR. - Vitals remain stable. - Hgb 6.8, 1UPRBC ordered - Patient offers complaints of baseline back and abdominal pain. ROS: negative except for pertinent positives mentioned above Tele: NSR Vitals: Vital Signs 02/01/20 02/01/20 02/01/20 17:00 17:40 18:00 Temperature Pulse Rate 107 107 Respiratory 22 18 18 Rate Blood Pressure 112/84 114/77 (mmHg) O2 Sat by Pulse 98 99 Oximetry 02/01/20 02/01/20 02/01/20 19:00 19:31 20:00 Temperature 99.1 F Pulse Rate 109 102 Respiratory 17 14 Rate Blood Pressure 110/81 111/77 (mmHg) O2 Sat by Pulse 99 97 Oximetry 02/01/20 02/01/20 02/01/20 21:00 22:00 23:00 Temperature Pulse Rate 104 106 107 Respiratory 19 17 13 Rate Blood Pressure 118/74 109/75 117/79 (mmHg) O2 Sat by Pulse 100 99 100 Oximetry 02/01/20 02/01/20 02/02/20 23:04 23:47 00:00 Temperature 98.0 F Pulse Rate 104 96 Respiratory 15 12 Rate Blood Pressure 108/69 (mmHg) O2 Sat by Pulse 99 98 Oximetry 02/02/20 02/02/20 02/02/20 01:00 02:00 03:00 Temperature Pulse Rate 117 115 109 Respiratory 18 13 11 Rate Blood Pressure 100/68 127/74 125/84 (mmHg) O2 Sat by Pulse 100 99 97 Oximetry 02/02/20 02/02/20 02/02/20 04:00 05:00 05:09 Temperature 98.9 F Pulse Rate 119 119 118 Respiratory 15 14 10 Rate Blood Pressure 133/78 (mmHg) O2 Sat by Pulse 99 99 100 Oximetry 02/02/20 02/02/20 02/02/20 06:00 06:01 06:46 Temperature Pulse Rate 120 119 119 Respiratory 12 14 Rate Blood Pressure 138/88 129/81 (mmHg) O2 Sat by Pulse 100 100 100 Oximetry 02/02/20 02/02/20 02/02/20 07:00 07:54 08:00 Temperature 98.5 F Pulse Rate 117 Respiratory 15 14 Rate Blood Pressure 124/80 (mmHg) O2 Sat by Pulse 99 Oximetry 02/02/20 02/02/20 02/02/20 09:00 10:00 10:39 Temperature Pulse Rate 114 112 109 Respiratory 15 12 14 Rate Blood Pressure 122/75 122/75 124/82 (mmHg) O2 Sat by Pulse 99 100 99 Oximetry 02/02/20 02/02/20 02/02/20 11:00 13:03 13:12 Temperature Pulse Rate 107 114 117 Respiratory 13 19 Rate Blood Pressure 116/78 126/56 (mmHg) O2 Sat by Pulse 100 99 99 Oximetry 02/02/20 02/02/20 02/02/20 13:46 13:52 14:00 Temperature 97.6 F Pulse Rate 110 112 116 Respiratory 12 14 14 Rate Blood Pressure 117/78 117/78 124/74 (mmHg) O2 Sat by Pulse 97 97 98 Oximetry 02/02/20 02/02/20 15:00 15:01 Temperature Pulse Rate 113 117 Respiratory 20 14 Rate Blood Pressure 118/70 (mmHg) O2 Sat by Pulse 100 98 Oximetry Intake and Output Last 24 Hours 01/31/20 02/01/20 02/02/20 02/03/20 06:59 06:59 06:59 06:59 Intake Total 1757 1553 890 Output Total 745 335 Balance 1012 1218 890 Weight 143 lb 1.28 oz 144 lb 2.917 oz Intake: IV Fluids 1597 1553 560 LR 327 1148 560 NS (0.9%) 160 405 Potassium 110 IVPB 160 Magnesium 108 Potassium 52 Oral 0 0 Packed Cells 330 Output: Smith [id number] [id number] Other: Date of Last Bowel 02/01/20 Movement # Bowel Movements 1 1 Estimated Stool Amount Medium Large O2: RA Infusions: LR @ 75 Medications: Acetaminophen (Tylenol Tab*) 650 mg PO Q4H PRN PRN Reason: PAIN - MILD Last Admin: 02/02/20 09:23 Dose: 650 mg Lactated Ringer's (Lactated Ringers 1000 Ml Bag*) 1,000 mls @ 75 mls/hr IV PER RATE [facility] Last Admin: 02/02/20 14:50 Dose: 75 mls/hr Ondansetron HCl (Zofran Inj*) 4 mg IV Q4H PRN PRN Reason: NAUSEA/VOMITING Pantoprazole Sodium (Protonix Iv*) 40 mg IV Q24H [facility] Last Admin: 02/01/20 16:13 Dose: 40 mg Physical Exam: Constitutional: awake, alert, no distress, no diaphoresis Head: normocephalic, atraumatic Eyes: no pallor, no icterus ENT: moist mucous membranes Neck: soft, supple CVS: normal rate, regular, no murmur Chest/Resp: bilateral air entry, no rhales, no wheeze, no rhonchi, no acc muscle use Abdomen/GI: soft, nontender, nondistended, BS hypoactive Ext/Msk: warm, pulses+, no edema Skin: intact, warm Neuro: awake, alert, orientedx3, speech is delayed, left sided weakness baseline Psych: flat affect Labs: Laboratory Results - last 24 hr 01/31/20 02/01/20 02/02/20 14:35 20:22 04:44 WBC 13.9 H 11.8 H RBC 2.90 L 2.28 L Hgb 8.7 L 6.8 L Hct 27 L 21 L MCV 91 92 MCH 30 30 MCHC 33 33 RDW 16 H 16 H Plt Count 160 139 L MPV 6.6 L 6.8 L Sodium Potassium Chloride Carbon Dioxide Anion Gap BUN Creatinine Est GFR ( Amer) Est GFR (Non-Af Amer) BUN/Creatinine Ratio Glucose Calcium Blood Type O Positive Antibody Screen Negative Crossmatch See Detail 02/02/20 02/02/20 04:44 15:30 WBC 16.7 H RBC 2.59 L Hgb 7.9 L Hct 24 L MCV 91 MCH 30 MCHC 33 RDW 15 Plt Count 155 MPV 6.7 L Sodium 134 L Potassium 3.8 Chloride 102 Carbon Dioxide 22 Anion Gap 10 BUN 18 Creatinine 0.45 L Est GFR ( Amer) 171.4 Est GFR (Non-Af Amer) 141.6 BUN/Creatinine Ratio 40.0 H Glucose 72 Calcium 7.2 L Blood Type Antibody Screen Crossmatch Imaging: CTA abd/pelvis: Neg for lower GI bleeding source, unchanged uterine enlargement CT abdomen/pelvis 01/30: unchanged uterine mass, diverticulosis, chronic compression fractures, s/o johnny, IVC filter in place Assessment: 59F with extensive PMH, presents on 01/31/20 after experiencing GI bleed. Admitted to ICU after 2L IVF and 2UPRBC. - Hemorrhagic shock - Anemia - Lower GI bleed Plan: Neuro- - No active issues, is at baseline after her RMCA infarct -Delirium prec; avoid BDZ CVS- -No active issues. BP has remained stable since admission. -Maintain MAP>65 Resp- - No active issues -Keep sat>92% -Aspiration prec, Pulmonary Toilet ID- - No active issues - Goal temp<101 GI- -Nutrition: NPO -GI prophylaxis PPI - GI is on board, will not be doing colonoscopy - Lower GI bleed: acute on chronic. CTA abd/pelvis failed to localize bleeding. Discussed IR for embolization but patient is hesitant. Renal- -strict I/O, replete to keep K>4, Mg>2 -smith - Electrolytes stable Heme- - History of DVT: was on pradaxa, was given praxbind in ED. Heme/Onc is also on board. - Patient will need to be restarted on anticoagulation when heme/onc and GI clears her. She is high risk for DVT - Hemoglobin low again this AM. Replaced with 1UPRBC. Rpt hgb stable. Endo-Maintain BG<200, insulin protocol as needed Musculsk- pressure ulcer prophylaxis. Bedrest. 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 Since discharge has still been having intermittent bleeding from vagina but started to have bleeding per rectum since 01/27 but 01/30 come to ER for profuse bleeding per rectum. She was tachycardic, hypotensive 80s, with acute blood loss anemia with hg 6.5, metabolic acidosis, given PraxBind for acute hemorrhage, 2 PRBC. A CTA abd/pelvis demonstrated diverticulosis, necrotic uterus. -acute lower GI bleed -hypovolemic shock, resolved -acute blood loss anemia -DVT h/o ARJUN Endometrial cancer h/o MCA CVA with residual left weakness ongoing bleeding this mroning, larger bowel movement with melena. drop in h/h was noted from 10.5 yesterday to 6.8 we discussed with patient and heme and GI; patient does not want any colonoscopy ; we discussed CTA nad possible IR procedure. she was amenable to that. plan discussed with patient about ongoing bleeding CTA 4phase done - no source identified. will contact IR tomorrow for further eval. may need a colonoscopy at this point. cont cbc q8h no AC at this time givne ongoign bleeding; she remains at high risk of further thrombosis since she is off AC. GI not planning a colonscopy since patient not wanting one, unclear if they could be able to identify a source. BP otherwise stable, cont IVF , transfuse as needed. 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
[2020-02-02] MEDS: Pantoprazole IV* 40 MG IV SCH (17:01)
[2020-02-02] MEDS: HYDROmorphone INJ1* 1 MG/ML SYRINGE IV SLOW PU PRN (20:10)
[2020-02-03] MEDS: HYDROmorphone INJ1* 1 MG/ML SYRINGE IV SLOW PU PRN ×4 (00:09→19:41)
[2020-02-03] MEDS: Lactated Ringers 1000 ML Bag* 1,000 ML IV SCH ×2 (04:27→22:03)
[2020-02-03 05:20] LABS: Hematocrit 21 % (35-47); Hemoglobin 7.1 g/dL (12.0-16.0); Mean Corpuscular HGB Conc 33 g/dL (31-36); Mean Corpuscular Hemoglobin 31 pg (27-31); Mean Corpuscular Volume 91 fL (80-97); Mean Platelet Volume 6.9 fL (7.4-10.4); Platelet Count 161 10^3/uL (150-450); Red Blood Count 2.33 10^6 /uL (3.70-4.87); Red Cell Distribution Width 15 % (10-15); White Blood Count 15.9 10^3/uL (3.5-10.8)
[2020-02-03 05:39] LABS: BUN/Creatinine Ratio 35.4 (8-20); EGFR African American 159.1 (>60); EGFR Non-African American 131.5 (>60); Magnesium 1.4 mg/dL (1.9-2.7); Phosphorus 2.4 mg/dL (2.5-5.0); Potassium 3.7 mmol/L (3.5-5.0)
[2020-02-03 05:49] LABS: ABS Basophils 0.1 10^3/ul (0-0.2); ABS Monocytes 0.9 10^3/ul (0-0.8); ABS Neutrophils 13.9 10^3/ul (1.5-7.7); Eosinophil % 0.1 %; Lymphocyte % 6.3 %
--- NOTE | 2020-02-03 11:13 | PN ---
Progress Note - Progress Note Date of Service: 02/03/20 SOAP: Subjective: []Feeling OK this AM. Family friend at bedside providing energy work. Cynthia states she has some abd. pain and cramping but no worse. Heat packs help. Medications: Acetaminophen (Tylenol Tab*) 650 mg PO Q4H PRN PRN Reason: PAIN - MILD Last Admin: 02/02/20 09:23 Dose: 650 mg Hydromorphone HCl (Dilaudid Inj1s*) 1 mg IV SLOW PU Q4H PRN PRN Reason: PAIN - MODERATE Last Admin: 02/03/20 00:09 Dose: 1 mg Lactated Ringer's (Lactated Ringers 1000 Ml Bag*) 1,000 mls @ 75 mls/hr IV PER RATE [facility] Last Admin: 02/03/20 04:27 Dose: 75 mls/hr Ondansetron HCl (Zofran Inj*) 4 mg IV Q4H PRN PRN Reason: NAUSEA/VOMITING Pantoprazole Sodium (Protonix Iv*) 40 mg IV Q24H [facility] Last Admin: 02/02/20 17:01 Dose: 40 mg Objective: [ Vital Signs Temp Pulse Resp BP Pulse Ox 98.4 F 108 18 121/76 100 02/03/20 07:47 02/03/20 09:01 02/03/20 09:01 02/03/20 09:01 02/03/20 09:01 A&O, flat affect, communicating clearly Left sided weakness per baseline HRR, ST on tele LS clear +BS, abd. soft and mildly tender to LLQ Laboratory Results - last 24 hr 01/31/20 02/02/20 02/03/20 14:35 15:30 05:09 WBC 16.7 H RBC 2.59 L Hgb 7.9 L Hct 24 L MCV 91 MCH 30 MCHC 33 RDW 15 Plt Count 155 MPV 6.7 L Neut % (Auto) Lymph % (Auto) [place] % (Auto) Eos % (Auto) Baso % (Auto) Absolute Neuts (auto) Absolute Lymphs (auto) Absolute Monos (auto) Absolute Eos (auto) Absolute Basos (auto) Absolute Nucleated RBC Nucleated RBC % Sodium 134 L Potassium 3.7 Chloride 101 Carbon Dioxide 23 Anion Gap 10 BUN 17 Creatinine 0.48 L Est GFR ( Amer) 159.1 Est GFR (Non-Af Amer) 131.5 BUN/Creatinine Ratio 35.4 H Glucose 81 Calcium 8.0 L Phosphorus 2.4 L Magnesium 1.4 L Blood Type O Positive Antibody Screen Negative Crossmatch See Detail 02/03/20 05:09 WBC 15.9 H RBC 2.33 L Hgb 7.1 L Hct 21 L MCV 91 MCH 31 MCHC 33 RDW 15 Plt Count 161 MPV 6.9 L Neut % (Auto) 87.5 Lymph % (Auto) 6.3 [place] % (Auto) 5.7 Eos % (Auto) 0.1 Baso % (Auto) 0.4 Absolute Neuts (auto) 13.9 H Absolute Lymphs (auto) 1.0 Absolute Monos (auto) 0.9 H Absolute Eos (auto) 0.0 Absolute Basos (auto) 0.1 Absolute Nucleated RBC 0.0 Nucleated RBC % 0.0 Sodium Potassium Chloride Carbon Dioxide Anion Gap BUN Creatinine Est GFR ( Amer) Est GFR (Non-Af Amer) BUN/Creatinine Ratio Glucose Calcium Phosphorus Magnesium Blood Type Antibody Screen Crossmatch CTA abd/pelvis report without source of bleeding. Assessment: []Mrs. 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 She has been stable on Pradaxa for nearly two years, unfortunately now presenting with acute GI bleed. Her anticoagulation has been held and she received 3 units of PRBCs with stabilization of her hemoglobin, per nursing reports she appears to be bleeding less however still having BRBPR. She is clearly high risk for recurrent clots as well as bleeding with any intervention. At this time the source of her GI bleed has not been isolated, however she has not had a colonoscopy. 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
[2020-02-03] MEDS: Pantoprazole IV* 40 MG IV SCH (16:55)
[2020-02-03] MEDS ORDERED: Magnesium Sulfate 2 GM IV* 2 GM/50 ML BAG IVPB ONE (17:40)
--- NOTE | 2020-02-03 17:40 | PN ---
Date of Service: 02/03/20 Critical Care Services: Patient seen and examined. No acute events overnight. No bloody BMs today as per nursing, H&H somewhat stable at 7.1/21. Complaints of vague abdominal pain, mild SOB, no dizziness, no chest pain. Does seem extremely fatigued. Discussion with family at bedside regarding POC. Vital Signs: Temp Pulse Resp BP SpO2 FiO2 99.5 F 108 16 112/64 87 02/03/20 16:00 02/03/20 14:00 02/03/20 15:24 02/03/20 14:00 02/03/20 14:00 Physical Exam: General: Alert, pale, NAD HEENT: Normocephalic, atraumatic, non-icteric sclera, moist oral mucosa Neck: soft, supple, no JVD CV: Bounding pulses, mild tachycardia, regular rhythm, no murmurs or rubs Pulm/Chest: Good bilateral air entry, no rhonchi or rales, no wheeze Abdomen/GI: mild distension, mild pain diffuse, +BS noted MSK/Skin: warm, dry, intact, +2 pulses, + bilateral LE edema Neuro: A&Ox2, no gross focal deficits Psych: flat affect Fluid Balance (Past 24 Hours): Intake & Output 02/01/20 02/02/20 02/03/20 02/04/20 06:59 06:59 06:59 06:59 Intake Total 1757 1553 2006 728 Output Total 745 335 Balance 1012 1218 2006 728 Weight 143 lb 1.28 oz 144 lb 2.917 oz 145 lb 8.081 oz 145 lb 8.081 oz Intake: IV Fluids 1597 1553 1677 430 LR 327 1148 1677 430 NS (0.9%) 160 405 Potassium 110 IVPB 160 Magnesium 108 Potassium 52 Oral 0 0 60 Packed Cells 330 238 Output: Castillo 745 335 Other: Estimated Void Large Medium Date of Last Bowel 02/01/20 02/03/20 Movement # Bowel Movements 1 0 1 Estimated Stool Amount Medium Large Small # Voids 0 1 Labs: Laboratory Results - last 24 hr 01/31/20 02/03/20 02/03/20 14:35 05:09 05:09 WBC 15.9 H RBC 2.33 L Hgb 7.1 L Hct 21 L MCV 91 MCH 31 MCHC 33 RDW 15 Plt Count 161 MPV 6.9 L Neut % (Auto) 87.5 Lymph % (Auto) 6.3 [place] % (Auto) 5.7 Eos % (Auto) 0.1 Baso % (Auto) 0.4 Absolute Neuts (auto) 13.9 H Absolute Lymphs (auto) 1.0 Absolute Monos (auto) 0.9 H Absolute Eos (auto) 0.0 Absolute Basos (auto) 0.1 Absolute Nucleated RBC 0.0 Nucleated RBC % 0.0 Sodium 134 L Potassium 3.7 Chloride 101 Carbon Dioxide 23 Anion Gap 10 BUN 17 Creatinine 0.48 L Est GFR ( Amer) 159.1 Est GFR (Non-Af Amer) 131.5 BUN/Creatinine Ratio 35.4 H Glucose 81 Calcium 8.0 L Phosphorus 2.4 L Magnesium 1.4 L Blood Type O Positive Antibody Screen Negative Crossmatch See Detail Studies: Imaging: CTA abd/pelvis: Neg for lower GI bleeding source, unchanged uterine enlargement CT abdomen/pelvis 01/30: unchanged uterine mass, diverticulosis, chronic compression fractures, s/o johnny, IVC filter in place Nuclear bleeding scan: No abnormal foci of excretion of radiopharmaceutical into the bowel are demonstrated along the course of the colon or at the small bowel. Routine additional planar imaging in 24 hours initial postinjection or earlier in setting of clinical acute bleeding suggested. Nutrition: NPO Impression: This is a 59 year old female with extensive PMHx that presents on 01/31/20 after experiencing GI bleed. Admitted to ICU after 2L IVF and 2UPRBC. Diagnoses: 1. Acute lower GI bleed 2. Hypovolemic shock, resolved 3. Acute blood loss anemia 4. DVT with history of ARJUN 5. Endometrial cancer 6. Hx of MCA CVA with residual left weakness Plan: Neuro - No active issues, is at baseline after her RMCA infarct - Delirium prec; avoid BDZ CV - No active issues. BP has remained stable since admission. - Maintain MAP>65 Pulm - No active issues - Aspiration prec, Pulmonary Toilet ID - No active issues - Goal temp<101 GI - Nutrition: NPO - GI prophylaxis PPI - GI is on board, no plan for colonoscopy - CTA abd/pelvis failed to localize bleeding. Discussed IR for embolization but patient is hesitant. - [facility] bleeding scan 3/11 negative, may also be component of chronic necrotic uterine mass bleeding as well - CTA 4phase done - no source identified. - Continue H&H q8h - no AC at this time givne ongoign bleeding; she remains at high risk of further thrombosis since she is off AC.Defer to heme-onc regarding restart of pradaxa or other AC - Transfuse PRN Renal - strict I/O - Replete Kphos and mag, both low today and continue to monitor Heme - History of DVT: was on pradaxa, was given praxbind in ED. Heme/Onc is following - Patient will need to be restarted on anticoagulation when heme/onc and GI clears her. She is high risk for DVT - Continue to transfuse PRN, follow labs tonight Endo - No active issues Musculsk - Pressure ulcer prophylaxis. Bedrest. Wounds- none Nutrition- NPO DVT prophylaxis: SCDs only Castillo Catheter: continue Disposition: Continue ICU care for GIB, will be ready for floor once lower GI bleed improves Patient clinical status: stable Code Status: FULL Total Critical Care time is 35 minutes.
[2020-02-03 18:21] LABS: ABS Basophils 0.1 10^3/ul (0-0.2); ABS Lymphocytes 0.9 10^3/ul (1.0-4.8); ABS Monocytes 0.8 10^3/ul (0-0.8); ABS Neutrophils 12.5 10^3/ul (1.5-7.7); Eosinophil % 0.1 %; Hematocrit 23 % (35-47); Hemoglobin 7.5 g/dL (12.0-16.0); Lymphocyte % 6.6 %; Mean Corpuscular HGB Conc 34 g/dL (31-36); Mean Corpuscular Hemoglobin 31 pg (27-31); Mean Corpuscular Volume 92 fL (80-97); Mean Platelet Volume 7.3 fL (7.4-10.4); Platelet Count 148 10^3/uL (150-450); Red Blood Count 2.45 10^6 /uL (3.70-4.87); Red Cell Distribution Width 15 % (10-15); White Blood Count 14.3 10^3/uL (3.5-10.8)
[2020-02-03] MEDS ORDERED: Potassium Phosphate IV* 15 MMOLE in NS 0.9% 250 ML* 250 ML IVPB ONE (18:30)
[2020-02-04 04:45] LABS: Hematocrit 22 % (35-47); Hemoglobin 7.2 g/dL (12.0-16.0); Mean Corpuscular HGB Conc 34 g/dL (31-36); Mean Corpuscular Hemoglobin 31 pg (27-31); Mean Corpuscular Volume 93 fL (80-97); Mean Platelet Volume 6.8 fL (7.4-10.4); Platelet Count 121 10^3/uL (150-450); Red Blood Count 2.31 10^6 /uL (3.70-4.87); Red Cell Distribution Width 16 % (10-15)
[2020-02-04] MEDS: HYDROmorphone INJ1* 1 MG/ML SYRINGE IV SLOW PU PRN ×2 (05:00→09:01)
[2020-02-04 05:04] LABS: BUN/Creatinine Ratio 37.8 (8-20); Calcium 7.5 mg/dL (8.6-10.3); EGFR African American 214.8 (>60); EGFR Non-African American 177.5 (>60); Magnesium 1.6 mg/dL (1.9-2.7); Phosphorus 2.8 mg/dL (2.5-5.0); Potassium 3.6 mmol/L (3.5-5.0)
[2020-02-04 05:16] LABS: Polychromasia 1+
[2020-02-04 05:17] LABS: ABS Lymphocytes 0.7 10^3/ul (1.0-4.8); ABS Monocytes 0.6 10^3/ul (0-0.8); ABS Neutrophils 9.7 10^3/ul (1.5-7.7); Eosinophil % 0.2 %; Lymphocyte % 6.5 %
--- NOTE | 2020-02-04 09:43 | PN ---
Progress Note - Progress Note Date of Service: 02/04/20 SOAP: Subjective: Family in Hg 7.2 Slight rectal blood loss noted this AM per daughter Sedate from analgesia GI Bleeding scan prelim reported negative Objective: Somewhat sedate Left upper extremity amputation Abdomen soft No visualized active bleeding Cardiac RRR Vital Signs - 8 hr 02/04/20 02/04/20 02/04/20 02:00 03:00 03:52 Temperature 97.4 F Pulse Rate 85 100 Respiratory 12 13 Rate Blood Pressure 121/61 114/68 (mmHg) O2 Sat by Pulse 100 100 Oximetry 02/04/20 02/04/20 02/04/20 04:00 04:20 05:00 Temperature Pulse Rate 99 101 Respiratory 17 16 19 Rate Blood Pressure 116/76 126/73 (mmHg) O2 Sat by Pulse 100 93 Oximetry 02/04/20 02/04/20 06:00 09:01 Temperature Pulse Rate 89 Respiratory 14 14 Rate Blood Pressure 108/60 (mmHg) O2 Sat by Pulse 100 Oximetry Laboratory Results - last 24 hr 01/31/20 02/03/20 02/04/20 14:35 17:57 04:27 WBC 14.3 H RBC 2.45 L Hgb 7.5 L Hct 23 L MCV 92 MCH 31 MCHC 34 RDW 15 Plt Count 148 L MPV 7.3 L Neut % (Auto) 87.4 Lymph % (Auto) 6.6 [place] % (Auto) 5.5 Eos % (Auto) 0.1 Baso % (Auto) 0.4 Absolute Neuts (auto) 12.5 H Absolute Lymphs (auto) 0.9 L Absolute Monos (auto) 0.8 Absolute Eos (auto) 0.0 Absolute Basos (auto) 0.1 Absolute Nucleated RBC 0.0 Nucleated RBC % 0.0 Polychromasia Anisocytosis Macrocytosis Sodium 133 L Potassium 3.6 Chloride 103 Carbon Dioxide 20 L Anion Gap 10 BUN 14 Creatinine 0.37 L Est GFR ( Amer) 214.8 Est GFR (Non-Af Amer) 177.5 BUN/Creatinine Ratio 37.8 H Glucose 78 Calcium 7.5 L Phosphorus 2.8 Magnesium 1.6 L Blood Type O Positive Antibody Screen Negative Crossmatch See Detail 02/04/20 04:27 WBC 11.0 H RBC 2.31 L Hgb 7.2 L Hct 22 L MCV 93 MCH 31 MCHC 34 RDW 16 H Plt Count 121 L MPV 6.8 L Neut % (Auto) 87.8 Lymph % (Auto) 6.5 [place] % (Auto) 5.2 Eos % (Auto) 0.2 Baso % (Auto) 0.3 Absolute Neuts (auto) 9.7 H Absolute Lymphs (auto) 0.7 L Absolute Monos (auto) 0.6 Absolute Eos (auto) 0.0 Absolute Basos (auto) 0.0 Absolute Nucleated RBC 0.0 Nucleated RBC % 0.0 Polychromasia 1+ Anisocytosis 1+ Macrocytosis 1+ Sodium Potassium Chloride Carbon Dioxide Anion Gap BUN Creatinine Est GFR ( Amer) Est GFR (Non-Af Amer) BUN/Creatinine Ratio Glucose Calcium Phosphorus Magnesium Blood Type Antibody Screen Crossmatch Intake and Output Last 24 Hours 02/02/20 02/03/20 02/04/20 02/05/20 06:59 06:59 06:59 06:59 Intake Total 1553 2006 1020 Output Total 335 0 100 Balance 1218 2006 1020 -100 Weight 144 lb 2.917 oz 145 lb 8.081 oz 150 lb 6.307 oz Intake: IV Fluids 1553 1677 722 LR 1148 1677 580 Magnesium 50 NS (0.9%) 405 50 Potassium 42 Oral 0 0 60 Packed Cells 330 238 Output: Urine 0 100 Castillo 335 Other: Estimated Void Large Medium Date of Last Bowel 02/01/20 0 Movement # Bowel Movements 1 0 1 1 Estimated Stool Amount Medium Large Small Small # Voids 0 1 Acetaminophen (Tylenol Tab*) 650 mg PO Q4H PRN PRN Reason: PAIN - MILD Last Admin: 02/02/20 09:23 Dose: 650 mg Hydromorphone HCl (Dilaudid Inj1s*) 1 mg IV SLOW PU Q4H PRN PRN Reason: PAIN - MODERATE Last Admin: 02/04/20 09:01 Dose: 1 mg Lactated Ringer's (Lactated Ringers 1000 Ml Bag*) 1,000 mls @ 75 mls/hr IV PER RATE [facility] Last Admin: 02/03/20 22:03 Dose: 75 mls/hr Ondansetron HCl (Zofran Inj*) 4 mg IV Q4H PRN PRN Reason: NAUSEA/VOMITING Pantoprazole Sodium (Protonix Iv*) 40 mg IV Q24H [facility] Last Admin: 02/03/20 16:55 Dose: 40 mg Assessment: Gastrointestinal blood loss ? location History of thrombosis and HIT Recurrent endometrial cancer with palliative radiotherapy planned History Of MCA CVA Plan: Continue to hold anticoagulation for now Monitor CBC Follow up Tagged red cell scan Consider colonoscopy once stabilized Future reintroduction of anticoagulation such as dose adjusted Eliquis Will follow
[2020-02-04] MEDS: Lactated Ringers 1000 ML Bag* 1,000 ML IV SCH ×2 (11:47→21:29)
[2020-02-04] MEDS ORDERED: Magnesium Sulfate IV* 3 GM in NS 0.9% 100 ML* 100 ML IVPB ONE (12:20)
[2020-02-04] MEDS ORDERED: fentaNYL PATCH 12 MCG/HR TRANSDERM SCH (13:00)
--- NOTE | 2020-02-04 15:01 | PN ---
Date of Service: 02/04/20 Critical Care Services: Patient seen and examined. Discussed POC with patient and daughters at bedside. Patient is a little sleepy from dilaudid, but otherwise feeling ok. No large bleeding episodes overnight. Denies SOB, no n/v, no fevers, no further complaints. Discussed pain meds, family concerned that she is less interactive after having dilaudid yesterday and this morning. Vital Signs: Temp Pulse Resp BP SpO2 FiO2 98.5 F 94 14 110/64 99 02/04/20 11:59 02/04/20 14:00 02/04/20 14:00 02/04/20 14:00 02/04/20 14:00 Physical Exam: General: Alert, pale, NAD HEENT: Normocephalic, atraumatic, non-icteric sclera, moist oral mucosa Neck: soft, supple, no JVD CV: Bounding pulses, mild tachycardia, regular rhythm, no murmurs or rubs Pulm/Chest: Good bilateral air entry, no rhonchi or rales, no wheeze Abdomen/GI: mild distension, mild pain diffuse, +BS noted MSK/Skin: warm, dry, intact, +2 pulses, + bilateral LE edema, LUE amputee Neuro: A&Ox2, no gross focal deficits Psych: flat affect Fluid Balance (Past 24 Hours): I= O= Net Intake & Output 02/02/20 02/03/20 02/04/20 02/05/20 06:59 06:59 06:59 06:59 Intake Total 1553 2006 1020 1487 Output Total 335 0 100 Balance 1218 2006 1020 1387 Weight 144 lb 2.917 oz 145 lb 8.081 oz 150 lb 6.307 oz Intake: IV Fluids 1553 8479 536 8996 LR 1148 1983 822 7867 Magnesium 50 NS (0.9%) 405 50 Potassium 42 Oral 0 0 60 Packed Cells 330 238 Output: Urine 0 100 Castillo 335 Other: Estimated Void Large Medium Large Date of Last Bowel 02/01/20 0 Movement # Bowel Movements 1 0 1 1 Estimated Stool Amount Medium Large Small Small # Voids 0 1 1 Labs: Laboratory Results - last 24 hr 02/03/20 02/04/20 02/04/20 17:57 04:27 04:27 WBC 14.3 H 11.0 H RBC 2.45 L 2.31 L Hgb 7.5 L 7.2 L Hct 23 L 22 L MCV 92 93 MCH 31 31 MCHC 34 34 RDW 15 16 H Plt Count 148 L 121 L MPV 7.3 L 6.8 L Neut % (Auto) 87.4 87.8 Lymph % (Auto) 6.6 6.5 [place] % (Auto) 5.5 5.2 Eos % (Auto) 0.1 0.2 Baso % (Auto) 0.4 0.3 Absolute Neuts (auto) 12.5 H 9.7 H Absolute Lymphs (auto) 0.9 L 0.7 L Absolute Monos (auto) 0.8 0.6 Absolute Eos (auto) 0.0 0.0 Absolute Basos (auto) 0.1 0.0 Absolute Nucleated RBC 0.0 0.0 Nucleated RBC % 0.0 0.0 Polychromasia 1+ Anisocytosis 1+ Macrocytosis 1+ Sodium 133 L Potassium 3.6 Chloride 103 Carbon Dioxide 20 L Anion Gap 10 BUN 14 Creatinine 0.37 L Est GFR ( Amer) 214.8 Est GFR (Non-Af Amer) 177.5 BUN/Creatinine Ratio 37.8 H Glucose 78 Calcium 7.5 L Phosphorus 2.8 Magnesium 1.6 L Studies: Imaging: CTA abd/pelvis: Neg for lower GI bleeding source, unchanged uterine enlargement CT abdomen/pelvis 01/30: unchanged uterine mass, diverticulosis, chronic compression fractures, s/o johnny, IVC filter in place Nuclear bleeding scan: No abnormal foci of excretion of radiopharmaceutical into the bowel are demonstrated along the course of the colon or at the small bowel. Routine additional planar imaging in 24 hours initial postinjection or earlier in setting of clinical acute bleeding suggested. Nutrition: NPO Impression: This is a 59 year old female with extensive PMHx that presents on 01/31/20 after experiencing GI bleed. Admitted to ICU after 2L IVF and 2UPRBC. Diagnoses: 1. Acute lower GI bleed 2. Hypovolemic shock, resolved 3. Acute blood loss anemia, improving 4. DVT with history of ARJUN 5. Endometrial cancer 6. Hx of MCA CVA with residual left weakness Plan: Neuro - No active issues, is at baseline after her RMCA infarct - Somewhat sedated today after dilaudid administration this morning - Delirium prec; avoid BDZ CV - No active issues. BP and HR stable on tele - Maintain MAP>65 Pulm - No active issues - Aspiration prec, Pulmonary Toilet ID - No active issues - Goal temp<101 GI - Nutrition: NPO, consider advancing to clears this evening if family and patient are still opting to not have scope - GI consult appreciated. Had discussion with Dr. Gastelum today, patient remains high risk for scope and sedation given clotting/medical history and patient remains disinclined to have procedure in any case - CTA abd/pelvis failed to localize bleeding. Discussion was had with patient earlier in the week about potential for IR embolization but patient is hesitant - [facility] bleeding scan 02/02 negative, may also be component of chronic necrotic uterine mass bleeding as well - CTA 4phase done - no source identified. - Continue H&H q8h - no AC at this time given ongoing bleeding; she remains at high risk of further thrombosis since she is off AC. Defer to heme-onc regarding restart of pradaxa or other AC, potentially eliquis in the future - Transfuse PRN Renal - strict I/O - Replete lytes, continue more mag today Heme - History of DVT: was on pradaxa, was given praxbind in ED. Heme/Onc is following - Patient will need to be restarted on anticoagulation, possibility of eliquis when bleeding resolved, remains high risk for DVT - Continue to transfuse PRN, follow labs, H&H in the 7 and 21 range last 24 hours Endo - No active issues Musculsk/SKIN - Pressure ulcer prophylaxis Wounds- none Nutrition- NPO DVT prophylaxis: SCDs only Castillo Catheter: continue Disposition: Continue ICU care for GIB, will be ready for floor once lower GI bleed improves, potential downgrade in AM if no bleeding tonight. Patient clinical status: stable Code Status: FULL Total Critical Care time is 40 minutes.
[2020-02-04 15:47] LABS: Hematocrit 22 % (35-47); Hemoglobin 7.3 g/dL (12.0-16.0); Mean Corpuscular HGB Conc 33 g/dL (31-36); Mean Corpuscular Hemoglobin 31 pg (27-31); Mean Corpuscular Volume 93 fL (80-97); Mean Platelet Volume 6.5 fL (7.4-10.4); Platelet Count 145 10^3/uL (150-450); Red Blood Count 2.35 10^6 /uL (3.70-4.87); Red Cell Distribution Width 16 % (10-15); White Blood Count 12.7 10^3/uL (3.5-10.8)
[2020-02-04] MEDS: Pantoprazole IV* 40 MG IV SCH (16:42)
--- NOTE | 2020-02-04 17:01 | PN ---
Progress Note - Progress Note Date of Service: 02/04/20 Note: GI Follow up Patient seen and examined. Daughter in law at bedside. Discussed with tie tamper team. Patient denies pain. Had scant blood in bm this morning. VS: 113/70, P-97, R-10, 97% 3L Gen: alert, nad HEENT: At/nc, perrla, sclera anicteric, conjunctiva pink CVS: RRR s1s2 Resp: diminished b/l bases abd: soft, nt, nd, bs+ Lab: Hgb 7.5->7.2->7.3 Bleeding scan - on initial pass, delayed images trace activity in descending colon/spleen flex A/P Acute blood loss anemia History of HIT Active endometrial cancer with palliative approach planned Rec: Hgb stable at this time, bleeding appears to be decreasing. MOnitor closely. At this time patient would prefer to do conservative approach which is reasonable. Patient is elevated risk for flex sig complications including bleeding, perforation an anesthetic complications. Would continue to monitor if bleeding increases, clinical status or patient wishes change would notify GI service. All questions answered with patient and daughter in law and would like to proceed as outlined. Manan Nirav DO 02/04/20 1711.
[2020-02-04] MEDS: fentaNYL Patch Check Q Shift 1 NOTE SCH ×2 (19:24→23:25)
[2020-02-04 23:42] LABS: Hematocrit 25 % (35-47); Hemoglobin 8.5 g/dL (12.0-16.0); Mean Corpuscular HGB Conc 34 g/dL (31-36); Mean Corpuscular Hemoglobin 31 pg (27-31); Mean Corpuscular Volume 91 fL (80-97); Mean Platelet Volume 6.6 fL (7.4-10.4); Platelet Count 134 10^3/uL (150-450); Red Blood Count 2.75 10^6 /uL (3.70-4.87); Red Cell Distribution Width 15 % (10-15); White Blood Count 13.2 10^3/uL (3.5-10.8)
[2020-02-05 06:04] LABS: Blood Urea Nitrogen 12 mg/dL (6-24); CO2 Carbon Dioxide 20 mmol/L (22-32); Calcium 7.7 mg/dL (8.6-10.3); Chloride 102 mmol/L (101-111); EGFR African American 196.3 (>60); EGFR Non-African American 162.3 (>60); Glucose 73 mg/dL (70-100); Magnesium 1.7 mg/dL (1.9-2.7); Phosphorus 2.6 mg/dL (2.5-5.0); Sodium 133 mmol/L (135-145)
[2020-02-05 06:08] LABS: Anion Gap 11 mmol/L (2-11)
[2020-02-05] MEDS: fentaNYL Patch Check Q Shift 1 NOTE SCH ×2 (06:53→20:22)
--- NOTE | 2020-02-05 08:07 | PN ---
Progress Note - Progress Note Date of Service: 02/05/20 SOAP: Subjective: Patient resting, denies active bleeding GI note and 24 hour tagged red cell scan reviewed Transfused 1 unit 02/04/2020 with current Hg 8.5 Per notes has declined endoscopy at this time Objective: Abdomen soft Conversant Left distal arm amputation Vital Signs - 8 hr 02/05/20 02/05/20 02/05/20 01:00 02:00 03:00 Temperature Pulse Rate 83 92 96 Respiratory 17 17 18 Rate Blood Pressure 114/77 131/75 130/81 (mmHg) O2 Sat by Pulse 98 97 97 Oximetry 02/05/20 02/05/20 02/05/20 03:39 04:00 05:00 Temperature 97.9 F Pulse Rate 101 81 Respiratory 17 15 Rate Blood Pressure 140/94 146/80 (mmHg) O2 Sat by Pulse 97 97 Oximetry 02/05/20 02/05/20 02/05/20 06:00 07:00 08:00 Temperature Pulse Rate 97 82 Respiratory 19 18 19 Rate Blood Pressure 126/75 (mmHg) O2 Sat by Pulse 95 98 Oximetry Laboratory Results - last 24 hr 02/04/20 02/04/20 02/04/20 15:38 15:38 15:38 WBC 12.7 H RBC 2.35 L Hgb 7.3 L Hct 22 L MCV 93 MCH 31 MCHC 33 RDW 16 H Plt Count 145 L MPV 6.5 L Sodium Potassium Chloride Carbon Dioxide Anion Gap BUN Creatinine Est GFR ( Amer) Est GFR (Non-Af Amer) BUN/Creatinine Ratio Glucose Calcium Phosphorus Magnesium Blood Type Cancelled O Positive Antibody Screen Cancelled Negative Crossmatch See Detail See Detail 02/04/20 02/05/20 02/05/20 23:33 05:30 06:49 WBC 13.2 H RBC 2.75 L Hgb 8.5 L Hct 25 L MCV 91 MCH 31 MCHC 34 RDW 15 Plt Count 134 L MPV 6.6 L Sodium 133 L Potassium TNP 3.4 L Chloride 102 Carbon Dioxide 20 L Anion Gap 11 BUN 12 Creatinine 0.40 L Est GFR ( Amer) 196.3 Est GFR (Non-Af Amer) 162.3 BUN/Creatinine Ratio 30.0 H Glucose 73 Calcium 7.7 L Phosphorus 2.6 Magnesium 1.7 L Blood Type Antibody Screen Crossmatch Intake and Output Last 24 Hours 02/03/20 02/04/20 02/05/20 02/06/20 06:59 06:59 06:59 06:59 Intake Total 2006 1020 2175 0 Output Total 0 100 0 Balance 2006 1020 2075 0 Weight 145 lb 8.081 oz 150 lb 6.307 oz 161 lb 14.72 oz Intake: IV Fluids 7047 960 0714 LR 4800 219 2816 Magnesium 50 106 NS (0.9%) 50 58 Potassium 42 Oral 0 60 0 0 Packed Cells 330 238 337 Output: Urine 0 100 0 Other: Estimated Void Large Medium Large Date of Last Bowel 0 02/05/20 Movement # Bowel Movements 0 1 1 Estimated Stool Amount Large Small Small # Voids 0 1 1 Acetaminophen (Tylenol Tab*) 650 mg PO Q4H PRN PRN Reason: PAIN - MILD Last Admin: 02/02/20 09:23 Dose: 650 mg Acetaminophen (Tylenol 650 Mg Supp) 650 mg VT Q6H PRN PRN Reason: MILD PAIN or TEMP > 100.4 Fentanyl (Duragesic Patch 12 Mcg/Hr *) 12 mcg TRANSDERM Q72H [facility] Last Admin: 02/04/20 12:50 Dose: 12 mcg Lactated Ringer's (Lactated Ringers 1000 Ml Bag*) 1,000 mls @ 75 mls/hr IV PER RATE [facility] Last Admin: 02/04/20 21:29 Dose: 75 mls/hr Ondansetron HCl (Zofran Inj*) 4 mg IV Q4H PRN PRN Reason: NAUSEA/VOMITING Pantoprazole Sodium (Protonix Iv*) 40 mg IV Q24H [facility] Last Admin: 02/04/20 16:42 Dose: 40 mg Pharmacy Profile Note (Fentanyl Patch Check Q Shift) 1 note N/A 0700,1900 [facility] Last Admin: 02/05/20 06:53 Dose: 1 note Assessment: Lower gastrointestinal bleed Uterine cancer with palliative radiotherapy planned History of HIT with prior thrombosis and MCA CVA Plan: As per notes declines endoscopy at this time, GI following Hg improved post prior transfusion Tagged red cell scan with possible lower GI source at splenic flexure, descending colon. Given above , anticoagulation currently contraindicated Will follow
[2020-02-05] MEDS: Lactated Ringers 1000 ML Bag* 1,000 ML IV SCH (11:10)
[2020-02-05] MEDS ORDERED: Iohexol 350* (CONTRAST) 500 ML MDV IV ONE (11:43)
[2020-02-05 19:25] LABS: Hematocrit 25 % (35-47); Hemoglobin 8.6 g/dL (12.0-16.0); Mean Corpuscular HGB Conc 35 g/dL (31-36); Mean Corpuscular Hemoglobin 31 pg (27-31); Mean Corpuscular Volume 90 fL (80-97); Mean Platelet Volume 6.3 fL (7.4-10.4); Platelet Count 138 10^3/uL (150-450); Red Blood Count 2.76 10^6 /uL (3.70-4.87); Red Cell Distribution Width 15 % (10-15); White Blood Count 13.6 10^3/uL (3.5-10.8)
[2020-02-05 19:44] LABS: Albumin 2.1 g/dL (3.2-5.2); Albumin/Globulin Ratio 0.8 (1-3); BUN/Creatinine Ratio 24.3 (8-20); Calcium 7.9 mg/dL (8.6-10.3); EGFR African American 214.8 (>60); EGFR Non-African American 177.5 (>60); Globulin 2.8 g/dL (2-4); Potassium 3.3 mmol/L (3.5-5.0); Total Bilirubin 0.4 mg/dL (0.2-1.0); Total Protein 4.9 g/dL (6.4-8.9)
[2020-02-05 19:58] LABS: ABS Basophils 0.1 10^3/ul (0-0.2); ABS Lymphocytes 0.8 10^3/ul (1.0-4.8); ABS Monocytes 0.6 10^3/ul (0-0.8); ABS Neutrophils 12.2 10^3/ul (1.5-7.7); Lymphocyte % 5.7 %
[2020-02-05] MEDS: Pantoprazole IV* 40 MG IV SCH (20:19)
--- NOTE | 2020-02-05 21:04 | PN ---
Progress Note - Progress Note Date of Service: 02/05/20 Note: Discussed with patient findings of CTA earlier. Discussed that IR embolization would be best option. She [facility] round the [facility] IR [facility]. I have called [facility] for possible transfer; they reviewed images and stated she currently is not bleeding and they do not see a clear source on imaging. They would [place] [facility] and if bleeding recurrs then they would accept her for Angio. Based on discussion she will [place] [facility] [place], continued cbc q8h, transfuse as needed. Not on AC. Currently not on pressors, HR <100. noted last CBC 8.6; replete KCL IV 30meq discussed with patient current plan. CC time 35min Lee Warren MD [employer]
[2020-02-05] MEDS: KCL 10 MEQ/50 ML IVPREMIX* 10 MEQ/50 ML BAG IV SCH (22:05)
[2020-02-06] MEDS: KCL 10 MEQ/50 ML IVPREMIX* 10 MEQ/50 ML BAG IV SCH ×3 (00:25→02:34)
--- NOTE | 2020-02-06 01:29 | TRS ---
CC: Dr. James Linn; Dr. Corby García; Dr. Manan Gastelum and Dr. Glass of GI ; Dr. Warren.* TRANSFER SUMMARY AND DISCHARGE SUMMARY: DATE OF ADMISSION: 01/31/20 DATE OF TRANSFER AND DISCHARGE: 02/06/20 PRIMARY CARE PROVIDER: Dr. James Linn. PRIMARY ONCOLOGIST: Dr. Corby García. ATTENDING FOR THIS DISCHARGE: Dr. Warren.* (DICTATED BY TRUDY DIAZ NP ) HOSPITAL COURSE: Please refer to admitting H and P on 01/31/20, but in short Ms. 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 The patient after being hospitalized in [place] in 2018 for nearly 6 months, she had been transferred to [facility] and then was supposed to start palliative radiation; however, she had intermittent courses of vaginal bleeding and some GI bleeding and diarrhea that had been ongoing for 3 to 4 weeks. She had intermittent hospitalizations in [place] and also at [facility] and was discharged earlier this month, I believe on 01/24/20. The patient did have notable losses in her hemoglobin and hematocrit; however, it was assumed that it was due to her uterine cancer and vaginal bleeding. However, this became more and persistent and then her daughter noticed that her bleeding appeared to be rectal and then she was [place] [facility] [place]. At that time, she was noted to have a hemoglobin of 6.5, last noted hemoglobin was in the 9 to 10 range. Her bleeding is complicated by the fact that she has been on long-term anticoagulation with Pradaxa for known history of her DVT and history of HIT. In the ED, she was given immediately 2 units of packed red blood cells. She had a CT of the abdomen and pelvis which did show some evidence of diverticulosis. No evidence of diverticulitis at that time. She was sent to ICU for close monitoring and was initially evaluated by GI. Oncology was also notified at that time because of her uterine issues; however, her only course of treatment was to stop her anticoagulation and then continue monitoring. It should be noted that she was tachycardic and hypotensive secondary to her GI bleeding and again these are the reasons why she was admitted to ICU. Over the course of the next few days she had been visited by our GI service on multiple occasions. The patient was disinclined to have colonoscopy. She is also high risk for colonoscopy given her uterine mass and bleeding. She does have viscus perforation and also high risk for anesthesia. Aside from that, the patient herself was not agreeable additionally to colonoscopy in either case, so the course of treatment involved supportive care, continued transfusions, and monitoring of her H and H every 8 hours. Over the course of several days, her tachycardia did resolve as did her hypotension; however, she continued to have melena stools. She did initially have a tagged RBC scan on 02/03/20 with initial imaging not showing active bleeding; however, her delayed images did show blood likely in the area of the splenic flexure, but again the patient did decline to have additional intervention by GI. The patient's hemoglobin then dropped off somewhat into the 7 and 21 range. She received an additional unit of packed red cells for a total of 4 units during this hospitalization and then had 2 more additional episodes of melena, one on the morning of 02/04/20 and then one on the morning of 02/05/20. The episode on 02/05/20 was not as significant as when she was first admitted, but was definitely larger than on indicating that her bleeding was increasing again, which suggested to us that the patient needed some sort of intervention; however, given all her risk factors, we could not offer her anything except perhaps interventional radiology. However, after discussing the case with our interventional radiologist we did not have the capability of being able to care for this patient through the weekend as we do not have the service available over the weekend and the patient does continue to bleed. At that time, we reached out to [facility] and they will accept the patient for Interventional Radiology for a CT angiogram and hopeful embolization of bleeding vessels in the repeat CTA of the abdomen and pelvis dated 02/05/20. After having a lengthy discussion with the patient and her son, they have agreed for transfer to higher level of care. REVIEW OF SYSTEMS: Today, she denies any fever, fatigue, or chills. She does have some chronic abdominal pain, but no nausea or vomiting. No chest pain, no shortness of breath. She does have some chronic arthralgias and myalgias but no further constitutional complaints. PHYSICAL EXAMINATION: Reveals an ill-appearing frail female in no acute distress. Vital Signs: Blood pressure 124/72, heart rate 92, respiratory rate 18, O2 saturation 99% on room, with a temperature of 98.6. HEENT: The patient is atraumatic and normocephalic. PERRLA. Nonicteric sclerae. Oral mucosa is dry. Tongue is midline. Neck is supple and nontender. No JVD noted. No carotid bruits auscultated. Cardiovascular: S1 and S2 present. Rate and rhythm are regular. No murmurs, gallops, or rubs noted. Abdomen is soft with some diffuse tenderness throughout the lower quadrants. Positive bowel sounds in all 4 quadrants. is deferred. Musculoskeletal: There is no clubbing and no cyanosis. She has +3 nonpitting edema bilaterally of the lower extremities. Overall skin tone is pale. She has no wounds. Skin is otherwise warm, dry, and intact. Neurologic: She is grossly intact with no focalities. Psychiatric: She is calm, cooperative, and appropriate. LABORATORY DATA: This afternoon's labs are pending. However, from earlier today, WBC is 13.2, RBC is 2.75, hemoglobin 8.5, hematocrit 25, platelets 134. Sodium 133, potassium 3.4, chloride 102, CO2 20, BUN 12, creatinine 0.40, GFR was 62.3, glucose 73, calcium 7.7, phosphorous 2.6, magnesium 1.7. IMAGING: CTA of abdomen and pelvis as noted above. Bleeding scan of 02/03/20 shows delayed anterior imaging, 18 hours post radiopharmaceutical material injection shows an accumulation and activity at the level of the descending colon concerning for the presence of bleeding source at the level of the splenic flexure or descending colon. MEDICATIONS: The patient's home meds are: 1. Tylenol 650 mg p.o. q.4 hours as needed. 2. Atorvastatin 40 mg p.o. daily. 3. Dulcolax 10 mg p.o. daily. 4. Cefdinir 300 mg p.o. b.i.d. 5. Pradaxa 150 mg p.o. b.i.d. 6. Adderall 10 mg p.o. b.i.d. 7. Gabapentin 200 mg p.o. t.i.d. 8. Zofran 4 mg p.o. q.6 hours as needed. 9. Fentanyl patch 12 mcg transderm q.72 hours. Medications while hospitalized: 1. Protonix 40 mg IV q.24 hours. 2. Zofran 4 mg IV q.4 hours as needed. 3. Lactated Ringer's 75 mL per hour. 4. Duragesic patch 12 mcg per hour q.72 hours. 5. Tylenol 650 mg suppository q.6 hours as needed for mild pain or fever. DISPOSITION: The patient will be discharged to [facility] to [facility], room 505, Dr. Parekh is accepting. CONDITION: Stable. The patient is medically optimized for discharge via ALS transport to [facility] once bed availability has been determined. TRUDY DIAZ NP [id number]/CPS #: [id number] NIRALI
[2020-02-06] MEDS ORDERED: Morphine INJ* 2 MG/ML 1 ML SYRINGE (TWO MG - NEW SYRINGE VERSION) ONE (01:39)
[2020-02-06] MEDS: Lactated Ringers 1000 ML Bag* 1,000 ML IV SCH (01:40)
[2020-02-06] MEDS ORDERED: Morphine INJ* 2 MG/ML 1 ML SYRINGE (TWO MG - NEW SYRINGE VERSION) IV ONE (02:00)
[2020-02-06 06:38] LABS: EGFR African American 190.8 (>60); EGFR Non-African American 157.7 (>60); Magnesium 1.5 mg/dL (1.9-2.7); Phosphorus 2.6 mg/dL (2.5-5.0); Potassium 3.9 mmol/L (3.5-5.0)
[2020-02-06] MEDS: fentaNYL Patch Check Q Shift 1 NOTE SCH (08:31)
[2020-02-06] MEDS ORDERED: Magnesium Sulfate 2 GM IV* 2 GM/50 ML BAG IVPB ONE (09:14)
--- NOTE | 2020-02-06 09:27 | PN ---
Progress Note - Progress Note Date of Service: 02/06/20 SOAP: Subjective: Reports more bleeding yesterday CTA with suggestion of ongoing bleeding in region of colonic splenic flexure Current Hg 8.6 Patient reports no bleeding this AM Reviewed with Dr Warren yesterday PM, plans for transfer for embolization Objective: Alert and conversant Abdomen soft Left distal arm amputation Vital Signs - 8 hr 02/06/20 02/06/20 02/06/20 01:40 02:00 03:00 Temperature Pulse Rate 100 90 Respiratory 17 18 12 Rate Blood Pressure 126/74 122/72 (mmHg) O2 Sat by Pulse 99 100 Oximetry 02/06/20 02/06/20 02/06/20 03:46 04:00 05:00 Temperature 98.1 F Pulse Rate 103 86 Respiratory 22 16 Rate Blood Pressure 134/79 123/70 (mmHg) O2 Sat by Pulse 99 100 Oximetry 02/06/20 02/06/20 06:00 07:41 Temperature 98.2 F Pulse Rate 83 Respiratory 13 Rate Blood Pressure 125/70 (mmHg) O2 Sat by Pulse 100 Oximetry Laboratory Results - last 24 hr 02/05/20 02/05/20 02/06/20 19:15 19:15 06:10 WBC 13.6 H RBC 2.76 L Hgb 8.6 L Hct 25 L MCV 90 MCH 31 MCHC 35 RDW 15 Plt Count 138 L MPV 6.3 L Neut % (Auto) 89.6 Lymph % (Auto) 5.7 [place] % (Auto) 4.3 Eos % (Auto) 0.0 Baso % (Auto) 0.4 Absolute Neuts (auto) 12.2 H Absolute Lymphs (auto) 0.8 L Absolute Monos (auto) 0.6 Absolute Eos (auto) 0.0 Absolute Basos (auto) 0.1 Absolute Nucleated RBC 0.0 Nucleated RBC % 0.0 Sodium 133 L 133 L Potassium 3.3 L 3.9 Chloride 101 102 Carbon Dioxide 21 L 22 Anion Gap 11 9 BUN 9 9 Creatinine 0.37 L 0.41 L Est GFR ( Amer) 214.8 190.8 Est GFR (Non-Af Amer) 177.5 157.7 BUN/Creatinine Ratio 24.3 H 22.0 H Glucose 69 L 75 Calcium 7.9 L 8.0 L Phosphorus 2.6 Magnesium 1.5 L Total Bilirubin 0.40 AST 7 L ALT 4 L Alkaline Phosphatase 105 H Total Protein 4.9 L Albumin 2.1 L Globulin 2.8 Albumin/Globulin Ratio 0.8 L Intake and Output Last 24 Hours 02/04/20 02/05/20 02/06/20 02/07/20 06:59 06:59 06:59 06:59 Intake Total 1020 2175 2767 Output Total 0 100 450 Balance 1020 2075 2317 Weight 150 lb 6.307 oz 161 lb 14.72 oz 150 lb 12.739 oz Intake: IV Fluids 722 1838 2268 LR 580 1674 1670 Magnesium 50 106 NS (0.9%) 50 58 598 Potassium 42 IVPB 162 Potassium 162 Oral 60 0 0 Packed Cells 238 337 337 Output: Urine 0 100 450 Other: Estimated Void Medium Large Medium Date of Last Bowel 0 02/05/20 Movement # Bowel Movements 1 1 Estimated Stool Amount Small Small Medium # Voids 1 1 Acetaminophen (Tylenol Tab*) 650 mg PO Q4H PRN PRN Reason: PAIN - MILD Last Admin: 02/02/20 09:23 Dose: 650 mg Acetaminophen (Tylenol 650 Mg Supp) 650 mg GA Q6H PRN PRN Reason: MILD PAIN or TEMP > 100.4 Fentanyl (Duragesic Patch 12 Mcg/Hr *) 12 mcg TRANSDERM Q72H [facility] Last Admin: 02/04/20 12:50 Dose: 12 mcg Magnesium Sulfate (Magnesium Sulfate 2 Gm Iv*) 2 gm in 50 mls @ 50 mls/hr IVPB ONCE ONE Stop: 02/06/20 10:13 Dextrose/Lactated Ringer's (D5lr 1000 Ml Bag*) 1,000 mls @ 75 mls/hr IV PER RATE [facility] Ondansetron HCl (Zofran Inj*) 4 mg IV Q4H PRN PRN Reason: NAUSEA/VOMITING Pantoprazole Sodium (Protonix Iv*) 40 mg IV Q24H [facility] Last Admin: 02/05/20 20:19 Dose: 40 mg Pharmacy Profile Note (Fentanyl Patch Check Q Shift) 1 note N/A 0700,1900 [facility] Last Admin: 02/06/20 08:31 Dose: 1 note Assessment: Ongoing GI bleed likely localized to colon in region of splenic flexure Anemia secondary to #1 Minimal thrombocytopenia likely multifactorial History of HIT with MCA CVA Uterine cancer with plans for palliative radiotherapy Plan: Discussed with Dr Rana Yesterday PM Plans for transfer for embolization Monitor Hg with transfusion PRN Re Check PT PTT Fibrinogen and thrombin time Future palliative radiotherapy for Uterine Carcinoma
[2020-02-06] MEDS ORDERED: D5LR 1000 ML BAG* 1,000 ML IV SCH (10:00)
[2020-02-06 12:38] LABS: Hematocrit 25 % (35-47); Hemoglobin 8.4 g/dL (12.0-16.0); Mean Corpuscular HGB Conc 34 g/dL (31-36); Mean Corpuscular Hemoglobin 31 pg (27-31); Mean Corpuscular Volume 91 fL (80-97); Mean Platelet Volume 6.8 fL (7.4-10.4); Platelet Count 144 10^3/uL (150-450); Red Blood Count 2.75 10^6 /uL (3.70-4.87); Red Cell Distribution Width 15 % (10-15); White Blood Count 12.5 10^3/uL (3.5-10.8)
[2020-02-06 14:26] LABS: ABS Lymphocytes 0.8 10^3/ul (1.0-4.8); ABS Monocytes 0.5 10^3/ul (0-0.8); ABS Neutrophils 11.1 10^3/ul (1.5-7.7); Eosinophil % 0.1 %; Lymphocyte % 6.4 %; Nucleated Red Blood Cells % 0.1
--- NOTE | 2020-02-06 15:05 | PN ---
Progress Note - Progress Note Date of Service: 02/05/20 Note: Pt and family have decided to seek more treatments, consult is canceled/put on hold according to Dr Warren.
[2020-02-06 17:14] VITALS: BP 129/79
[2020-02-06] MEDS: Pantoprazole IV* 40 MG IV SCH (18:01)
== END 2020-02-06 20:45 | disposition short-term general hospital (02) | DRG 254 ==
LOC: ED 14:16 → ICU 16:07
PROVIDERS: ADMIT Internal Medicine; ATTEND Internal Medicine Critical Care Medicine
PROC: 30233N1 Transfusion of Nonautologous Red Blood Cells into Peripheral Vein, Percutaneous Approach (ICD-10-PCS; principal; 2020-01-31)
DX: K92.1 Melena (principal); R57.1 Hypovolemic shock; D62 Acute posthemorrhagic anemia; I69.354 Hemiplegia and hemiparesis following cerebral infarction affecting left non-dominant side; E87.8 Other disorders of electrolyte and fluid balance, not elsewhere classified; F98.8 Other specified behavioral and emotional disorders with onset usually occurring in childhood and adolescence; C54.1 Malignant neoplasm of endometrium; R00.0 Tachycardia, unspecified; D69.6 Thrombocytopenia, unspecified; E78.5 Hyperlipidemia, unspecified; F32.9 Major depressive disorder, single episode, unspecified; I95.9 Hypotension, unspecified; K57.90 Diverticulosis of intestine, part unspecified, without perforation or abscess without bleeding; Z79.01 Long term (current) use of anticoagulants; Z89.202 Acquired absence of left upper limb, unspecified level; Z88.8 Allergy status to other drugs, medicaments and biological substances; Z90.711 Acquired absence of uterus with remaining cervical stump; Z92.21 Personal history of antineoplastic chemotherapy; I25.2 Old myocardial infarction; Z86.711 Personal history of pulmonary embolism; Z86.718 Personal history of other venous thrombosis and embolism; Z79.899 Other long term (current) drug therapy
CPT/HCPCS: 36415; 74174; 74177; 78278; 80048; 80053; 81003; 81015; 82270; 83605; 83690; 83735; 83880; 84100; 84132; 84484; 85025; 85027; 85610; 85730; 86140; 86850; 86900; 86901; 86922; 87086; 87493; 87641; 93005; 96374; 99232; 99233; 99285; A9270-GY; A9512; A9538; J0610; J1170; J2270; J3475; J3480; P9040; Q9967